=== PATIENT | male | born 1955 ===

== ENCOUNTER 2018-05-11 09:29 | Emergency (ER) | payer OTHER, MEDICARE ==
[~2018-05-11] VITALS: Ht 154.9 cm; Wt 127.0 kg
[~2018-05-11 09:29] MED LIST: ACET500 PO; ALBU90OI INH; ASCO500 PO; ASPI81CH PO; ATOR80 PO; CAVERJECT XX; CHOL10002 PO; DOCU100 PO; FOLI1 PO; FURO40 PO; Fergon240 M1 PO; GABA300 PO; ISOMON20 PO; Lantus100 UNIT/1; Lisinopril2.5 MG PO; NITR.4SL SL; Omeprazole20 M1 PO; POLYOX WSR-3011 GM MC; POTCHL10ER PO; POTCHL20ER PO; STRIVERDI RESPIM4 GM INH; TAMS.4ER PO; TUCKS1 EACH PR
[2018-05-11 10:39] LABS: BASOPHILS ABSOLUTE AUTO 0.02 K/mm3 (0.00-0.23); BASOPHILS PERCENT AUTO 0 % (0-2); EOSINOPHILS ABSOLUTE AUTO 0.19 K/mm3 (0.00-0.68); EOSINOPHILS PERCENT AUTO 3 % (0-6); Hematocrit 40.7 % (37.0-53.0); Hemoglobin 12.6 g/dL (13.5-17.5); IMMATURE GRAN ABSOLUTE AUTO 0.02 K/mm3 (0.00-0.10); IMMATURE GRAN PERCENT AUTO 0 % (0-1); LYMPHOCYTES ABSOLUTE AUTO 1.27 K/mm3 (0.84-5.20); LYMPHOCYTES PERCENT AUTO 19 % (21-46); MONOCYTES ABSOLUTE AUTO 0.72 K/mm3 (0.16-1.47); MONOCYTES PERCENT AUTO 11 % (4-13); Mean Corpuscular HGB 24.7 pg (26.0-34.0); Mean Corpuscular Volume 80 fL (80-100); Mean Platelet Volume 10.2 fL (9.1-12.4); NEUTROPHILS ABSOLUTE AUTO 4.33 K/mm3 (1.96-9.15); NEUTROPHILS PERCENT AUTO 66 % (41-73); Platelet Count 182 K/mm3 (150-400); RDW Coefficient Variation 19.3 % (11.7-14.2); RDW Standard Deviation 54.7 fL (35.1-46.3); Red Blood Cell Count 5.11 M/mm3 (4.30-5.90); White Blood Cell Count 6.55 K/mm3 (4.00-11.30)
[2018-05-11 10:48] LABS: Alanine Aminotransfer (ALT/SGP 29 U/L (12-78); Albumin/Globulin Ratio 0.7 (0.8-1.8); Alk Phos 79 U/L (50-136); Anion Gap 7 mmol/L (6-16); Aspartate Aminotrans (AST/SGOT 25 U/L (12-37); Bilirubin, Total 0.5 mg/dL (0.1-1.0); Blood Urea Nitrogen 5 mg/dL (8-24); Bun/Creatinine Ratio 7.3 (12.0-20.0); CO2, Blood 31 mmol/L (21-32); Calcium, Blood 7.8 mg/dL (8.5-10.1); Chloride, Blood 106 mmol/L (98-108); Creatinine, Blood 0.69 mg/dL (0.60-1.20); Globulin, Blood 4.6 g/dL (2.2-4.0); Glomerular Filtration Rate >60 (60-); Glucose, Blood 106 mg/dL (70-99); Potassium, Blood 3.2 mmol/L (3.5-5.5); Sodium, Blood 144 mmol/L (136-145); Total Protein, Blood 7.6 g/dL (6.4-8.2); Troponin I 0.019 ng/mL (0.000-0.040)
== END 2018-05-11 12:14 | disposition home or self-care (01) ==
LOC: ER 09:29
PROVIDERS: Emergency Medicine
DX: R07.89 Other chest pain (principal); Z76.0 Encounter for issue of repeat prescription; Z88.6 Allergy status to analgesic agent; Z88.0 Allergy status to penicillin; Z88.8 Allergy status to other drugs, medicaments and biological substances; Z88.1 Allergy status to other antibiotic agents; Z79.899 Other long term (current) drug therapy; Z79.82 Long term (current) use of aspirin; Z79.4 Long term (current) use of insulin; I11.0 Hypertensive heart disease with heart failure; I50.9 Heart failure, unspecified; E11.40 Type 2 diabetes mellitus with diabetic neuropathy, unspecified; J44.9 Chronic obstructive pulmonary disease, unspecified; F43.10 Post-traumatic stress disorder, unspecified
CPT/HCPCS: 36415; 71046; 80053; 82947; 84484; 85025; 93005; 93010; 99285-25

== ENCOUNTER 2018-11-02 04:16 | Inpatient (IN) | payer OTHER, MEDICARE ==
[~2018-11-02] VITALS: Ht 154.9 cm; Wt 133.8 kg
[~2018-11-02 04:16] MED LIST changes: -Lantus100 UNIT/1; +Lantus100 UNIT/1 SC
[2018-11-02 04:40] LABS: BASOPHILS ABSOLUTE AUTO 0.03 K/mm3 (0.00-0.23); BASOPHILS PERCENT AUTO 0 % (0-2); EOSINOPHILS ABSOLUTE AUTO 0.15 K/mm3 (0.00-0.68); EOSINOPHILS PERCENT AUTO 2 % (0-6); Hematocrit 33.9 % (37.0-53.0); Hemoglobin 10.5 g/dL (13.5-17.5); IMMATURE GRAN ABSOLUTE AUTO 0.06 K/mm3 (0.00-0.10); IMMATURE GRAN PERCENT AUTO 1 % (0-1); LYMPHOCYTES ABSOLUTE AUTO 1.92 K/mm3 (0.84-5.20); LYMPHOCYTES PERCENT AUTO 23 % (21-46); MONOCYTES ABSOLUTE AUTO 0.74 K/mm3 (0.16-1.47); MONOCYTES PERCENT AUTO 9 % (4-13); Mean Corpuscular HGB 24.6 pg (26.0-34.0); Mean Corpuscular Volume 79 fL (80-100); Mean Platelet Volume 9.3 fL (9.1-12.4); NEUTROPHILS PERCENT AUTO 66 % (41-73); Platelet Count 254 K/mm3 (150-400); RDW Coefficient Variation 18.9 % (11.7-14.2); RDW Standard Deviation 54.4 fL (35.1-46.3); Red Blood Cell Count 4.27 M/mm3 (4.30-5.90)
[2018-11-02 04:59] LABS: Alanine Aminotransfer (ALT/SGP 29 U/L (12-78); Albumin, Blood 2.8 g/dL (3.4-5.0); Albumin/Globulin Ratio 0.6 (0.8-1.8); Alk Phos 63 U/L (50-136); Anion Gap 7 mmol/L (6-16); Aspartate Aminotrans (AST/SGOT 23 U/L (12-37); Bilirubin, Total 0.5 mg/dL (0.1-1.0); Blood Urea Nitrogen 13 mg/dL (8-24); Bun/Creatinine Ratio 16.5 (12.0-20.0); CO2, Blood 28 mmol/L (21-32); Calcium, Blood 7.5 mg/dL (8.5-10.1); Chloride, Blood 106 mmol/L (98-108); Creatinine, Blood 0.79 mg/dL (0.60-1.20); Globulin, Blood 4.5 g/dL (2.2-4.0); Glomerular Filtration Rate >60 (60-); Glucose, Blood 126 mg/dL (70-99); Potassium, Blood 3.1 mmol/L (3.5-5.5); Sodium, Blood 141 mmol/L (136-145); Total Protein, Blood 7.3 g/dL (6.4-8.2); Troponin I 0.017 ng/mL (0.000-0.040)
[2018-11-02 11:20] LABS: Source, Urine Clean Catch
[2018-11-02 11:24] LABS: Bilirubin, Urine Neg (Neg); Blood, Urine 3+ (Neg); Glucose Qualitative, Urine Neg (Neg); Ketones, Urine Neg (Neg); Leukocyte Esterase, Urine Neg (Neg); Nitrite, Urine Neg (Neg); Protein, Urine Neg (Neg); Specific Gravity, Urine 1.015 (1.003-1.022); Urobilinogen, Urine NORM (Normal)
[2018-11-02 11:45] LABS: Appearance, Urine Clear (Clear); Color, Urine Pale Yellow (P-Yellow)
[2018-11-02 11:51] LABS: Bacteria Not Seen /hpf; Red Blood Cells, Urine 0-2 /hpf (0-2); Squamous Epithelial Cells Not Seen /hpf (Few); White Blood Cells, Urine Not Seen /hpf (0-5)
[2018-11-02 13:29] LABS: CPK Creatine Kinase 99 U/L (39-308); Troponin I <0.015 ng/mL (0.000-0.040)
--- NOTE | 2018-11-02 17:16 | NUR ---
SHIFT SUMMARY PT HAS DONE WELL SINCE ARRIVAL TO UNIT THIS AM. NO C/O CP OR SOB. RECIEVED TWO K-RIDER, SALINE LOCKED AT THIS TIME. TOLERATING REGULAR DIET, NO N/V. SBA W/TRANSFERS.
[2018-11-02 21:35] LABS: CPK Creatine Kinase 73 U/L (39-308); Troponin I <0.015 ng/mL (0.000-0.040)
--- NOTE | 2018-11-03 00:25 | NUR ---
PT TRANSFER TO MED FLOOR: REPORT GIVEN TO EL León RN AT ABOUT 0000. PT TRANSFERED TO ROOM 311 AT ABOUT 0016.
--- NOTE | 2018-11-03 04:52 | NUR ---
SHIFT SUMMARY: PT IS ALERT AND ORIENTED. PT IS A ONE PERSON ASSIST WITH FWW. PT CALLING OUT OFTEN WHILE IN HIS SLEEP, REPORTS THAT HE HAS NIGHTMARES. PT DID NOT USE HIS CALL LIGHT OVERNIGHT. PT WORE CPAP INTERMITTENTLY. O2 @ 2 L KEEPING SATS > 90%, REPORTS SOB UPON EXERTION. PT DENIES PAIN, NAUSEA, AND VOMITING. NO ACUTE CHANGES OR COMPLICATIONS THIS SHIFT. WILL REPORT TO DAY NURSE.
[2018-11-03 06:54] LABS: Hematocrit 33.4 % (37.0-53.0); Mean Corpuscular HGB 24.5 pg (26.0-34.0); Mean Corpuscular HGB Conc 29.9 g/dL (31.5-36.5); Mean Platelet Volume 9.4 fL (9.1-12.4); Platelet Count 238 K/mm3 (150-400); RDW Coefficient Variation 19.5 % (11.7-14.2); RDW Standard Deviation 57.9 fL (35.1-46.3); Red Blood Cell Count 4.08 M/mm3 (4.30-5.90); White Blood Cell Count 8.21 K/mm3 (4.00-11.30)
[2018-11-03 07:14] LABS: Alanine Aminotransfer (ALT/SGP 28 U/L (12-78); Albumin, Blood 2.8 g/dL (3.4-5.0); Albumin/Globulin Ratio 0.6 (0.8-1.8); Alk Phos 62 U/L (50-136); Anion Gap 6 mmol/L (6-16); Aspartate Aminotrans (AST/SGOT 17 U/L (12-37); Bilirubin, Total 0.5 mg/dL (0.1-1.0); Blood Urea Nitrogen 20 mg/dL (8-24); Bun/Creatinine Ratio 21.2 (12.0-20.0); CHOL/HDL RATIO 4.5; CO2, Blood 31 mmol/L (21-32); Calcium, Blood 7.8 mg/dL (8.5-10.1); Chloride, Blood 102 mmol/L (98-108); Cholesterol 125 mg/dL (50-200); Creatinine, Blood 0.94 mg/dL (0.60-1.20); Globulin, Blood 4.5 g/dL (2.2-4.0); Glomerular Filtration Rate >60 (60-); Glucose, Blood 111 mg/dL (70-99); HDL Cholesterol 28 mg/dL (>39); LDL/HDL RATIO 2.3; Low Density Lipoprotein Chol 65 mg/dL (0-110); Magnesium, Blood 1.7 mg/dL (1.6-2.4); Phosphorus, Blood 4.2 mg/dL (2.5-4.9); Sodium, Blood 139 mmol/L (136-145); Total Protein, Blood 7.3 g/dL (6.4-8.2); Triglycerides 158 mg/dL (30-160); Very Low Density Lipoprot Chol 31 mg/dL (6-32)
[2018-11-03 07:32] LABS: Mean Corpuscular Volume 82 fL (80-100)
--- NOTE | 2018-11-03 07:54 | NUR ---
ASSUMED CARE: PT WEARING BIPAP WHEN FIRST ENTERED ROOM. FEW MINUTES LATER PT SET OFF BED ALARM AND SAT ON SIDE OF BED. STATED HE NEEDED TO GET UP IN CHAIR AND NEEDED FOOD BECAUSE HE WAS "FAMISHED." CHECKED CBG AND PROVIDED SNACKS. CALL LIGHT IN REACH
--- NOTE | 2018-11-03 14:07 | NUR ---
PT FINISHED LUNCH AND CONTINUED TO STATE HE WAS HUNGRY AND WANTED MORE FOOD. BLOOD SUGARS HAVE BEEN STABLE. SNACK PROVIDED. PT CONTINUES TO INSIST HE NEEDS MORE. DISCUSSED WITH HIM THAT HE HAS TO SHARE WITH EVERY OTHER PATIENT ON THE FLOOR AND THAT WE CAN'T KEEP GIVING SNACKS, IN AN ATTEMPT TO LIMIT PER ADA DIET. PT SEEMED AGREEABLE TO THIS
--- NOTE | 2018-11-03 15:07 | NUR ---
PT C/O HEMORRHOID ITCHING AND PAIN AND REQUESTED CREAM. ALSO WONDERED ABOUT NODULE IN LUNG THAT [facility] DISCUSSED WITH HIM AND WANTED TO KNOW IF WE COULD FOLLOW UP ON THIS. DISCUSSED WITH DR CIFUENTES WHO SAYS SHE WILL FOLLOW UP ON NODULE AND GAVE ORDERS FOR CREAM
--- NOTE | 2018-11-03 19:01 | NUR ---
THIS PT HAS USED THE URINAL ON HIS OWN TODAY. HE HAS BEEN IN THE RECLINER ALL THROUGHOUT THE SHIFT WATCHING THE SUPERBOWL. HE CAN BECOME UPSET AT TIMES, USUALLY AROUND MEALTIME. HE USES HIS FWW WHEN STANDING. 1,500 FLUID RESTRICTION.
--- NOTE | 2018-11-04 05:33 | NUR ---
SHIFT SUMMARY: PT IS ALERT AND ORIENTED. PT IS MUCH CALMER AND COOPERATIVE TONIGHT. PT CALLS APPROPRIATELY. PT IS A ONE PERSON ASSIST WITH FWW. PT SLEPT MUCH OF THE NIGHT WHEN NOT DISTURBED. PT CONTINUES TO REPORT INTERMITTENT SOB, O2 @ 2 L, CPAP OVERNIGHT. PT DENIES PAIN, NAUSEA, AND VOMITING. NO ACUTE CHANGES OR COMPLICATIONS THIS SHIFT. BED IN LOW POSITION, CALL LIGHT WITHIN REACH. WILL REPORT TO DAY NURSE.
[2018-11-04 06:18] LABS: Anion Gap 6 mmol/L (6-16); Blood Urea Nitrogen 18 mg/dL (8-24); CO2, Blood 34 mmol/L (21-32); Calcium, Blood 8.1 mg/dL (8.5-10.1); Chloride, Blood 101 mmol/L (98-108); Glucose, Blood 136 mg/dL (70-99); Sodium, Blood 141 mmol/L (136-145)
[2018-11-04 06:53] LABS: Bun/Creatinine Ratio 22.5 (12.0-20.0); Glomerular Filtration Rate >60 (60-); Phosphorus, Blood 3.6 mg/dL (2.5-4.9)
--- NOTE | 2018-11-04 12:12 | NUR ---
NOTIFIED DR. CIFUENTES THAT PT IS CONCERNED ABOUT STRANGE INDENT THAT ALMOST LOOKS LIKE A SCAR ON HIS LOWER BACK. DR. CIFUENTES REPORTS SHE WILL TAKE A LOOK.
--- NOTE | 2018-11-04 16:01 | NUR ---
patient was sitting up in his chair eating lunch when I entered the room. Patient requested that I cast the deamons out of his room. I listened empathically, explored congregational beliefs, provided pastoral investment counselor, provided a Pentec[employer]ism Bible and provided prayer for the removal of the "deamons" from the room. Patient responded well to all interventions and displayed evidence of reduced stress and restored mae. Patient said that he will be able to sleep well tonight. Patient expressed gratitude for visit and prayer.
--- NOTE | 2018-11-04 18:19 | NUR ---
SHIFT SUMMARY- PT IRRITABLE AND WANTING TO LEAVE AMA THIS AM. CIELO, CHARGE NURSE SPOKE WITH PT AND PT DECIDED TO STAY. PT DENIES PAIN. DENIES N/V. DYSPNEA UPON EXERTION. SBA WITH FWW TO THE BATHROOM. PT REPORTS SEEING [facility] THE LAST TWO NIGHTS AND THAT THEY ARE TRYING TO GET HIM. PT REQUESTS TO SPEAK WITH SPIRITUAL CARE. SPIRITUAL CARE IN TO SEE PT. PT TRANSFERED TO SPECIAL CARE UNIT DUE TO OTHER PT'S IN NEARBY ROOMS COMPLAINING ABOUT THE PT'S VOLUME AND PROFANITY. REPORT GIVEN TO CARLOS. NO OTHER SIGNIFICANT CHANGES THIS SHIFT.
--- NOTE | 2018-11-04 18:30 | NUR ---
PT GAVE AUTHORIZATION FOR STUDENT NURSE TO PERFORM ASSESSMENT AND PROVIDE CARE ON 2018
--- NOTE | 2018-11-05 06:09 | NUR ---
*SHIFT SUMMARY* PATIENT IS ALERT AND ORIENTED. PATIENT IS ANXIOUS ABOUT CURRENT ILLNESS. PATIENT REPORTS CONCERN ABOUT A NODULE ON HIS LUNG. PATIENT ATE ALL OF HIS DINNER AND CONTINUED TO REQUEST FOOD AND DRINKS. STAFF EXPLAINED THAT HE WAS ON A FLUID RESTRICTION OF 1500 MLS. PATIENT SLEPT THROUGHOUT THE NIGHT ON CPAP WITH CONTINUOUS PULSE OXIMETRY. BLOOD PRESSURE WAS LOW AT BEGINING OF SHIFT, RECHECKED BLOOD PRESSURE AFTER PATIENT LAID DOWN AND BP INCREASED WNL. PATIENT SLEPT IN CHAIR WITH FEET DOWN MOST OF THE TIME. THIS MORNING HE REPORTED HIS FEET HURT AND AGREED TO ELEVATE THEM. PATIENT DID NOT REPORT ANY CHEST PAINS THROUGHOUT THE NIGHT. CALL LIGHT WITHIN REACH.
[2018-11-05 06:17] LABS: Albumin, Blood 3.1 g/dL (3.4-5.0); Anion Gap 7 mmol/L (6-16); Blood Urea Nitrogen 24 mg/dL (8-24); Bun/Creatinine Ratio 28.2 (12.0-20.0); CO2, Blood 32 mmol/L (21-32); Calcium, Blood 8.5 mg/dL (8.5-10.1); Chloride, Blood 100 mmol/L (98-108); Creatinine, Blood 0.85 mg/dL (0.60-1.20); Glomerular Filtration Rate >60 (60-); Glucose, Blood 102 mg/dL (70-99); Phosphorus, Blood 3.9 mg/dL (2.5-4.9); Potassium, Blood 3.7 mmol/L (3.5-5.5); Sodium, Blood 139 mmol/L (136-145)
[2018-11-05] MEDS ORDERED: Preparation H C51 GM PR (13:26)
--- NOTE | 2018-11-05 15:49 | NUR ---
PATIENT DISCHARGED TO HOME. CURRENTLY LIVING AT THE [facility]. PATIENT STATED HE UNDERSTOOD DISCHARGE INSTRUCTIONS TO FOLLOW UP WITH THE [facility] FOR A PET SCAN. MEDICATION ORDER FAXED TO [facility] VIA GOLD TEAM. IV ACCESS REMOVED. PATIENT ASKED RN TO CALL A TAXI FOR HIM. PATIENT STATED HE WOULD PRIVATELY PAY FOR THE RIDE. PATIENT STATED HE HAD NO FURTHER QUESTIONS. ESCORTED OUT VIA WHEELCHAIR WITH RN. PATIENT GOT SELF INTO TAXI. UPON RETURN TO FLOOR RN RECIEVED A CALL FROM [employer] STATING THAT THE PATIENT WAS CLAIMING [employer] WAS PAYING FOR HIS TAXI, RN REITERATED THAT PATIENT STATED PREVIOUSLY THAT HE WAS PAYING FOR THE RIDE
== END 2018-11-05 14:55 | disposition home health service (06) | DRG 291 ==
LOC: ER 04:16 → MEDS 04:17 → SURS 08:01 → MEDS 11-03 00:15
PROVIDERS: Emergency Medicine; Internal Medicine; ADMIT Internal Medicine
DX: I11.0 Hypertensive heart disease with heart failure (principal); I50.31 Acute diastolic (congestive) heart failure; J96.01 Acute respiratory failure with hypoxia; E66.2 Morbid (severe) obesity with alveolar hypoventilation; Z68.43 Body mass index [BMI] 50.0-59.9, adult; G47.33 Obstructive sleep apnea (adult) (pediatric); J44.9 Chronic obstructive pulmonary disease, unspecified; E11.40 Type 2 diabetes mellitus with diabetic neuropathy, unspecified; N40.0 Benign prostatic hyperplasia without lower urinary tract symptoms; K21.9 Gastro-esophageal reflux disease without esophagitis; D50.9 Iron deficiency anemia, unspecified; E87.6 Hypokalemia; F43.10 Post-traumatic stress disorder, unspecified; Z79.82 Long term (current) use of aspirin; Z79.4 Long term (current) use of insulin; Z79.899 Other long term (current) drug therapy; Z88.6 Allergy status to analgesic agent; Z88.1 Allergy status to other antibiotic agents; Z88.5 Allergy status to narcotic agent; Z88.0 Allergy status to penicillin
CPT/HCPCS: 36415; 71045; 80053; 80061; 80069; 81001; 82550; 82947; 83036; 83735; 83880; 84100; 84484; 85025; 85027; 93005; 93010; 93306; 93971; 94640; 94660; 94761; 94762; 96365; 96366; 96372; 96374; 96375; 96376; 97110; 97161; 97165; 97530; 99285-25; G0378; J1650; J1940; J2405; J3010; J3480

== ENCOUNTER 2018-11-20 03:50 | Emergency (ER) | payer OTHER, MEDICARE ==
[~2018-11-20] VITALS: Ht 154.9 cm; Wt 134.3 kg
[~2018-11-20 03:50] MED LIST changes: +Preparation H C51 GM PR
== END 2018-11-20 05:20 | disposition home or self-care (01) ==
LOC: ER 03:50
DX: S80.12XA Contusion of left lower leg, initial encounter (principal); S80.11XA Contusion of right lower leg, initial encounter; I11.0 Hypertensive heart disease with heart failure; I50.9 Heart failure, unspecified; E11.40 Type 2 diabetes mellitus with diabetic neuropathy, unspecified; J44.9 Chronic obstructive pulmonary disease, unspecified; F43.10 Post-traumatic stress disorder, unspecified; Z88.0 Allergy status to penicillin; Z88.5 Allergy status to narcotic agent; Z88.6 Allergy status to analgesic agent; Z88.1 Allergy status to other antibiotic agents; Z79.82 Long term (current) use of aspirin; Z79.4 Long term (current) use of insulin; Z79.899 Other long term (current) drug therapy; V89.2XXA Person injured in unspecified motor-vehicle accident, traffic, initial encounter
CPT/HCPCS: 99283

== ENCOUNTER 2018-12-06 21:20 | Inpatient (IN) | payer MEDICARE ==
[~2018-12-06] VITALS: Ht 172.7 cm; Wt 126.5 kg
[2018-12-06 21:43] LABS: BASOPHILS ABSOLUTE AUTO 0.05 K/mm3 (0.00-0.23); BASOPHILS PERCENT AUTO 0 % (0-2); EOSINOPHILS ABSOLUTE AUTO 0.02 K/mm3 (0.00-0.68); EOSINOPHILS PERCENT AUTO 0 % (0-6); Hemoglobin 11.3 g/dL (13.5-17.5); IMMATURE GRAN ABSOLUTE AUTO 0.08 K/mm3 (0.00-0.10); IMMATURE GRAN PERCENT AUTO 1 % (0-1); LYMPHOCYTES ABSOLUTE AUTO 1.43 K/mm3 (0.84-5.20); LYMPHOCYTES PERCENT AUTO 12 % (21-46); MONOCYTES ABSOLUTE AUTO 0.92 K/mm3 (0.16-1.47); MONOCYTES PERCENT AUTO 8 % (4-13); Mean Corpuscular HGB 24.1 pg (26.0-34.0); Mean Corpuscular Volume 83 fL (80-100); Mean Platelet Volume 9.7 fL (9.1-12.4); NEUTROPHILS ABSOLUTE AUTO 9.78 K/mm3 (1.96-9.15); NEUTROPHILS PERCENT AUTO 80 % (41-73); Platelet Count 264 K/mm3 (150-400); RDW Coefficient Variation 19.7 % (11.7-14.2); RDW Standard Deviation 59.5 fL (35.1-46.3); Red Blood Cell Count 4.68 M/mm3 (4.30-5.90); White Blood Cell Count 12.28 K/mm3 (4.00-11.30)
[2018-12-06 21:46] LABS: PCO2 Arterial 74.1 mmHg (35-45); PO2 Arterial 107 mmHg (80-100); pH Blood Arterial 7.27 (7.35-7.45)
[2018-12-06 22:14] LABS: Alanine Aminotransfer (ALT/SGP 28 U/L (12-78); Albumin, Blood 3.1 g/dL (3.4-5.0); Albumin/Globulin Ratio 0.6 (0.8-1.8); Alk Phos 66 U/L (50-136); Anion Gap 3 mmol/L (6-16); Aspartate Aminotrans (AST/SGOT 20 U/L (12-37); Bilirubin, Total 0.3 mg/dL (0.1-1.0); Blood Urea Nitrogen 23 mg/dL (8-24); Bun/Creatinine Ratio 28.9 (12.0-20.0); CO2, Blood 34 mmol/L (21-32); Calcium, Blood 8.2 mg/dL (8.5-10.1); Chloride, Blood 105 mmol/L (98-108); Globulin, Blood 5.5 g/dL (2.2-4.0); Glomerular Filtration Rate >60 (60-); Glucose, Blood 112 mg/dL (70-99); Potassium, Blood 4.1 mmol/L (3.5-5.5); Sodium, Blood 142 mmol/L (136-145); Total Protein, Blood 8.6 g/dL (6.4-8.2); Troponin I 0.036 ng/mL (0.000-0.040)
[2018-12-06 23:12] LABS: U Amphetamine Screen DETECTED; U Barbituate Screen Not Detected; U Benzodiazapine Screen Not Detected; U Buprenorphine Screen Not Detected; U Cannabinoids Screen Not Detected; U Cocaine Screen Not Detected; U Methadone Screen Not Detected; U Methamphetamine Screen DETECTED; U Opiates Screen Not Detected; U Oxycodone Screen Not Detected; U Phencyclidine Screen Not Detected; U Propoxyphene Screen Not Detected
--- NOTE | 2018-12-07 01:15 | NUR ---
ASSUMED PT CARE PT ARRIVED ON UNIT VIA STRETCHER. PT OBTUNDED; NOT AROUSING OR RESPONDING TO ANY VERBAL STIMULI; ABRUBTLY WILL OPEN EYES AND THROW ARMS UP IN THE AIR AFTER PRESSURE/PAINFUL STIMULI. HOWEVER, PT IS NOT RESPONDING OR FOLLOWING ANY DIRECTIONS. PT PLACED ON AIRVO WITH FIO2 AT 52%; OXYGEN SATURATIONS WERE LOW 90'S WITH DROPS DOWN INTO THE 80'S. RESPIRATORY THERAPY PLACED PT ON BIPAP WITH 16/7; FIO2 40% WITH OXYGEN SATURATIONS MAINTAINING 91-92%. LUNG SOUNDS HAVE NOTED INSPIRATORY RHONCHI AND EXPIRATORY WHEEZES; BILATERAL BASES ARE TIGHT AND DIMINISHED; NOTED AUDIBLE SNORING. ELEVATED BP'S UPON ARRIVAL. 18G TO RIGHT HAND; 20G TO RIGHT AC. WILL CONTINUE TO MONITOR
[2018-12-07 03:36] LABS: BASOPHILS ABSOLUTE AUTO 0.02 K/mm3 (0.00-0.23); BASOPHILS PERCENT AUTO 0 % (0-2); EOSINOPHILS ABSOLUTE AUTO 0.01 K/mm3 (0.00-0.68); EOSINOPHILS PERCENT AUTO 0 % (0-6); Hematocrit 40.7 % (37.0-53.0); Hemoglobin 11.6 g/dL (13.5-17.5); IMMATURE GRAN ABSOLUTE AUTO 0.09 K/mm3 (0.00-0.10); IMMATURE GRAN PERCENT AUTO 1 % (0-1); LYMPHOCYTES ABSOLUTE AUTO 0.53 K/mm3 (0.84-5.20); LYMPHOCYTES PERCENT AUTO 4 % (21-46); MONOCYTES ABSOLUTE AUTO 0.23 K/mm3 (0.16-1.47); MONOCYTES PERCENT AUTO 2 % (4-13); Mean Corpuscular HGB 24.4 pg (26.0-34.0); Mean Corpuscular HGB Conc 28.5 g/dL (31.5-36.5); Mean Platelet Volume 9.6 fL (9.1-12.4); NEUTROPHILS ABSOLUTE AUTO 12.36 K/mm3 (1.96-9.15); NEUTROPHILS PERCENT AUTO 93 % (41-73); Platelet Count 256 K/mm3 (150-400); RDW Coefficient Variation 19.7 % (11.7-14.2); RDW Standard Deviation 61.5 fL (35.1-46.3); Red Blood Cell Count 4.75 M/mm3 (4.30-5.90); White Blood Cell Count 13.24 K/mm3 (4.00-11.30)
[2018-12-07 03:37] LABS: Mean Corpuscular Volume 86 fL (80-100)
[2018-12-07 03:56] LABS: Alanine Aminotransfer (ALT/SGP 33 U/L (12-78); Albumin, Blood 3.2 g/dL (3.4-5.0); Albumin/Globulin Ratio 0.6 (0.8-1.8); Alk Phos 72 U/L (50-136); Anion Gap 3 mmol/L (6-16); Aspartate Aminotrans (AST/SGOT 22 U/L (12-37); Bilirubin, Total 0.3 mg/dL (0.1-1.0); Blood Urea Nitrogen 21 mg/dL (8-24); Bun/Creatinine Ratio 26.3 (12.0-20.0); CO2, Blood 35 mmol/L (21-32); Chloride, Blood 101 mmol/L (98-108); Globulin, Blood 5.8 g/dL (2.2-4.0); Glomerular Filtration Rate >60 (60-); Glucose, Blood 144 mg/dL (70-99); Potassium, Blood 4.5 mmol/L (3.5-5.5); Sodium, Blood 139 mmol/L (136-145)
[2018-12-07 04:20] LABS: PCO2 Arterial 95.8 mmHg (35-45); PO2 Arterial 73.7 mmHg (80-100)
--- NOTE | 2018-12-07 04:35 | NUR ---
DR. BELL AT BEDSIDE TO ASSESS PT D/T CRITICAL LAB RESULTS. PT REMAINS OBTUNDED. BIPAP HAS BEEN IN PLACE SINCE ARRIVAL TO UNIT AT 0115. DR. BELL REVIEWED BIPAP SETTINGS AND TIDAL VOLUMES. NEW ORDERS TO INTUBATE. ED PHYSICIAN CALLED UP TO INTUBATE. DR. BELL GAVE ORDERS FOR WOOD FURNITURE ASSEMBLER CONSULT, CXR, ABG, AND TO FOLLOW UP WITH HIM REGARDING VENT SETTINGS.
[2018-12-07 05:24] LABS: PO2 Arterial 224 mmHg (80-100)
[2018-12-07 05:25] LABS: PCO2 Arterial 85.3 mmHg (35-45); pH Blood Arterial 7.23 (7.35-7.45)
--- NOTE | 2018-12-07 05:30 | NUR ---
INTUBATION RESTRAINTS PLACED AT 0440. ED DOCTOR AT BEDSIDE WITH ORDERS TO ADMINISTER 20MG OF ETOMIDATE AND 150MG OF SUCC'S. ETT 8.0 PLACED AT 0444; 25 AT THE LIP. BILATERAL BREATH SOUNDS NOTED WITH GOOD COLOR CHANGE. OG PLACED AT 0449; PLACEMENT CHECKED AND CONFIRMED WITH CXR. HOOKED TO LOW INTERMITTENT SUCTION. VENT SETTINGS: AC 16; TV 400; PEEP 5; FIO2 100%. POST ABG RESULTS VENT SETTINGS CHANGED TO AC 18 AND FIO2 70%. PT REMAINS ON SEDATION OF PROPOFOL 50MCG/KG.
[2018-12-07 05:44] LABS: Source, Urine Catheter
[2018-12-07 05:49] LABS: Bilirubin, Urine Neg (Neg); Blood, Urine 5+ (Neg); Glucose Qualitative, Urine Neg (Neg); Ketones, Urine Neg (Neg); Leukocyte Esterase, Urine Neg (Neg); Nitrite, Urine Neg (Neg); Protein, Urine 3+ (Neg); Urobilinogen, Urine NORM (Normal)
[2018-12-07 06:20] LABS: Color, Urine Pale Yellow (P-Yellow)
[2018-12-07 06:21] LABS: Amorphous Mod (0-Heavy); Appearance, Urine Hazy (Clear); Bacteria Rare /hpf; Red Blood Cells, Urine 0-2 /hpf (0-2); Squamous Epithelial Cells Not Seen /hpf (Few); White Blood Cells, Urine Not Seen /hpf (0-5)
--- NOTE | 2018-12-07 06:37 | NUR ---
END OF SHIFT SUMMARY UPON ARRIVAL TO UNIT PT HAS BEEN OBTUNDED WITH OCCASIONAL RESTLESSNESS. PT DID NOT FOLLOW ANY COMMANDS. HE WOULD OPEN HIS EYES AND FLAIL HIS ARMS AFTER PRESSURE OR PAINFUL STIMULI. PINPOINT PUPILS NOTED WELL. BIPAP WAS PLACED UPON ARRIVAL TO UNIT WITH SETTINGS 16/7 AND FIO2 35%; PT ALSO PULLING GOOD TV. LUNGS SOUNDS HAD NOTED RHONCHI T/O WITH TIGHT/DIMINISHED BILATERAL BASES. AFTER [address] BELL CAME UP TO ASSESS PT AT BEDSIDE AND DECIDED TO HAVE THE ED PHYSICIAN COME UP TO INTUBATE. SEE INTUBATION NOTE. PT IS NOW SEDATED WITH PROPOFOL AT 50MCG/KG; VENT SETTINGS AC 18; TV 400; PEEP 5; FIO2 70%. HIDALGO CATHETER PLACED BY OUTSIDE PROPERTY AGENT; PATENT AND DRAINING TO GRAVITY YELLOW, CLEAR URINE. PT APPEARS COMFORTABLE AT THIS TIME
[2018-12-07 06:50] LABS: PCO2 Arterial 68.3 mmHg (35-45); PO2 Arterial 101 mmHg (80-100); pH Blood Arterial 7.33 (7.35-7.45)
--- NOTE | 2018-12-07 07:01 | NUR ---
ASSUMED CARE: PT IN BED, BILATERAL WRIST RESTRAINTS, VENTILATOR AT AC 18/400/60%/5. PROPOFOL AT 50MCG/KG/MIN WITH PT FIDGETING WHEN STIMULATED. OG AT LIS AND HIDALGO CATH IN PLACE. APPEARS COMFORTABLE WHEN ALLOWED TO REST. RT IN ROOM AT THIS TIME.
--- NOTE | 2018-12-07 18:01 | NUR ---
RESIDUAL CHECKED WHILE DR TORRES IN ROOM WITH RESULT OF 60. SHORTLY AFTER, PT BEGAN COUGHING AND TUBE FEED WAS NOTED COMING OUT OF NOSE. LARGE AMOUNT CAME OUT OF MOUTH WELL. AUDIT MGR CALLED TO ROOM AND TUBE FEEDING TURNED OFF. PT PLACED IN HIGH HERNANDEZ'S POSITION AND SUCTION COMPLETED. CALL TO DR TORRES WITH INSTRUCTIONS TO HOLD TUBE FEED OVER NIGHT AND TO SWITCH BACK TO LIS. GREEN FLUID NOTED COMING FROM THIS. DISCUSSED WITH AUDIT MGR FURTHER AND PT REMAINS IN HIGH HERNANDEZ'S AT THIS TIME. XRAY SCHEDULED FOR AM
--- NOTE | 2018-12-07 18:16 | NUR ---
SHIFT SUMMARY: PT VENTED ON AC 18/400/5/50% SATTING MID TO LOW 90S. LUNG SOUNDS SLIGHTLY COARSE AFTER EMESIS EPISODE. DR TORRES AWARE OF THIS AND EPISODE. OG AT LIS PER DR KNOWLES. RESTRAINTS BILATERAL WRISTS AND PROPOFOL AT 50 MCG/KG/MIN DUE TO INCREASING AGITATION WITH STIMULATION. HIDALGO IN PLACE. NO BM THIS SHIFT. NO FURTHER NEEDS NOTED.
--- NOTE | 2018-12-07 19:30 | NUR ---
ASSUMED PT CARE PT SEDATED AND INTUBATED. PROPOFOL INFUSING AT 50MCG/KG. VENT SETTINGS AC 18; TV 400; PEEP 5; FIO2 50%. OG IS CONNECTED TO LOW INTERMITTENT SUCTION WITH YELLOW STOMACH CONTENTS NOTED IN SUCTION CANNISTER. BILATERAL SOFT WRIST RESTRAINTS REMAIN IN PLACE. PT IS QUIET AT THIS TIME; NOT PULLING ON RESTRAINTS. HIDALGO CATH APPEARS PATENT AND DRAINING CLEAR, YELLOW URINE TO GRAVITY. NO FAMILY AT BEDSIDE.
[2018-12-08 04:00] LABS: BASOPHILS PERCENT AUTO 0 % (0-2); EOSINOPHILS PERCENT AUTO 0 % (0-6); Hematocrit 36.6 % (37.0-53.0); Hemoglobin 11.1 g/dL (13.5-17.5); IMMATURE GRAN ABSOLUTE AUTO 0.05 K/mm3 (0.00-0.10); IMMATURE GRAN PERCENT AUTO 1 % (0-1); LYMPHOCYTES ABSOLUTE AUTO 0.67 K/mm3 (0.84-5.20); LYMPHOCYTES PERCENT AUTO 7 % (21-46); MONOCYTES ABSOLUTE AUTO 0.38 K/mm3 (0.16-1.47); MONOCYTES PERCENT AUTO 4 % (4-13); Mean Corpuscular HGB 24.4 pg (26.0-34.0); Mean Corpuscular HGB Conc 30.3 g/dL (31.5-36.5); Mean Platelet Volume 9.7 fL (9.1-12.4); NEUTROPHILS ABSOLUTE AUTO 8.24 K/mm3 (1.96-9.15); NEUTROPHILS PERCENT AUTO 88 % (41-73); Platelet Count 273 K/mm3 (150-400); RDW Coefficient Variation 19.7 % (11.7-14.2); RDW Standard Deviation 57.5 fL (35.1-46.3); Red Blood Cell Count 4.54 M/mm3 (4.30-5.90); White Blood Cell Count 9.34 K/mm3 (4.00-11.30)
[2018-12-08 04:11] LABS: Mean Corpuscular Volume 81 fL (80-100)
[2018-12-08 04:23] LABS: Anion Gap 9 mmol/L (6-16); Blood Urea Nitrogen 24 mg/dL (8-24); Bun/Creatinine Ratio 36.1 (12.0-20.0); CO2, Blood 32 mmol/L (21-32); Calcium, Blood 7.9 mg/dL (8.5-10.1); Chloride, Blood 98 mmol/L (98-108); Creatinine, Blood 0.66 mg/dL (0.60-1.20); Glomerular Filtration Rate >60 (60-); Glucose, Blood 161 mg/dL (70-99); Magnesium, Blood 1.9 mg/dL (1.6-2.4); Phosphorus, Blood 3.6 mg/dL (2.5-4.9); Potassium, Blood 3.3 mmol/L (3.5-5.5); Sodium, Blood 139 mmol/L (136-145)
[2018-12-08 05:03] LABS: PCO2 Arterial 53.6 mmHg (35-45); PO2 Arterial 114 mmHg (80-100); pH Blood Arterial 7.46 (7.35-7.45)
--- NOTE | 2018-12-08 05:44 | NUR ---
SBT/SEDATION VACATION PROPOFOL WEANED DOWN FROM 50MCG/KG TO 10MCG/KG PRIOR TO WEAN. PT ABLE TO OPEN EYES AND SQUEEZE HAND ON COMMAND. PT CALM AT FIRST, BUT THEN BECAME VERY AGITATED VERY QUICKLY AND STARTED HITTING HIS FISTS AGAINST THE SIDERAILS. PT MEDICATED WITH 50MCG OF FENTANYL. VENT SETTINGS CHANGED FROM AC 18 TO SPONTANEOUS WITH PRESSURE SUPPORT 5/5 WITH FIO2 50%; BUT SHORTLY INCREASED TO 7/5 D/T PT ONLY PULLING TV LESS THAN 200. AFTER PS INCREASED TO 7/5 PT PULLING ADEQUATE TV GREATER THAN 400. PT REMAINED CALM AND COOPERATIVE T/O SBT; FOLLOWING COMMANDS AND ABLE TO SHAKE HEAD YES/NO TO QUESTIONS. VS REMAINED STABLE WITH SBP REMAINING LESS THAN 180. GAG AND COUGH REFLEX INTACT.
--- NOTE | 2018-12-08 06:40 | NUR ---
END OF SHIFT SUMMARY PT HAS REMAINED INTUBATED AND SEDATED WITH PROPOFOL AT 50MCG/KG. ABLE TO TURN DOWN TO 10MCG/KG WITH 50MCG OF FENTANYL GIVEN DURING SBT; SEE NOTES. PT ABLE TO OPEN EYES, FOLLOW SIMPLE COMMANDS, AND SHAKE HEAD YES/NO TO QUESTIONS. HOWEVER, PT WOULD BECOME VERY AGITATED, HITTING HIS HANDS AGAINST THE SIDERAILS. BILATERAL SOFT WRIST RESTRAINTS REMAIN INTACT. PT MEDICATED FOR AGITATION PER ORDERS; HOWEVER, PT IS NO EASY TO TALK DOWN TO A CALM STATE ONCE AGITATION STARTS. MEDICATED WITH FENTANYL THREE TIMES AND ATIVAN TWICE THIS SHIFT PER ORDERS. VENT SETTINGS REMAIN AT AC 18; TV 400; PEEP 5; FIO2 50% WITH OXYGEN SATURATIONS MAINTAINING GREATER THAN 92%. LUNG SOUNDS REMAIN RHONCHUS T/O WITH PT HAVING OCCASIONAL COUGHING FITS WITH MINIMAL THICK, GAINES SPUTUM; LUNG SOUNDS TEND TO CLEAR AFTER SUCTIONING. PT HAS REMAINED NSR WITH BBB AND OCCASIONAL PVC'S AND PAC'S T/O NIGHT; HR 80-90'S. OG HOOKED TO LOW INTERMITTENT SUCTION WITH BRIGHT YELLOW OUPUT; MINIMAL ACCOUNTED FOR. PT APPEARS COMFORTABLE AT THIS TIME.
--- NOTE | 2018-12-08 08:00 | NUR ---
MALE PATIENT WITH ORAL ET TO VENT. TV 400. AC 18, FIO2 40 AND PEEP OF 5. DOES BREATHE ABOVE VENT RATE. LUNGS CLEAR. GRIMACES WHEN DISTURBED. PROPOFOL AT 50MICS/KG/MIN. NS AT 10ML/HOUR. GENERALIZED EDEMA BUT MOST IN HIS LEGS MORIAH. LEFT LEG HAS A KERLIX DRESSING AROUNG THE GALF. HEEL PROTECTORS ON MORIAH. ALSO MORIAH WRIST RESTRAINTS ON TO PREVENT PATIENT SELF EXTUBATION.
--- NOTE | 2018-12-08 13:14 | NUR ---
WOUND DRESSING ON LEFT LEG REMOVED FOR DR CIFUENTES. WOUND CLEANED WITH SPRAY SANDING LINE OPERATOR AND REDRESSED WITH KERLIX AND ABD. SPEC SENT TO LAB.
--- NOTE | 2018-12-08 13:21 | NUR ---
DR TORRES IN TO EXAMINE PATIENT. 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
[2018-12-09 03:23] LABS: Albumin, Blood 2.8 g/dL (3.4-5.0); Anion Gap 9 mmol/L (6-16); Blood Urea Nitrogen 24 mg/dL (8-24); CO2, Blood 33 mmol/L (21-32); Calcium, Blood 7.8 mg/dL (8.5-10.1); Chloride, Blood 98 mmol/L (98-108); Creatinine, Blood 0.65 mg/dL (0.60-1.20); Glomerular Filtration Rate >60 (60-); Glucose, Blood 153 mg/dL (70-99); Magnesium, Blood 2.2 mg/dL (1.6-2.4); Phosphorus, Blood 3.8 mg/dL (2.5-4.9); Potassium, Blood 3.4 mmol/L (3.5-5.5); Sodium, Blood 140 mmol/L (136-145)
--- NOTE | 2018-12-09 05:39 | NUR ---
WEAN ON HOLD DUE TO CODE ON ANOTHER PT REQUIRING STAFF. PRECEDEX PAUSED AT THIS TIME. WILL PASS ONTO DAY SHIFT.
--- NOTE | 2018-12-09 05:48 | NUR ---
DRESSING TO LLE CHANGED AT 0400
--- NOTE | 2018-12-09 07:30 | NUR ---
ASSUMED CARE OF PATIENT; SEE ASSESSMENT CHARTING FOR DETAILS. PATIENT SEDATED ON PROPOFOL GTT AT 40MCG/KG/MIN.; RIKERS SCALE 3. VENT. SETTINGS: A/C 18, TV, 400, PEEP 5 AND FIO2 40%; BIOX STAYING IN MID TO HIGH 90'S. NS INFUSING AT TKO; USED FOR IVPB'S. SUCTIONED ETT FOR LARGE AMOUNTS OF GAINES SECRETIONS. MONITOR REMAINS NSR WITH BBBP; BP MODERATELY ELEVATED. HIDALGO DRAINING LARGE AMOUNTS OF LT. YELLOW URINE; TO RECEIVE DIURETIC TX. AROUND 0900. TUBE FEEDING INFUSING WITH VITAL HIGH PROTEIN AT 25ML/HR; < 10CC RESIDUAL. SWELLING TO ALL EXTREM.; ELEVATED ON PILLOWS. LUNGS CLEAR AFTER SUCTIONING OTHERWISE COARSE ANTERIORLY.
--- NOTE | 2018-12-09 07:50 | NUR ---
T/C FROM LAB RE: BLOOD CULTURE WITH GRAM + COCCI IN CLUSTERS. RN T/C TO DR. MAYEN; HE WILL ARRIVE AT HOSPITAL, BEFORE TO [facility], AND ADDRESS.
--- NOTE | 2018-12-09 08:55 | NUR ---
DR. TORRES CAME BY; SHE STATES SHE ALREADY STARTED TREATING INFECTION WITH ZYVOXX; SHE WILL BE GIVING DR. MAYEN UPDATE.
--- NOTE | 2018-12-09 10:26 | NUR ---
PROPOFOL GTT INCREASED TO 50MCG/KG/MIN., PATIENT RESTLESS; PULLING ON RESTRAINTS AND HIGH PRESSURING VENT.
--- NOTE | 2018-12-09 12:00 | NUR ---
NO ACUTE CHANGES; CBG 148; NO COVERAGE INDICATED. REPOSITIONED AND ORAL CARE DONE. EMPTIED 1000CC, MORE, OF URINE FROM CATHETER BAG.
--- NOTE | 2018-12-09 16:00 | NUR ---
RESTLESS AND TRYING TO PULL OFF RESTRAINTS; HIGH PRESSURING VENT. RN SUCTIONED PATIENT FOR COPIOUS AMOUNTS OF GAINES TO WHITE THICK MUCUS. COARSE UPPER AIRWAYS; BIOX. STABLE WITH FIO2 AT 35%. PROPOFOL DRIP AT 50MCG/KG/MIN; REPOSITIONED PATIENT AND HE SETTLED DOWN.
--- NOTE | 2018-12-09 16:45 | NUR ---
INCREASING AGITATION; FENTANYL 50MCG/IV TO PROMOTE COMFORT.
--- NOTE | 2018-12-09 18:00 | NUR ---
SUMMARY: MEDICATED WITH 2MG IV AND INCREASED PROPOFOL TO 60MCG/KG/MIN. CALMED AND THEN RN REDUCED PROPOFOL BACK TO 50MCG/KG/MIN D/T SBP DOWN TO 107. GOOD URINE OUTPUT (2500); TOLERATING TUBE FEEDINGS WELL. NO VENT. CHANGES T/O DAY. REMAINS IN DROPLET ISOLATION D/T MRSA SPUTUM/WOUNDS AND NOW + BLOOD CULTURES (GRAM + COCCI IN CLUSTERS). WILL REPORT TO ONCOMING RN.
--- NOTE | 2018-12-10 04:10 | NUR ---
PROPOFOL TITRATED DOWN OVER PAST HOUR AND IS NOW OFF FOR WEAN AT 0430. PRECEDEX ON HAND IF NEEDED.
[2018-12-10 04:15] LABS: BASOPHILS ABSOLUTE AUTO 0.01 K/mm3 (0.00-0.23); BASOPHILS PERCENT AUTO 0 % (0-2); EOSINOPHILS PERCENT AUTO 0 % (0-6); Hematocrit 39.1 % (37.0-53.0); Hemoglobin 11.6 g/dL (13.5-17.5); IMMATURE GRAN ABSOLUTE AUTO 0.16 K/mm3 (0.00-0.10); IMMATURE GRAN PERCENT AUTO 1 % (0-1); LYMPHOCYTES ABSOLUTE AUTO 0.68 K/mm3 (0.84-5.20); LYMPHOCYTES PERCENT AUTO 5 % (21-46); MONOCYTES ABSOLUTE AUTO 0.93 K/mm3 (0.16-1.47); MONOCYTES PERCENT AUTO 7 % (4-13); Mean Corpuscular HGB 24.2 pg (26.0-34.0); Mean Corpuscular HGB Conc 29.7 g/dL (31.5-36.5); Mean Corpuscular Volume 82 fL (80-100); Mean Platelet Volume 9.7 fL (9.1-12.4); NEUTROPHILS ABSOLUTE AUTO 10.81 K/mm3 (1.96-9.15); NEUTROPHILS PERCENT AUTO 86 % (41-73); NRBC ABSOLUTE 0.02 K/mm3 (0.00-0.02); NRBC Auto 0.2 /100 WBC (0.0-0.2); Platelet Count 273 K/mm3 (150-400); RDW Standard Deviation 59.2 fL (35.1-46.3); Red Blood Cell Count 4.79 M/mm3 (4.30-5.90); White Blood Cell Count 12.59 K/mm3 (4.00-11.30)
--- NOTE | 2018-12-10 04:20 | NUR ---
PROPOFOL OFF SINCE 399. PT AWAKE AND FOLLOWING COMMANDS. PT BECAME SLIGHTLY AGITATED AND PULLING AT RESTRAINTS. PRECEDEX STARTED AT 0.3 mcg/kg/hr WITH PT BECOMING CALM AND COOPERATIVE. PRECEDEX REDUCED TO 0.2 mcg/kg/hr. PT REMAINING AWAKE CALM AND COOPERATIVE. WILL TITRATE DOWN IF ABLE. VSS.
--- NOTE | 2018-12-10 04:24 | NUR ---
DR. MAYEN: START OF SHIFT. IV IN RIGHT HAND LEAKING AND HARDENING NOTED AROUND R AC IV. PT WAS AWAKENING. IV STARTS FAILED WITH PT HAVING NO ACCESS AVAILABLE. DR. MAYEN NOTIFIED AND WAS AT BEDSIDE AT APPROX 2215. CENTRAL LINE PLACED AND VERIFIED VIA XRAY.
[2018-12-10 04:29] LABS: Albumin, Blood 2.8 g/dL (3.4-5.0); Anion Gap 7 mmol/L (6-16); Blood Urea Nitrogen 28 mg/dL (8-24); Bun/Creatinine Ratio 44.7 (12.0-20.0); CO2, Blood 34 mmol/L (21-32); Calcium, Blood 7.9 mg/dL (8.5-10.1); Chloride, Blood 98 mmol/L (98-108); Creatinine, Blood 0.63 mg/dL (0.60-1.20); Glomerular Filtration Rate >60 (60-); Glucose, Blood 144 mg/dL (70-99); Magnesium, Blood 2.5 mg/dL (1.6-2.4); Phosphorus, Blood 3.9 mg/dL (2.5-4.9); Potassium, Blood 3.5 mmol/L (3.5-5.5); Sodium, Blood 139 mmol/L (136-145)
--- NOTE | 2018-12-10 05:02 | NUR ---
PT TOLERATED WEAN WELL. PT REMAINED ON NO PROPOFOL AND ON 2mcg/kg/hr PRECEDEX. PT MOTIONED TO WRITE AND WAS GIVEN PEN AND AND CLIP BOARD. PT ASKED WHERE HE WAS AT AND WHEN. PT BEGAN TO TEAR UP WHEN TOLD. PT CONSOLED ABOUT CURRENT STAY AND PLAN. PT INFORMED OF RETURN OF SEDATION FOR REST. PT RESTING AND WAS RETURN TO ASSIST/VENT AND PROPOFOL TITRATED UP TO 50mcg/kg/hr. WILL CONTINUE TO MONITOR.
--- NOTE | 2018-12-10 08:10 | NUR ---
CARE ASSUMED CARE AND REPORT ASSUMED FROM SANTOS EDGAR. PT INTUBATED AND SEDATED. VENT AC 18, 400, PEEP 5, FIO2 30%. PROPOFOL GTT INFUSING AT 50 MCG/KG/MIN. ETT SECURED. TOLERATING TF THROUGH OGT AT GOAL RATE WITH 0 ML RESIDUAL. BUE RESTRAINED. SEDATION VACATION LASTING APPROX 20 MINUTES; PT WAS ANXIOUS WHEN AWAKE, PULLING AT RESTRAINTS AND BITING ETT. UNABLE TO DIRECT AND FOLLOW COMMANDS. HOB ELEVATED. HIDALGO CATH SECURED AND PATENT. WILL CONTINUE TO MONITOR.
--- NOTE | 2018-12-10 12:08 | NUR ---
REASSESSMENT NO SIGNIFICANT CHANGES SINCE PRIOR ASSESSMENT. PT REMAINS INTUBATED ON VENTILATOR AC 18, TV 400, PEEP 5, FIO2 30%. PROPOFOL GTT INFUSING AT 50 MCG/KG/MIN. TOLERATING TF AT GOAL RATE. BUE REMAIN RESTRAINED. HOB ELEVATED. NSR, HR 90S. WILL CONTINUE TO MONITOR.
--- NOTE | 2018-12-10 15:28 | NUR ---
No family at time of visit. Mr. Pack is ventilated and non-responsive. Prayer provided at bedside, and i will remain available to pt and loved ones.
--- NOTE | 2018-12-10 16:45 | NUR ---
REASSESSMENT PT REMAINS INTUBATED ON VENT AC 18, 400, 5, 30%. SEDATED WTIH PROPOFOL GTT AT 45 MCG/KG/MIN. TOLERATING TF AT GOAL RATE WITH 0 ML RESIDUALS. HOB ELEVATED AND PT TURNED. URINE SLIGHT GREEN COLOR; WILL TITRATE PROPOFOL GTT DOWN TOLERATED. AFEBRILE. VSS. NSR WITH BBB, HR 80S. BP STABLE. BUE RESTRAINED. WILL CONTINUE TO MONITOR.
--- NOTE | 2018-12-10 17:52 | NUR ---
SHIFT SUMMARY PT REMAINED INTUBATED AND SEDATED ENTIRE SHIFT EXCEPT DURING SEDATION VACATION. VSS ENTIRE SHIFT. MAP GREATER THAN 65 AND HR 80-90S IN REGULAR RHYTHM WITH BBB. NO S/S PAIN. DURING SEDATION VACATION, PT BECAME ANXIOUS AND PULLED ON RESTRAINTS AND ATTEMPTED BITING ETT; WAS UNABLE TO CONSOLE AND UNABLE TO FOLLOW COMMANDS DUE TO AGITATION. AFEBRILE ENTIRE SHIFT. NO BM. DRESSINGS CHANGED ON LLE IN AFTERNOON; BLOODY OOZE DURING CLEANSING. TOLERATED TF ENTIRE SHIFT WITH ZERO RESIDUALS. NO FAMILY CONTACT OR VISITORS DURING SHIFT. HOB ELEVATED AND PT TURNED Q2H. PT HAD MODERATE AMOUNTS OF THICK, WHITE SECRETIONS. 1200 ML OUTPUT FROM HIDALGO CATHETER. HAS REMAINED IN BUE. WILL GIVE BEDSIDE, HANDOFF REPORT TO TYRESE EDGAR.
--- NOTE | 2018-12-10 19:15 | NUR ---
ASSUMED CARE ASSUMED CARE OF PATIENT. REMAINS INTUBATED- AC 18, TV 400, PEEP 5, FIO2 30%. SEDATED WITH PROPOFOL @ 45MCG/KG/MIN. OPENS EYES TO NOXIOUS STIMULI. MOVES ALL EXTREMITITES WEAKLY. NOT FOLLOWING COMMANDS. KRISTYN, 2MM. BILATERAL SOFT WRIST RESTRAINTS IN PLACE TO PREVENT SELF-EXTUBATION. MONITOR SHOWS NSR WITH BBB AND OCCASIONAL, PVCs- RATE 80s. BP STABLE. OG WITH VITAL HIGH PROTEIN AT GOAL RATE OF 25CC/HR. HIDALGO PATENT AND DRAINING CLEAR YELLOW URINE. LSC CENTRAL LINE NOTED- DRSG C/D/I. HEEL PROTECTORS IN PLACE. SEE PHOTOS FOR WOUND DOCUMENTATION. REMAINS IN CONTACT/DROPLET ISOLATION FOR MRSA IN WOUND AND IN SPUTUM. SEE SHIFT ASSESSMENT FOR FULL ASSESSMENT.
[2018-12-11 04:19] LABS: BASOPHILS ABSOLUTE AUTO 0.02 K/mm3 (0.00-0.23); BASOPHILS PERCENT AUTO 0 % (0-2); EOSINOPHILS PERCENT AUTO 0 % (0-6); Hematocrit 39.2 % (37.0-53.0); Hemoglobin 11.7 g/dL (13.5-17.5); IMMATURE GRAN ABSOLUTE AUTO 0.28 K/mm3 (0.00-0.10); IMMATURE GRAN PERCENT AUTO 3 % (0-1); LYMPHOCYTES ABSOLUTE AUTO 1.04 K/mm3 (0.84-5.20); LYMPHOCYTES PERCENT AUTO 9 % (21-46); MONOCYTES ABSOLUTE AUTO 0.92 K/mm3 (0.16-1.47); MONOCYTES PERCENT AUTO 8 % (4-13); Mean Corpuscular HGB 23.9 pg (26.0-34.0); Mean Corpuscular HGB Conc 29.8 g/dL (31.5-36.5); Mean Corpuscular Volume 80 fL (80-100); Mean Platelet Volume 9.7 fL (9.1-12.4); NEUTROPHILS ABSOLUTE AUTO 8.89 K/mm3 (1.96-9.15); NEUTROPHILS PERCENT AUTO 80 % (41-73); NRBC ABSOLUTE 0.04 K/mm3 (0.00-0.02); NRBC Auto 0.4 /100 WBC (0.0-0.2); Platelet Count 251 K/mm3 (150-400); RDW Coefficient Variation 20.6 % (11.7-14.2); RDW Standard Deviation 58.7 fL (35.1-46.3); White Blood Cell Count 11.15 K/mm3 (4.00-11.30)
[2018-12-11 04:33] LABS: Albumin, Blood 2.8 g/dL (3.4-5.0); Anion Gap 6 mmol/L (6-16); Blood Urea Nitrogen 28 mg/dL (8-24); Bun/Creatinine Ratio 44.4 (12.0-20.0); CO2, Blood 33 mmol/L (21-32); Calcium, Blood 7.8 mg/dL (8.5-10.1); Chloride, Blood 100 mmol/L (98-108); Creatinine, Blood 0.63 mg/dL (0.60-1.20); Glomerular Filtration Rate >60 (60-); Glucose, Blood 142 mg/dL (70-99); Phosphorus, Blood 3.6 mg/dL (2.5-4.9); Potassium, Blood 4.1 mmol/L (3.5-5.5); Sodium, Blood 139 mmol/L (136-145)
--- NOTE | 2018-12-11 04:55 | NUR ---
SEDATION/SBT PRECEDEX STARTED @ 0.5MCG/KG/HR FOR WEANING TRIAL. PROPOFOL TITRATED DOWN AT THIS TIME. WILL TITRATE PROPOFOL TO OFF. RT AT BEDSIDE.
--- NOTE | 2018-12-11 06:33 | NUR ---
SHIFT SUMMARY NO ACUTE CHANGES DURING NOC. VENT SETTINGS UNCHANGED. REMAINS SEDATED WITH PROPOFOL @ 45MCG/KG/MIN. SBT DONE WITH 0.2-0.5MCG/KG/HR OF PRECEDEX. PT AWAKE AND FOLLOWING SIMPLE COMMANDS DURING WEANING TRIAL. SLIGHTLY AGITATED DURING WEAN, BUT CALMED DOWN WITH REASSURANCE/INSTRUCTION. BILATERAL SOFT WRIST RESTRAINTS REMAIN IN PLACE- PT DOES REACH FOR ETT WHEN AWAKE AND RESTRAINTS ARE LOOSENED/OFF. MEDICATED WITH ATIVAN 2MG IV X 1 DURING SHIFT FOR INCREASED AGITATION. VSS DURING NOC. MONITOR SHOWS NSR WITH BBB AND OCCASIONAL PVCs, RATE 70-90s. AFEBRILE. OG WITH VITAL HIGH PROTEIN @ GOAL RATE OF 25CC/HR. OG RESIDUALS <10CC. HIDALGO PATENT AND DRAINING TO GRAVITY. REMAINS IN DROPLET/CONTACT ISOLATION. WILL REPORT TO DAY SHIFT RN WHEN AVAILABLE.
--- NOTE | 2018-12-11 08:15 | NUR ---
INITIAL ASSESSMENT PATIENT INTUBATED AND SEDATED. PATIENT UNRESPONSIVE, + GAG AND COUGH REFLEXES NOTED. PROPOFOL DECREASED FROM 45 TO 35 MCG/ KG/ MINUTE. CNVI OF ZERO. PATIENT AFEBRILE. PATIENT SATTING OVER 92% ON AC 18, TV 400, PEEP 5, AND 30% FIO2. LUNGS CLEAR IN UPPER LOBES AND DIMINISHED IN LOWER LOBES. SHALLOW BREATHS NOTED. PATIENT HAS OCCASIONAL, PRODUCTIVE COUGH. MODERATE AMOUNT OF THICK, GAINES, BLOOD TINGED SPUTUM BEING SUCTIONED FROM ETT. PATIENT IN NSR WITH BBB, HR 70S TO 80S. BP STABLE. TRACE EDEMA NOTED TO BUES, 1+ EDEMA NOTED TO BLES. PULSES STRONG. ABDOMEN MODERATELY DISTENDED, SOFT, NONTENDER, WITH HYPOACTIVE BS. PATIENT IS TOLERATING VHP TF AT GOAL RATE OF 25 MLS/ HOUR WITH 30 ML WATER FLUSH Q4H WELL. RESIDUAL OF ZERO THIS AM. HIDALGO DRAINING YELLOW/ GREEN COLORED URINE. PATIENT HAS SCATTERED BRUISES. BUTTOCKS REDDENED. LLL ULCER NOTED- DRESSING C/D/I. BLES DRY/ SCALY/ DISCOLORED. SCAB TO L THIGH. PROPOFOL INFUSING AT 35 MCG/ KG/ MINUTE, NS TKO. BED LOW, CALL LIGHT IN REACH. WILL CONTINUE TO MONITOR PATIENT FREQUENTLY THROUGHOUT SHIFT.
--- NOTE | 2018-12-11 09:00 | NUR ---
PROPOFOL PLACED ON STANDBY AT 0840. PATIENT NOW PLACED ON PS 5/5, 30% FIO2. PATIENT IS FOLLOWING SOME SIMPLE COMMANDS. WILL CONTINUE TO MONITOR.
--- NOTE | 2018-12-11 12:15 | NUR ---
PATIENT LYING QUIETLY IN BED. NO SIGNS OF PAIN. PATIENT CALM, SLEEPING. PATIENT AGITATED EARLIER AND GIVEN PRN ATIVAN. PATIENT ON PRECEDEX AT 0.4 MCG/ KG/ HOUR. PROP HAS BEEN ON SB FOR WEAN AND SEDATION VACATION. PATIENT WEAK BUT MOVES ALL EXTREMITIES. PATIENT SATTING OVER 92% ON PRESSURE SUPPORT OF 5/5, 30% FIO2. PATIENT IN SR WITH BBB AND OCCASIONAL PACS. HR 70S TO 80S. BP STABLE. BS OF 124- COVERAGE NOT NEEDED. TF REMAINS INFUSING AT GOAL. RESIDUAL OF 80 ML OBTAINED AND REINSTILLED. NO OTHER ACUTE CHANGES TO NOTE ON AT THIS TIME. BED LOW, CALL LIGHT IN REACH. WILL CONTINUE TO MONITOR PATIENT FREQUENTLY THROUGHOUT SHIFT.
--- NOTE | 2018-12-11 14:10 | NUR ---
PATIENT EXTUBATED WITH NO PROBLEMS BY RT. PATIENT SATTING 90% AND GREATER ON RA. OG PULLED WHEN EXTUBATED. PATIENT NPO AT THIS TIME AND WILL HAVE SWALLOW EVAL IN MORNING. RESTRAINTS DC'D. WILL CONTINUE TO MONITOR.
--- NOTE | 2018-12-11 15:45 | NUR ---
PATIENT RESTING QUIETLY IN BED. PATIENT ORIENTED TO SELF AND FOLLOWING DIRECTIONS. PATIENT CALM AND COOPERATIVE. PATIENT AFEBRILE. PATIENT HAS NO COMPLAINTS OF PAIN. SPEECH GARBLED AND DIFFICULT TO UNDERSTAND AT TIMES. PATIENT SATTING 90% AND GREATER ON 2 L NC. PATIENT HAS OCCASIONAL, NONPRODUCTIVE COUGH. PATIENT IN SR WITH BBB. HR 60S TO 70S, BP STABLE. PATIENT HAD LARGE, LOOSE, BROWN BM EARLIER. HIDALGO REMAINS DRAINING ADEQUATE AMOUNTS OF YELLOW/ GREEN COLORED URINE. PRECEDEX REMAINS INFUSING AT 0.4 MCG/ KG/ HOUR. NO OTHER ACUTE CHANGES TO NOTE ON AT THIS TIME. WILL CONTINUE TO MONITOR.
--- NOTE | 2018-12-11 16:11 | NUR ---
PATIENT BECAME VERY AGITATED, TRYING TO CRAWL OUT OF BED. PRECEDEX INCREASED TO 0.6 MCG/ KG/ HOUR. DR. MAYEN ORDERED SCHEDULED ATIVAN. 1 MG GIVEN AND PATIENT IS NOW RESTING QUIETLY IN BED. WILL CONTINUE TO MONITOR.
--- NOTE | 2018-12-11 16:38 | NUR ---
PATIENT BECAME VERY AGITATED AGAIN, NOT FOLLOWING COMMANDS AND TRYING TO CRAWL OUT OF BED. PATIENT GIVEN PRN 1 MG IV ATIVAN AND PLACED IN [place] VEST. PATIENT NOW SLEEPING. PATIENT FALL RISK. WILL CONTINUE TO MONITOR.
--- NOTE | 2018-12-11 19:10 | NUR ---
SHIFT SUMMARY PATIENT EXTUBATED THIS SHIFT. PATIENT ORIENTED TO SELF AND FOLLOWING SIMPLE COMMANDS AT SOME TIMES. PATIENT HAS BEEN VERY AGITATED THIS AFTERNOON. ATIVAN HAS BEEN GIVEN, WELL ZYPREXA. PATIENT PUT INTO KATARZYNA RESTRAINT HAS BEEN AGITATED, CONFUSED, TRYING TO CRAWL OUT OF BED AND IS A FALL RISK. PATIENT GIVEN PRN FENTANYL OT THIS SHIFT FOR PAIN. PATIENT HAS REMAINED AFEBRILE. PATIENT ABLE TO MOVE ALL EXTREMITIES. PATIENT HAS REMAINED SATTING WELL ON 1- 2 L NC SINCE EXTUBATION. PATIENT HAS OCCASIONAL, NONPRODUCTIVE COUGH. PATIENT HAS REMAINED IN SR WITH BBB AND OCCASIONAL PACS. HR MOSTLY 60S TO 80S. BP HAS REMAINED STABLE. PATIENT HAD 3 LARGE, LOOSE, BROWN BMS THIS SHIFT. OG REMOVED AND TF STOPPED WHEN EXTUBATED. PATIENT WILL REMAIN NPO AND HAVE SWALLOW EVAL IN THE MORNING. HIDALGO HAS DRAINED ADEQUATE AMOUNT OF YELLOW/ GREEN URINE. NO CHANGE IN SKIN. PRECEDEX INFUSING AT 1.2 MCG/ KG/ HOUR AND, PER TIARRA, CAN BE INCREASED UP TO 1.4 MCG/ KG/ HOUR. NS TKO. BED LOW, CALL LIGHT IN REACH. REPORT GIVEN TO ASSUMING SHORT GOODS DRIER NURSE.
--- NOTE | 2018-12-12 00:28 | NUR ---
PT SEDATION: PT SEDATIOIN MEDICATION REDUCTION. PT REMAINING SUFFICIENTLY SEDATED WITH LESS SEDATION. PRECEDEX TITRATED DOWN AND CURRENTLY AT 0.7mcg/kg/hr. 0000 SCHEDULED ATIVAN NOT GIVEN. PT VSS, CANDIE 1mm, 1L N/C SATS 95-97%. PT WITH OCCASIONAL EXTREMITY MOVEMENT. OTHERWISE PT CALM AND APPEARS COMFORTABLE.
--- NOTE | 2018-12-12 02:49 | NUR ---
SEDATION VACATION: PRECEDEX TITRATED DOWN TO 0.2mcg/kg/hr. PT BEGAN MUMBLING. PRECEDEX PAUSED. PT FOLLOWED DIRECTIONS AND KNEW PERSON AND PLACE BUT REPEATEDLY STATING, "PULL ME OFF THE BED" CURSING IN BETWEEN. PT NOT TRYING TO CONVERSE AND GREW AGITATED REPEATING, "PULL ME OFF THE BED". PRECEDEX RETURNED TO 0.3mcg/kg/hr. PT CONTINUING TO MUMBLE BUT IS NOT PULLING AND TRYING TO GET OUT OF BED. VSS. WILL CONTINUE TO MONITOR.
[2018-12-12 04:04] LABS: BASOPHILS ABSOLUTE AUTO 0.01 K/mm3 (0.00-0.23); BASOPHILS PERCENT AUTO 0 % (0-2); EOSINOPHILS ABSOLUTE AUTO 0.09 K/mm3 (0.00-0.68); EOSINOPHILS PERCENT AUTO 1 % (0-6); IMMATURE GRAN ABSOLUTE AUTO 0.15 K/mm3 (0.00-0.10); IMMATURE GRAN PERCENT AUTO 2 % (0-1); LYMPHOCYTES ABSOLUTE AUTO 2.12 K/mm3 (0.84-5.20); LYMPHOCYTES PERCENT AUTO 21 % (21-46); MONOCYTES ABSOLUTE AUTO 0.91 K/mm3 (0.16-1.47); MONOCYTES PERCENT AUTO 9 % (4-13); Mean Corpuscular HGB 24.1 pg (26.0-34.0); Mean Corpuscular HGB Conc 29.3 g/dL (31.5-36.5); Mean Corpuscular Volume 82 fL (80-100); Mean Platelet Volume 9.9 fL (9.1-12.4); NEUTROPHILS PERCENT AUTO 68 % (41-73); Platelet Count 237 K/mm3 (150-400); RDW Coefficient Variation 20.5 % (11.7-14.2); RDW Standard Deviation 59.7 fL (35.1-46.3); Red Blood Cell Count 4.98 M/mm3 (4.30-5.90); White Blood Cell Count 10.18 K/mm3 (4.00-11.30)
[2018-12-12 04:21] LABS: Albumin, Blood 2.8 g/dL (3.4-5.0); Anion Gap 5 mmol/L (6-16); Blood Urea Nitrogen 27 mg/dL (8-24); Bun/Creatinine Ratio 41.6 (12.0-20.0); CO2, Blood 34 mmol/L (21-32); Calcium, Blood 7.9 mg/dL (8.5-10.1); Chloride, Blood 105 mmol/L (98-108); Creatinine, Blood 0.65 mg/dL (0.60-1.20); Glomerular Filtration Rate >60 (60-); Glucose, Blood 97 mg/dL (70-99); Phosphorus, Blood 3.2 mg/dL (2.5-4.9); Potassium, Blood 3.6 mmol/L (3.5-5.5); Sodium, Blood 144 mmol/L (136-145)
--- NOTE | 2018-12-12 04:46 | NUR ---
PRECEDEX PAUSED: PRECEDEX TITRATED DOWN TO 0.1mcg/KG/hr AND IS NOW PAUSED. PT MUMBLING WORDS, "TAKE THIS BITCH OFF" TUGGING AT KATARZYNA VEST. PT NOT OPENING EYES SPONTANEOUSLY. PT NOT REDIRECTIONAL AT THIS TIME AND CONITNUES TO FALL ASLEEP. VSS. WILL KEEP PRECEDEX OFF MONITORING PT FOR AGIATION AND INTERACT WITH PT PT AWAKENS.
--- NOTE | 2018-12-12 06:12 | NUR ---
PT REMAINS WITH EYES CLOSED OFF PRECEDEX SINCE 429. PT OCCASIONALLY YELLING OUT BUT NOT INTERACTING WITH RN AT BEDSIDE. VSS. KATARZYNA IN PLACE. WILL CONTINUE TO MONITOR.
--- NOTE | 2018-12-12 06:20 | NUR ---
PT YELLING OUT. DID USE CALL LIGHT BUT ONLY YELLS, "LET ME OUTA HERE". PT BANGING CALL LIGHT ON BED AND NOT FOLLOWING DIRECTIONS. PT ONLY CONTINUED TO YELL OUT WHEN RN TRYING TO CONSOLE AND REDIRECT PT. PT BECOMING MORE AGITATED THIS RN TRIED EXPLAINING THE NEED FOR COOPERATION AND GOALS FOR DISCHARGE. PT ONLY YELLED REPEATING, "LET ME OUT" AND CURSING BANGING CALL LIGHT ON BED. RESTARTED PRECIDEX FOR PT AGITATION AND ACTING OUT. VSS. WILL CONTINUE TO MONITOR.
--- NOTE | 2018-12-12 07:15 | NUR ---
ASSUMED CARE: PT RESTING IN BED AT THIS TIME. NC IN PLACE, VSS. KATARZYNA VEST ON, PRECEDEX AT 0.4 MCG/KG/MIN. NO ACUTE NEEDS OR CONCERNS AT THIS TIME.
--- NOTE | 2018-12-12 10:28 | NUR ---
DISCUSSED PT'S CURRENT STATUS WITH DIETITIAN. SHE RECOMMENDS WE CONTINUE TRYING TO WEAN OFF PRECEDEX AND ATTEMPT SWALLOW STUDY AND ADDRESS DIET TOMORROW. PT REMAINS OF 0.4MCG/KG/MIN PRECEDEX AND BECOMES VERY AGITATED AND COMBATIVE WHEN TITRATED DOWN. WILL CONTINUE TO ATTEMPT AND MONITOR
--- NOTE | 2018-12-12 18:03 | NUR ---
SHIFT SUMMARY: PT HAS REMAINED ON PRECEDEX MAJORITY OF THE DAY WITH EXCEPTION OF ABOUT 15 MINUTES. ATTEMPTED TO TITRATE DOWN AND HAD TO RESTART BASED ON PT'S AGITATION. REMAINS IN KATARZYNA VEST. NPO DUE TO SOMNOLENCE. PLAN FOR SWALLOW EVAL WHEN PT AWAKENS MORE. HOPE IS TO EITHER START ORAL INTAKE OR NUTRITION TOMORROW DEPENDING ON PT COOPERATION AND SEDATION. AWAITING IV FLUIDS WITH D5 FOR BLOOD SUGARS. NO FURTHER NEEDS OR CONCERNS AT THIS TIME.
--- NOTE | 2018-12-13 07:30 | NUR ---
ASSUMED CARE OF PATIENT; SEE ASSESSMENT CHARTING FOR DETAILS. PATIENT SLEEPING; COARSE BREATH SOUNDS T/O; ATTEMPTED USING YANKAUER SX CATHETER TO GET MUCUS FROM MOUTH AND BACK OF THROAT; SMALL AMOUNT OF WHITE TO GAINES COLORED MUCUS BUT PATIENT REMAINS VERY RASPY SOUNDING. OXYGEN AT 2L/MIN VIA NC; BIOX LOW TO MID 90'S. HIDALGO TO GRAVITY AND DRAINING MOD. AMOUNTS OF MED. TO SHERYL COLORED URINE. PRECEDEX GTT INFUSING AT 0.6MCG/KG/MIN. RIKERS SCALE ABOUT 3; ROUSES TO LOUD VERBAL OR TACTILE STIMULATION; ATTEMPTS TO PULL WRISTS OUT OF RESTRAINTS; WILL MUMBLE OR SHOUT OUT CURSE WORDS; BACK TO SLEEP WHEN NOT DISTURBED. DIFFICULT TO ASSESS MENTAL STATUS. MAINT. IVF OF D51/2NS INFUSING AT 75ML/HR. SCD IN PLACE TO R FOOT; OFF OF L FOOT D/T STASIS ULCERS; DRESSINGS TO L CALF/DRY AND INTACT.
--- NOTE | 2018-12-13 08:15 | NUR ---
PRECEDEX REDUCED TO 0.4MCG/KG/MIN; ROUSES BUT QUICKLY BACK TO SLEEP.
--- NOTE | 2018-12-13 09:30 | NUR ---
PRECEDEX GTT REDUCED TO 0.2MCG/KG/MIN; PATIENT ALMOST SOMNOLENT.
--- NOTE | 2018-12-13 09:45 | NUR ---
DR. MAYEN HERE; ADJUSTING ZYPREXA DOSING AND GETTING RID OF ROUTINE ATIVAN; WANTS PRECEDEX GTT TITRATED OFF ( TOLERATED). NOTE: RN CRUSHED PATIENTS MEDS (HELD MIRALAX) AND DISSOLVED IN WATER; GIVEN TO PATIENT WITH A 10CC SYRINGE AFTER HOB UP TO 90 DEGREES AND MORE ALERT. SWALLOWING INCREASED MOIST COUGH AND LARGE AMOUNT OF PHLEGM COUGHED UP BY PATIENT; RN AND RT AT BEDSIDE AND USED YANKAUER SX TO HELP REMOVE SECRETIONS. RN HAD TO USED GLOVED FINGER AND REMOVE LARGE, THICK (LIKE GLUE) GLOB OF MUCUS; PATIENTS' BREATHING IMPROVED. 02 PLACED IN MOUTH D/T ORAL BREATHING.
--- NOTE | 2018-12-13 11:45 | NUR ---
PRECEDEX GTT REDUCED TO 0.1MCG/KG/MIN; PATIENT REMAINS VERY SLEEPY AND DIFFICULT TO KEEP ALERT.
--- NOTE | 2018-12-13 16:15 | NUR ---
PRECEDEX GTT PLACED IN STANDBY MODE; RN REPOSITIONED PATIENT AND PATIENT BECAME; LOUD/YELLING AND CUSSING AND TRYING TO GET HANDS OUT OF RESTRAINTS; AFTER SETTLED PATIENT FELL BACK TO SLEEP.
--- NOTE | 2018-12-13 17:30 | NUR ---
HOB UPRIGHT; PATIENT ENCOURAGED TO AWAKE FOR MEAL; PATIENT STATES HE IS HUNGRY. PUREED AND HONEY THICK FLUIDS, ETC GIVEN; ZYPREXA CRUSHED AND GIVEN WITH PUREED FRUIT; PATIENT NEEDING REMINDERS TO BEND HEAD FORWARD WITH SWALLOWING; NO INCIDENT OF CHOKING BUT REQUIRES FEEDING AND SUPERVISION WITH MEALS; SWALLOW EVAL TO BE DONE SPEECH TX. TOMORROW; ATTEMPTED TODAY BUT PATIENT TOO SOMNOLENT. OFF PRECEDEX GTT AND AROUSES MORE READILY. REQUIRES BILAT. WRIST RESTRAINTS D/T AGITATED TIMES WHEN MORE ALERT AND ATTEMPT TO GET OUT OF RESTRAINTS/PULL LINES ETC; KATARZYNA VEST ALSO IN PLACE FALL PREVENTION; D/T PATIENT UNPREDICTABLE. CONT. WITH MOIST COUGH BUT PATIENT MANAGING SECRETIONS EASIER; LESS CHEST RHONCHI.
--- NOTE | 2018-12-13 21:05 | NUR ---
PT WAS AGITATED YELLING OUT. ASKED PT WHAT WAS BOTHERING HIM AND HE STATES "HURT ALL OVER". GAVE FENTANYL AND PT RESPONDED WELL. OFF PRECEDEX FOR NOW. PT ASKS SAME QUESTIONS REPEATEDLY. WANTING TO LEAVE. KATARZYNA VEST AND SOFT WRIST RESTRAINTS ON DUE TO IMPULSIVENESS, INCREASED FALL RISK, AND RISK OF PULLING VITAL LINES. INCREASED O2 TO 2L AFTER PAIN MEDS DUE TO DESATING TO 88%. NO SIGN OF DISTRESS.
--- NOTE | 2018-12-13 23:01 | NUR ---
PT STATES HE NEED TO HAVE BM. ATTEMPTED BEDPAN BUT PT BECOMES AGITATED, SWINGING AT STAFF, AND HITTING THE BEDRAILS WHEN HANDS ARE UNRESTRAINED. TRIED TO REORIENT AND REDIRECT BUT NEITHER WORKED.
[2018-12-14 03:49] LABS: BASOPHILS ABSOLUTE AUTO 0.01 K/mm3 (0.00-0.23); BASOPHILS PERCENT AUTO 0 % (0-2); EOSINOPHILS ABSOLUTE AUTO 0.33 K/mm3 (0.00-0.68); EOSINOPHILS PERCENT AUTO 4 % (0-6); Hematocrit 40.6 % (37.0-53.0); Hemoglobin 11.7 g/dL (13.5-17.5); IMMATURE GRAN ABSOLUTE AUTO 0.11 K/mm3 (0.00-0.10); IMMATURE GRAN PERCENT AUTO 1 % (0-1); LYMPHOCYTES ABSOLUTE AUTO 1.45 K/mm3 (0.84-5.20); LYMPHOCYTES PERCENT AUTO 16 % (21-46); MONOCYTES ABSOLUTE AUTO 0.92 K/mm3 (0.16-1.47); MONOCYTES PERCENT AUTO 10 % (4-13); Mean Corpuscular HGB 24.5 pg (26.0-34.0); Mean Corpuscular HGB Conc 28.8 g/dL (31.5-36.5); Mean Platelet Volume 9.4 fL (9.1-12.4); NEUTROPHILS ABSOLUTE AUTO 6.43 K/mm3 (1.96-9.15); NEUTROPHILS PERCENT AUTO 70 % (41-73); Platelet Count 223 K/mm3 (150-400); RDW Coefficient Variation 19.7 % (11.7-14.2); RDW Standard Deviation 60.4 fL (35.1-46.3); Red Blood Cell Count 4.78 M/mm3 (4.30-5.90); White Blood Cell Count 9.25 K/mm3 (4.00-11.30)
[2018-12-14 03:50] LABS: Mean Corpuscular Volume 85 fL (80-100)
[2018-12-14 04:07] LABS: Albumin, Blood 2.5 g/dL (3.4-5.0); Anion Gap 3 mmol/L (6-16); Blood Urea Nitrogen 15 mg/dL (8-24); Bun/Creatinine Ratio 26.5 (12.0-20.0); CO2, Blood 33 mmol/L (21-32); Chloride, Blood 106 mmol/L (98-108); Creatinine, Blood 0.57 mg/dL (0.60-1.20); Glomerular Filtration Rate >60 (60-); Glucose, Blood 116 mg/dL (70-99); Potassium, Blood 4.5 mmol/L (3.5-5.5); Sodium, Blood 142 mmol/L (136-145)
--- NOTE | 2018-12-14 05:57 | NUR ---
SUMMARY PT WAS OFF PRECEDEX AT BEGINING OF SHIFT BUT WAS RESTARTED AFTER HE WAS NOT REDIRECTABLE, NOT FOLLOWING COMMANDS, YELLING OUT, HITTING BEDRAIL WITH CALL LIGHT AND SWINGING AT STAFF. PRECEDEX TITRATED DOWN TO 0.2 NOW. NO SIGN OF DISTRESS NOW.
--- NOTE | 2018-12-14 07:30 | NUR ---
ASSUMED CARE OF PATIENT; SEE ASSESSMENT CHARTING FOR DETAILS. LUNGS COARSE T/O; MOIST COUGH WITH SOME PRODUCTION. IN DEPTH ORAL CARE DONE BY RN D/T MOUTH VERY DRY AND MUCUS SOMEWHAT STICKY. PATIENT MORE ALERT AND APPEARS TO BE FOLLOWING SOME COMMANDS. C/O BEING HUNGRY; RN WILL MIX CRUSHED AM MEDS IN APPLESAUCE TO ALLOW LESS CHANCE FOR ASPIRATION. SPEECH TX. TO EVAL. THIS AM; UNCLEAR AT WHAT TIME. OXYGEN AT 2L/MIN VIA NC. BIOX MID TO HIGH 90'S. HIDALGO TO GRAVITY AND DRAINING MOD. AMOUNTS OF LT. SHERYL URINE. LE'S VERY DRY; NO DRESSINGS INDICATED AT THIS TIME (NO OPENED SKIN); ALL EXTREM. ELEVATED ON PILLOWS TO REDUCE CHANCE OF SWELLING. D5 1/2 NS INFUSING AT 75ML/HR. PRECEDEX GTT INFUSING AT 0.O2 MCG/KG/MIN. HAS KATARZYNA VEST AND BILAT. WRIST (SOFT) RESTRAINTS; WILL TRY AND TITRATE OFF PRECEDEX.
--- NOTE | 2018-12-14 09:00 | NUR ---
SPEECH THERAPIST HERE TO NEYMAR. PATIENT; RN HAD JUST SETTLED PATIENT AFTER GIVING HIM HIS AM MEDS. IN APPLESAUCE AND THEN SOME THICKENED WATER GIVEN TO INCREASE FLUIDS AND PREVENT CHOKING. PATIENT SLEEPY, AGAIN; RN AND THERAPIST ENCOURAGED PATIENT TO WAKE UP WITH LOUD VOICES, ETC. PATIENT REPOSITIONED BACK TO UPRIGHT POSITION; SOME PUDDING GIVEN BY THERAPIST AFTER TESTING PATIENTS GAG, SWALLOW AND COUGH REFLEXES. PATIENT EATING WITH EYES CLOSED; WILL OPEN IF REQUESTED BUT THEN SHUTS EYES; NO PROBLEMS WITH EATING SMOOTH/THICKENED FOODS. THERAPIST WANTS PATIENT ONLY TO RECEIVE CRUSHED PO MEDS IN A FEW BITES OF APPLESAUCE OR PUDDING; UNLESS PATIENT MUCH MORE ALERT; REQUIRES BEING FED AND MONITORED CLOSELY WITH HOB UPRIGHT.
--- NOTE | 2018-12-14 12:00 | NUR ---
WRIST RESTRAINTS REMOVED AND PATIENT REMAINS WITH VEST RESTRAINT. MORE ALERT AND WANTING TO NOT BE RESTRAINED; STATES HE WAS IN [place] [employer] AND A POW AND HATES BEING TIED. RN'S X2 RELEASED WRIST RESTRAINTS AND REINFORCED NEED TO NOT PULL ON LINES ETC; V/U.
--- NOTE | 2018-12-14 13:00 | NUR ---
PHYSICAL THERAPIST HERE; RN ASSISTED WITH GETTING PATIENT TO DANGLE/STAND ETC (SEE THERAPY NOTES). VEST REMOVED FOR ACTIVITY AND LEFT OFF; PATIENT COOPERATIVE.
--- NOTE | 2018-12-14 18:00 | NUR ---
SUMMARY: RESTLESS; REQUIRING ROUTINE PO SEDATION MEDS AND RN GAVE DOSE OF FENTANYL, EARLIER, TO HELP CALM PATIENT AND MAKE HIM MORE COMFORTABLE; STATES HE HAS NEUROPATHY IN HIS LE'S. LUNGS COARSE BUT IMPROVE AFTER COUGHING AND ORAL SUCTIONING; PATIENT HOLDING YANKAUER AND ABLE TO SUCTION SELF EFFECTIVELY; ALSO ABLE TO USE CALL LIGHT FOR RN AND TV CONTROLS; LIKES TO WATER MOVIES. BECOMES INCREASINGLY AGITATED AND THEN WILL CALM; RN FED PATIENT MULTIPLE PUDDINGS AND THICKENED WATER; C/O HUNGER AND WANTING SOMETHING MORE SOLID; SPEECH THERAPIST TO RE-EVAL.ON SUNDAY. PRECEDEX DRIP REMAINS OFF BUT MAY NEED TO RESTART THIS EVENING.
--- NOTE | 2018-12-14 18:30 | NUR ---
HALDOL GIVEN IV PER REQUEST OF DR. MAYEN; ORDERED PRN. PATIENT ALSO RECEIVING 25MG,PO, OF LIBRIUM TID WILL ZYPREXA 10MG PO Q 6HOURS. WILL REPORT TO ONCOMING RN AND MAY NEED TO RESTART PRECEDEX DRIP AND POSSIBLY RE-APPLY VEST.
--- NOTE | 2018-12-14 19:41 | NUR ---
PT WAS UP IN RECLINER CHAIR WHEN THIS RN ENTERED ROOM. PT STANDING UP ON HIS OWN AND UNSTEADY GAIT. STRETCHING CENTRAL LINE IV ACROSS THE ROOM. WILL NOT FOLLOW COMMANDS. YELLING AND CALLING STAFF NAMES. GOT PT TO BED AND WENT TO GET PAIN MEDS AND PT HAD ROLLED ON TO HIS STOMACH IN BED WITH CENTRAL LINE ONCE AGAIN PULLED UNDERNEATH OF HIM. PRECEDEX RESTARTED AND RESTRAINTS RESTARTED TO KEEP CENTRAL LINE FROM GETTING PULLED OUT. PT IS NOT REDIRECTABLE AND WILL NOT FOLLOW SIMPLE COMMANDS FOR HIS OWN SAFETY.
[2018-12-15 04:07] LABS: BASOPHILS ABSOLUTE AUTO 0.01 K/mm3 (0.00-0.23); BASOPHILS PERCENT AUTO 0 % (0-2); EOSINOPHILS ABSOLUTE AUTO 0.38 K/mm3 (0.00-0.68); EOSINOPHILS PERCENT AUTO 4 % (0-6); Hematocrit 39.7 % (37.0-53.0); Hemoglobin 11.5 g/dL (13.5-17.5); IMMATURE GRAN ABSOLUTE AUTO 0.09 K/mm3 (0.00-0.10); IMMATURE GRAN PERCENT AUTO 1 % (0-1); LYMPHOCYTES ABSOLUTE AUTO 1.54 K/mm3 (0.84-5.20); LYMPHOCYTES PERCENT AUTO 16 % (21-46); MONOCYTES ABSOLUTE AUTO 0.98 K/mm3 (0.16-1.47); MONOCYTES PERCENT AUTO 10 % (4-13); Mean Corpuscular HGB 24.3 pg (26.0-34.0); Mean Corpuscular Volume 84 fL (80-100); Mean Platelet Volume 9.7 fL (9.1-12.4); NEUTROPHILS ABSOLUTE AUTO 6.82 K/mm3 (1.96-9.15); NEUTROPHILS PERCENT AUTO 69 % (41-73); Platelet Count 229 K/mm3 (150-400); RDW Coefficient Variation 19.6 % (11.7-14.2); RDW Standard Deviation 58.5 fL (35.1-46.3); Red Blood Cell Count 4.73 M/mm3 (4.30-5.90); White Blood Cell Count 9.82 K/mm3 (4.00-11.30)
[2018-12-15 04:22] LABS: Albumin, Blood 2.5 g/dL (3.4-5.0); Anion Gap 4 mmol/L (6-16); Blood Urea Nitrogen 13 mg/dL (8-24); Bun/Creatinine Ratio 21.7 (12.0-20.0); CO2, Blood 33 mmol/L (21-32); Calcium, Blood 8.2 mg/dL (8.5-10.1); Chloride, Blood 105 mmol/L (98-108); Glomerular Filtration Rate >60 (60-); Glucose, Blood 113 mg/dL (70-99); Phosphorus, Blood 2.8 mg/dL (2.5-4.9); Sodium, Blood 142 mmol/L (136-145)
--- NOTE | 2018-12-15 06:39 | NUR ---
SUMMARY PT WAS PLACED BACK ON PRECEDEX DURING THE NIGHT AND IN SOFT WRIST RESTRAINTS DUE TO PULLING AT LINES, HITTING AND TRYING TO BITE STAFF, AND AT ONE POINT HE PULLED THE IV POLE WITH PUMPS OVER ON TOP OF HIMSELF IN THE BED. TITRATED PRECEDEX OFF THIS AM IN ANTICIPATION OF SPEECH EVAL TO BE DONE THIS AM. PT WILL ROUSE AND START YELLING OUT. NO OTHER CHANGES.
--- NOTE | 2018-12-15 07:30 | NUR ---
ASSUMED CARE OF PATIENT; SEE ASSESSMENT CHARTING FOR DETAILS. PATIENT SLEEPY; AROUSES TO VERBAL STIMULI; PRECEDEX DRIP REMAINS OFF. D5 1/2NS INFUSING AT 75ML/HR. LE'S VERY DRY AND POOR COLOR (BLUISH/PURPLE) D/T POOR CIRCULATION; NO OPENED STASIS ULCERS NOTED AT THIS TIME. LUNGS COARSE T/O; PRODUCTIVE COUGH OF THICK YELLOW/WHITE MUCUS; SPITS IT IN KLEENEX AND SOMETIMES SWALLOWS IT. VSS AND MONITOR REMAINS NSR; AFEBRILE. HIDALGO DRAINING MOD TO LARGE AMOUNTS OF LT SHERYL URINE. SMEAR OF STOOL; BUTTOCKS CLEANED UP AND PATIENT REPOSITIONED. BILAT. SOFT WRIST RESTRAINTS IN PLACE TO PREVENT PULLING OF CENTRAL LINE AND OTHER LINES. PATIENT IMPULSIVE AND ON ORAL SEDATIVE MEDS.; UNPREDICTABLE.
--- NOTE | 2018-12-15 10:00 | NUR ---
DR. MAYEN HERE TO EVAL. PATIENT; WANTS TO STOP ZYPREXA AND ADD GEODEN FOR MANAGEMENT OF IMPULSIVE AND AGGITATED BEHAVIOR. LIBRIUM 25MG PO Q 8 HRS TO CONTINUE.
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
--- NOTE | 2018-12-15 16:30 | NUR ---
BECOMING INCREASINGLY AGITATED. RN'S X 3 CLEANED PATIENTS BUTTOCKS (SMALL AMOUNT OF STOOL) WELL HIS FINGERS WITH STOOL FROM PATIENT SCRATCHING BUTTOCKS, ETC. USED CEILING LIFT TO TRANSFER PATIENT; PRECEDEX RESTARTED )0.5MCG/KG/HR); PATIENT CALMING.
--- NOTE | 2018-12-15 18:00 | NUR ---
SUMMARY: PRECEDEX DOWN TO 0.3 MCG/KG/HR. RECEIVED IM INJECTIONS OF GEODON TWICE TODAY D/T PATIENT MANAGING TO KICK OVER GARBAGE CAN ETC. HELPED CALM PATIENT. VSS AND MONITOR REMAINS NSR; OVERALL STATUS UNCHANGED; BEHAVIOR REMAINS LABILE; MANAGED BEST WITH PRECEDEX DRIP.
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
[2018-12-16 04:10] LABS: BASOPHILS ABSOLUTE AUTO 0.01 K/mm3 (0.00-0.23); BASOPHILS PERCENT AUTO 0 % (0-2); EOSINOPHILS ABSOLUTE AUTO 0.37 K/mm3 (0.00-0.68); EOSINOPHILS PERCENT AUTO 4 % (0-6); Hemoglobin 11.3 g/dL (13.5-17.5); IMMATURE GRAN ABSOLUTE AUTO 0.07 K/mm3 (0.00-0.10); IMMATURE GRAN PERCENT AUTO 1 % (0-1); LYMPHOCYTES ABSOLUTE AUTO 0.97 K/mm3 (0.84-5.20); LYMPHOCYTES PERCENT AUTO 10 % (21-46); MONOCYTES ABSOLUTE AUTO 0.94 K/mm3 (0.16-1.47); MONOCYTES PERCENT AUTO 9 % (4-13); Mean Corpuscular HGB 24.7 pg (26.0-34.0); Mean Corpuscular HGB Conc 29.7 g/dL (31.5-36.5); Mean Corpuscular Volume 83 fL (80-100); Mean Platelet Volume 9.5 fL (9.1-12.4); NEUTROPHILS ABSOLUTE AUTO 7.79 K/mm3 (1.96-9.15); NEUTROPHILS PERCENT AUTO 77 % (41-73); Platelet Count 213 K/mm3 (150-400); RDW Coefficient Variation 19.9 % (11.7-14.2); RDW Standard Deviation 58.4 fL (35.1-46.3); Red Blood Cell Count 4.57 M/mm3 (4.30-5.90); White Blood Cell Count 10.15 K/mm3 (4.00-11.30)
[2018-12-16 04:26] LABS: Albumin, Blood 2.4 g/dL (3.4-5.0); Anion Gap 4 mmol/L (6-16); Blood Urea Nitrogen 9 mg/dL (8-24); CO2, Blood 33 mmol/L (21-32); Calcium, Blood 7.9 mg/dL (8.5-10.1); Chloride, Blood 107 mmol/L (98-108); Glomerular Filtration Rate >60 (60-); Glucose, Blood 118 mg/dL (70-99); Phosphorus, Blood 3.6 mg/dL (2.5-4.9); Potassium, Blood 4.4 mmol/L (3.5-5.5); Sodium, Blood 144 mmol/L (136-145)
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
--- NOTE | 2018-12-16 07:15 | NUR ---
RECEIVED REPORT FROM TALA TIDWELL, AND ASSUMED CARE OF PT.
--- NOTE | 2018-12-16 10:39 | NUR ---
NURSING SUMMARY SLEEPING, WAKES EASILY TO VOICE, UPON WAKING PT MUMBLING LOUDLY, CUSSING, AND MILDLY COMBATIVE, ATTEMPTS TO YANK HARD ON RESTRAINTS. ATTEMPTS TO ENCOURAGE PT TO REFRAIN FROM BEING COMBATIVE UNSUCCESSFUL. ATTEMPTED TO REORIENT PT TO LOCATION/SITUATION/DATE. PT RESPONDS WITH LOUDER VOICE AND CUSSING. FALLS BACK TO SLEEP QUICKLY AND THEN IS QUIET. PRECECEX INFUSING AT 0.5 MCG/KG/HR. SB - SR ON MONITOR, HR 58-69, WITH A BBB AND PAC'S. LUNGS COARSE THROUGHOUT, RESPIRATORY THERAPY AND BREATHING TREATMENTS Q4H, CHANGED TO PRN. ATTEMPTED TO SUCTION PT BUT THRASHES HEAD AND YELLS NO. SOFT BILATERAL WRIST RESTRAINTS IN PLACE. SKIN LEATHERY ON LOWER EXTREMITIES. REPOSITIONING EVERY TWO HOURS. LEFT SUBCLAVIAN CENTRAL LINE IN PLACE, DRESSING CDI.
--- NOTE | 2018-12-16 11:00 | NUR ---
DR. BAILON CAME BY AND ADVISED THAT HE WILL COME SEE PT LATER. DR. LILLY CALLED CONSULT TO DR. BAILON. I PLACED NEW CONSULT ORDER.
--- NOTE | 2018-12-16 13:20 | NUR ---
NURSING SUMMARY PRECEDEX OFF FOR 1.5 HOURS IN PREPARATION FOR DR. BAILON'S CONSULT AND SPEECH THERAPY. WORKED WITH PT FOR 30 MINUTES TALKING AND DOING EXTREMITY STRETCHES, REPOSITIONING IN BED, AND EATING APPLESAUCE. PT MORE ALERT AND ORIENTED NOW, FOLLOWING COMMANDS, AND WAS ABLE TO PROMISE NOT TO HIT, YELL, OR CUS AT STAFF. CALLED SPEECH THERAPY TO SEE IF SHE COULD COME BACK FOR EVALUATION AND SHE IS NOT ABLE TO. AWAITING DR. BAILON. WILL CONTINUE TO WORK WITH PT THROGHOUT THE SHIFT.
--- NOTE | 2018-12-16 13:48 | NUR ---
NURSING SUMMARY DR. BAILON AT BEDSIDE FOR EVALUATION.
--- NOTE | 2018-12-16 20:00 | NUR ---
CARE ASSUMED REPORT RECEIVED, CARE ASSUMED AT 1900. UPON ASSUMING CARE, PT SITTING UP IN RECLINER. REQUESTING TO RETURN TO BED. PT PUT BACK INTO BED USING CEILING LIFT AND TOLERATED WELL. PT EXPRESSING NEEDS APPROPRIATELY, THOUGH EMOTIOLLY LABILE AND APPEARS TO HAVE FLIGHT OF IDEAS. SEE FULL ASSESSMENT. PT LEFT WITH CALL LIGHT IN REACH, BED IN LOWEST POSITION AND ALARM IN PLACE.
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
--- NOTE | 2018-12-17 06:00 | NUR ---
UPDATE - PSYCH SINCE ACHIEVING THERAPEUTIC PRECEDEX RATE, PT HAS SLEPT SOUNDLY, AROUSING FOR REASSESSMENTS. ATTEMPTED TO TITRATE PRECEDEX OFF FOR DAY SHIFT, PT AGAIN BECOMES AGITATED, HITTING AT SIDE RAILS, THREATENDING STAFF AND PULLING AT LINES. ATTEMPTED TO PROMOTE REST NON-THERAPEUTICALLY AND PT REPEATEDLY CALLS STAFF INTO ROOM WITH AGITATION/YELLING. UNABLE TO ARTICUALTE NEEDS. PRECEDEX GTT INCREASED SLIGHTLY FOR PATIENT SAFETY.
--- NOTE | 2018-12-17 07:22 | NUR ---
REPORT TO TALA COLLADO TO ASSUME CARE
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
--- NOTE | 2018-12-17 11:30 | NUR ---
Speech eval was done and diet set to thicken and puree by spoon. No real other significant changes. They got up for bed bath and was placed in chair. He is being a little clearer and able to hold better conversation. reduced his O2 use until off and his sats are in the low to mid 90% on RA.
--- NOTE | 2018-12-17 13:30 | NUR ---
He is back to bed and then chair again with PT and OT both have worked with him at different times and he tolerated well. VSS, O2 remains off and sats well. He ate all of lunch and tolerated well. Pull central line after starting two 18ga IV's in RFA, RAC, he tolerated well. No other significant changes.
--- NOTE | 2018-12-17 15:04 | NUR ---
Mr. Pack was talkative and sometimes tearful throughout conversation. He also seems a bit confused. He tends to be tangental, but is easily redirected--but not for long. He does not have friends or family and it is unclear to me if he has a place to live. He does not understand why he is here. I provided calm presence and theraputic listening. We prayed together at conclusion of visit. We had an easy rapport. I will remain available.
--- NOTE | 2018-12-17 15:30 | NUR ---
Patient is currently up in chair and will be transferred to [place] [id number]. Pukked polanco intact and he has urinal at bedside. Will call report soon. Patient has been on cell phone talking about discharge.
--- NOTE | 2018-12-17 17:02 | NUR ---
Patient was up without asking and had to be redirected to not get up without permission. VSS. He has been on the phone talking to people about finance. He remains on RA and sats low to mid 90%'s. No significant changes,.
--- NOTE | 2018-12-17 18:03 | NUR ---
PT TRANSFERED FROM ICU 11 VIA W/C- REPORT FROM [facility]- SET UP WITH CONTCT PRECAUTIONS. PT ALERT AND ORIENTED, IN GOOD SPIRITS AND JOVIAL. 2 PERSON SBA TO BED, SOME WEAKNESS, SLOW MOVING, POOR COORDINATION. ORIENTED TO ROOM SET UP AND SAFETY.
[2018-12-18 05:32] LABS: Hematocrit 41.1 % (37.0-53.0); Hemoglobin 12.2 g/dL (13.5-17.5); Mean Corpuscular HGB 24.4 pg (26.0-34.0); Mean Corpuscular HGB Conc 29.7 g/dL (31.5-36.5); Mean Corpuscular Volume 82 fL (80-100); Mean Platelet Volume 9.5 fL (9.1-12.4); Platelet Count 194 K/mm3 (150-400); RDW Coefficient Variation 20.4 % (11.7-14.2); RDW Standard Deviation 59.2 fL (35.1-46.3); White Blood Cell Count 10.64 K/mm3 (4.00-11.30)
[2018-12-18 05:53] LABS: Albumin, Blood 2.9 g/dL (3.4-5.0); Anion Gap 6 mmol/L (6-16); Blood Urea Nitrogen 10 mg/dL (8-24); Bun/Creatinine Ratio 16.2 (12.0-20.0); CO2, Blood 32 mmol/L (21-32); Calcium, Blood 8.5 mg/dL (8.5-10.1); Chloride, Blood 101 mmol/L (98-108); Creatinine, Blood 0.62 mg/dL (0.60-1.20); Glomerular Filtration Rate >60 (60-); Glucose, Blood 106 mg/dL (70-99); Phosphorus, Blood 3.9 mg/dL (2.5-4.9); Potassium, Blood 3.7 mmol/L (3.5-5.5); Sodium, Blood 139 mmol/L (136-145)
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
--- NOTE | 2018-12-19 04:32 | NUR ---
AT THE START OF SHIFT, PT WAS VERY AGITATED, INSISTING THAT HE WAS GOING TO LEAVE. WHEN NIGHT STAFF TRIED TO FIND OUT WHAT WAS WRONG, THE PT STATED "YOU KNOW WHAT'S WRONG". SECURITY WAS CALLED WHEN THE PT LEFT HIS ROOM, AND AT 1930 THE HOSPITALIST JESENIA JIMENEZ WAS CONSULTED TO WHETHER OR NOT THE PT SHOULD BE KEPT ON A HOLD. 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 THE PT WENT DOWN TO THE [place] WITH SECURITY, AND SAID THAT HE WOULD BE WILLING TO COME BACK TO HIS ROOM AFTER HE WENT TO THE VENDING MACHINES. SECURITY BROUGHT HIM BACK APPROXIMATELY 20 MINUTES LATER, AND THE PT WAS CALMER AND MORE COOPERATIVE AT THAT TIME. WILL CONTINUE TO MONITOR
--- NOTE | 2018-12-19 07:05 | NUR ---
SHIFT SUMMARY PT IS A 63 Y/O MALE, ADMITTED FOR HYPERCAPNIC RESPIRATORY FAILURE. HE IS A&O X 2-3, AND A 1PA IN THE ROOM. THE PT WAS VERY AGITATED AT THE BEGINNING OF THE SHIFT (SEE PREVIOUS NOTE). AT 2030, THE PT HAD A FALL FROM A CHAIR TO THE GROUND. THE PT DENIED ANY PAIN, NO ACUTE INJURIES NOTED, AND VITALS WERE STABLE. THE HOSPITALIST JESENIA JIMENEZ WAS NOTIFIED. THE PT DID REPORT SOME NECK PAIN THIS AM, FOR WHICH HE WAS GIVEN PRN TYLENOL. HE DENIED ANY ACUTE NAUSEA OR SOB. VITALS REMAINED STABLE. NO OTHER ACUTE CHANGES IN PT CONDITION NOTED. WILL CONTINUE TO MONITOR AND TREAT PER EMAR.
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
--- NOTE | 2018-12-19 18:07 | NUR ---
SUMMARY PT SITTING UP IN THE CHAIR AT THE BEDSIDE EATING HIS DINNER, PT'S MOOD HAS BEEN VERY LABILE T/O THE DAY, PT "FIRING" STAFF ONE MINUTE AND THEN CRYING TO THEM THE NEXT, PT HAS BEEN UP IN THE ROOM WITH MIN ASSIST, PT WITH FLIGHT OF IDEAS AND TALKING FREQUENTLY, PT WITH SEVERAL COMPLAINTS ABOUT MANY DIFFERENT THINGS, CARE MANAGEMENT HAS BEEN IN TO SEE THE PT, VSS, NO ACUTE CHANGES, WILL CONT TO MONITOR
--- NOTE | 2018-12-20 05:54 | NUR ---
SHIFT SUMMARY PT IS A 63 Y/O MALE, ADMITTED FOR HYPERCAPNIC RESPIRATORY FAILURE. HE IS A&O X 2, OCC FORGETFUL WITH A FLIGHT OF IDEAS AND SOME PARANOID AND POSSIBLY GRANDIOSE DELUSIONS. THE PT HAS BEEN MOSTLY COOPERATIVE WITH CARE DURING THE NIGHT, THOUGH HE REPEATEDLY STATED THAT HE BELIEVES STAFF "TOOK MY PAPERS" AND DOESN'T WANT TO TAKE MEDS THAT "MESS WITH MY MIND". THE PT SLEPT FOR APPROXIMATELY AN HOUR LAST NIGHT, AND HAS BEEN UP IN THE CHAIR OTHERWISE. HE COMPLAINED OF PAIN IN HIS BUTTOCKS AND GENITALS, FOR WHICH HE WAS MEDICATED WITH SCHEDULED VICODIN AT BEDTIME, AND PRN TYLENOL X 1. HE DENIED ANY ACUTE SOB OR NAUSEA. VITALS REMAINED STABLE. NO OTHER ACUTE CHANGES IN PT CONDITION NOTED. WILL CONTINUE TO MONITOR AND TREAT PER EMAR.
--- NOTE | 2018-12-20 09:33 | NUR ---
PT BEHAVIOUR PT VERBALLY ABUSIVE AND AGRESSIVE TOWARDS STAFF, REFUSED TO TAKE ANY MEDICATIONS AND REFUSED TO ALLOW ASSESSMENT
--- NOTE | 2018-12-20 17:12 | NUR ---
REFUSING CARE PT CONTINUES TO THREATEN STAFF AND REFUSE CARE, DOES NOT ANSWER ANY QUESTIONS DIRECTLY, PT IS DISCHARGED, REQUESTING DEFENSE ATTORNEY, CARE MANAGEMENT HAS BEEN NOTIFIED, THEY HAVE DECLINED TO COME SEE THE PT AGAIN THEY HAVE NOTHING MORE TO OFFER THE PT AND HE DOES NOT ANSWER ANY QUESTIONS THAT WOULD HELP HIM, PT CURRENTLY REFUSING TO LEAVE
[2018-12-20] MEDS ORDERED: ALBU2.5V5 NEB (17:51)
[2018-12-20] MEDS ORDERED: CEPACOL SORE T1 EACH MM (17:52)
[2018-12-20] MEDS ORDERED: LINE600 PO (17:52)
[2018-12-20] MEDS ORDERED: CLON.1 PO (17:52)
[2018-12-20] MEDS ORDERED: MIRALAX17 GM PO (17:53)
[2018-12-20] MEDS ORDERED: Pedi-Dri 100,0060 GM TOP (17:53)
[2018-12-20] MEDS ORDERED: SPIR25 PO (17:53)
[2018-12-20] MEDS ORDERED: BUDE10.22 INH (17:54)
[2018-12-20] MEDS ORDERED: TAMS.4ER PO (17:54)
--- NOTE | 2018-12-20 18:04 | NUR ---
SUMMARY PT HAS BEEN DISCHARGED, PT REFUSING ALL AND ANY CARE FROM THIS RN, PT THROWING THINGS AROUND THE ROOM, SECURITY CALLED FOR STANDBY, [facility], GIVEN TO THE PT BY ANOTHER STAFF MEMBER, PT'S BELONGINGS TAKEN OUT OF THE CUPBOARD AND GIVEN TO THE PT, PT CONTINUES TO YELL IN THE ROOM AND BE BELIGERENT
--- NOTE | 2018-12-20 18:34 | NUR ---
SUMMARY/DISCHARGE PT DISCHARGED, TAKEN OUT TO THE LOBBY IN A WHEELCHAIR WITH HIS BELONGINGS WITH SECURITY
== END 2018-12-20 17:12 | disposition home or self-care (01) | DRG 870 ==
LOC: ER 21:20 → ICUW 12-07 00:11 → MEDS 12-17 17:39
PROVIDERS: Emergency Medicine; Internal Medicine; Internal Medicine Critical Care Medicine; ADMIT Hospitalist
PROC: 0BH17EZ Insertion of Endotracheal Airway into Trachea, Via Natural or Artificial Opening (ICD-10-PCS; principal; 2018-12-07)
PROC: 5A1955Z Respiratory Ventilation, Greater than 96 Consecutive Hours (ICD-10-PCS; 2018-12-07)
PROC: 02HV33Z Insertion of Infusion Device into Superior Vena Cava, Percutaneous Approach (ICD-10-PCS; 2018-12-09)
DX: A41.50 Gram-negative sepsis, unspecified (principal); J96.02 Acute respiratory failure with hypercapnia; J96.01 Acute respiratory failure with hypoxia; G92 Toxic encephalopathy; I50.33 Acute on chronic diastolic (congestive) heart failure; J13 Pneumonia due to Streptococcus pneumoniae; J44.1 Chronic obstructive pulmonary disease with (acute) exacerbation; E66.2 Morbid (severe) obesity with alveolar hypoventilation; R65.20 Severe sepsis without septic shock; I11.0 Hypertensive heart disease with heart failure; E11.65 Type 2 diabetes mellitus with hyperglycemia; Z99.81 Dependence on supplemental oxygen; K21.9 Gastro-esophageal reflux disease without esophagitis; F43.10 Post-traumatic stress disorder, unspecified; E78.5 Hyperlipidemia, unspecified; E11.42 Type 2 diabetes mellitus with diabetic polyneuropathy; Z79.4 Long term (current) use of insulin; E87.6 Hypokalemia; F15.10 Other stimulant abuse, uncomplicated; F09 Unspecified mental disorder due to known physiological condition
CPT/HCPCS: 31500; 31720; 36415; 36556; 36600; 51702; 71045; 80048; 80053; 80069; 81001; 82803; 82947; 83735; 83880; 84100; 84443; 84484; 85025; 85027; 87040; 87070; 87077; 87147; 87186; 87205; 92526; 92610; 93005; 93010; 93308; 93321; 94002; 94003; 94640; 94660; 94762; 96374; 96375; 96376; 97110; 97163; 97166; 97530; 99285-25; C1751; C9113; J0330; J0456; J0696; J1100; J1630; J1650; J1940; J2020; J2060; J2250; J2920; J2930; J3010; J3480; J3486; J7030; J7040; J7042; J7050

== ENCOUNTER 2018-12-31 14:50 | Emergency (ER) | payer MEDICARE ==
[~2018-12-31] VITALS: Ht 129.5 cm; Wt 145.2 kg
[~2018-12-31 14:50] MED LIST changes: +ALBU2.5V5 NEB; +BUDE10.22 INH; +CEPACOL SORE T1 EACH MM; +CLON.1 PO; +LINE600 PO; +MIRALAX17 GM PO; +Pedi-Dri 100,0060 GM TOP; +SPIR25 PO
[2018-12-31 15:52] LABS: BASOPHILS ABSOLUTE AUTO 0.04 K/mm3 (0.00-0.23); BASOPHILS PERCENT AUTO 1 % (0-2); EOSINOPHILS ABSOLUTE AUTO 0.37 K/mm3 (0.00-0.68); EOSINOPHILS PERCENT AUTO 5 % (0-6); Hematocrit 35.8 % (37.0-53.0); Hemoglobin 10.7 g/dL (13.5-17.5); IMMATURE GRAN ABSOLUTE AUTO 0.03 K/mm3 (0.00-0.10); IMMATURE GRAN PERCENT AUTO 0 % (0-1); LYMPHOCYTES ABSOLUTE AUTO 1.65 K/mm3 (0.84-5.20); LYMPHOCYTES PERCENT AUTO 22 % (21-46); MONOCYTES PERCENT AUTO 9 % (4-13); Mean Corpuscular HGB Conc 29.9 g/dL (31.5-36.5); Mean Corpuscular Volume 84 fL (80-100); Mean Platelet Volume 9.8 fL (9.1-12.4); NEUTROPHILS ABSOLUTE AUTO 4.86 K/mm3 (1.96-9.15); NEUTROPHILS PERCENT AUTO 64 % (41-73); Platelet Count 300 K/mm3 (150-400); RDW Coefficient Variation 20.5 % (11.7-14.2); Red Blood Cell Count 4.28 M/mm3 (4.30-5.90); White Blood Cell Count 7.65 K/mm3 (4.00-11.30)
[2018-12-31 16:05] LABS: International Normalized Ratio 1.03; Prothrombin Time Results 10.9 Sec (9.7-11.5)
[2018-12-31 16:08] LABS: Alanine Aminotransfer (ALT/SGP 39 U/L (12-78); Albumin/Globulin Ratio 0.6 (0.8-1.8); Alk Phos 66 U/L (50-136); Anion Gap 2 mmol/L (6-16); Aspartate Aminotrans (AST/SGOT 27 U/L (12-37); Bilirubin, Total 0.4 mg/dL (0.1-1.0); Blood Urea Nitrogen 7 mg/dL (8-24); Bun/Creatinine Ratio 10.8 (12.0-20.0); CO2, Blood 33 mmol/L (21-32); Calcium, Blood 8.1 mg/dL (8.5-10.1); Chloride, Blood 105 mmol/L (98-108); Creatinine, Blood 0.65 mg/dL (0.60-1.20); Ethanol (Alcohol), Blood, Med <3 mg/dL; Globulin, Blood 4.8 g/dL (2.2-4.0); Glomerular Filtration Rate >60 (60-); Glucose, Blood 93 mg/dL (70-99); Potassium, Blood 3.3 mmol/L (3.5-5.5); Sodium, Blood 140 mmol/L (136-145); Total Protein, Blood 7.8 g/dL (6.4-8.2); Troponin I <0.015 ng/mL (0.000-0.040)
== END 2018-12-31 18:03 | disposition home or self-care (01) ==
LOC: ER 14:50
PROVIDERS: Emergency Medicine
DX: R40.4 Transient alteration of awareness (principal); I11.0 Hypertensive heart disease with heart failure; I50.9 Heart failure, unspecified; J44.9 Chronic obstructive pulmonary disease, unspecified; E11.9 Type 2 diabetes mellitus without complications; F43.10 Post-traumatic stress disorder, unspecified; K21.9 Gastro-esophageal reflux disease without esophagitis; Z88.6 Allergy status to analgesic agent; Z88.0 Allergy status to penicillin; Z88.1 Allergy status to other antibiotic agents; Z88.5 Allergy status to narcotic agent; Z79.899 Other long term (current) drug therapy
CPT/HCPCS: 36415; 70450; 71045; 80053; 83605; 83880; 84484; 85025; 85610; 99285-25; G0480

== ENCOUNTER 2019-01-06 13:13 | Inpatient (IN) | payer MEDICARE ==
[~2019-01-06] VITALS: Ht 154.9 cm; Wt 141.8 kg
[2019-01-06] MEDS ORDERED: ACET325 PO (13:24)
[2019-01-06] MEDS ORDERED: LO-DOSE ASPIRIN81 MG PO (13:24)
[2019-01-06] MEDS ORDERED: ASCO500 PO (13:24)
[2019-01-06] MEDS ORDERED: ATOR40TA PO (13:25)
[2019-01-06] MEDS ORDERED: Vitamin D2000 UNIT PO (13:26)
[2019-01-06] MEDS ORDERED: FOLI1 PO (13:27)
[2019-01-06] MEDS ORDERED: Ferrous Sulfat325 MG PO (13:27)
[2019-01-06] MEDS ORDERED: FURO40 PO (13:28)
[2019-01-06] MEDS ORDERED: INSULANPEN SC (13:29)
[2019-01-06] MEDS ORDERED: Isosorbide Mono30 MG PO (13:29)
[2019-01-06] MEDS ORDERED: Norco 5-325 Ta1 EACH PO (13:29)
[2019-01-06] MEDS ORDERED: Lisinopril2.5 MG PO (13:30)
[2019-01-06] MEDS ORDERED: POTA10T PO (13:31)
[2019-01-06] MEDS ORDERED: OMEPRAZOLE MAGN20 MG PO (13:31)
[2019-01-06] MEDS ORDERED: NITR.4SL SL (13:31)
[2019-01-06 13:47] LABS: PCO2 Arterial 66.8 mmHg (35-45); PO2 Arterial 60.7 mmHg (80-100); pH Blood Arterial 7.33 (7.35-7.45)
[2019-01-06 21:14] LABS: U Amphetamine Screen Not Detected; U Barbituate Screen Not Detected; U Benzodiazapine Screen Not Detected; U Buprenorphine Screen Not Detected; U Cannabinoids Screen Not Detected; U Cocaine Screen Not Detected; U Methadone Screen Not Detected; U Methamphetamine Screen DETECTED; U Opiates Screen DETECTED; U Oxycodone Screen Not Detected; U Phencyclidine Screen Not Detected; U Propoxyphene Screen Not Detected
[2019-01-07 04:28] LABS: BASOPHILS ABSOLUTE AUTO 0.02 K/mm3 (0.00-0.23); BASOPHILS PERCENT AUTO 0 % (0-2); EOSINOPHILS ABSOLUTE AUTO 0.09 K/mm3 (0.00-0.68); EOSINOPHILS PERCENT AUTO 1 % (0-6); Hemoglobin 9.7 g/dL (13.5-17.5); IMMATURE GRAN ABSOLUTE AUTO 0.02 K/mm3 (0.00-0.10); IMMATURE GRAN PERCENT AUTO 0 % (0-1); LYMPHOCYTES ABSOLUTE AUTO 1.11 K/mm3 (0.84-5.20); LYMPHOCYTES PERCENT AUTO 13 % (21-46); MONOCYTES ABSOLUTE AUTO 0.98 K/mm3 (0.16-1.47); MONOCYTES PERCENT AUTO 12 % (4-13); Mean Corpuscular HGB Conc 29.4 g/dL (31.5-36.5); Mean Corpuscular Volume 82 fL (80-100); Mean Platelet Volume 9.6 fL (9.1-12.4); NEUTROPHILS ABSOLUTE AUTO 6.23 K/mm3 (1.96-9.15); NEUTROPHILS PERCENT AUTO 74 % (41-73); Platelet Count 262 K/mm3 (150-400); RDW Coefficient Variation 20.3 % (11.7-14.2); RDW Standard Deviation 60.3 fL (35.1-46.3); Red Blood Cell Count 4.04 M/mm3 (4.30-5.90); White Blood Cell Count 8.45 K/mm3 (4.00-11.30)
[2019-01-07 04:50] LABS: Alanine Aminotransfer (ALT/SGP 34 U/L (12-78); Albumin, Blood 2.7 g/dL (3.4-5.0); Albumin/Globulin Ratio 0.6 (0.8-1.8); Alk Phos 61 U/L (50-136); Anion Gap 5 mmol/L (6-16); Aspartate Aminotrans (AST/SGOT 29 U/L (12-37); Bilirubin, Total 0.7 mg/dL (0.1-1.0); Blood Urea Nitrogen 6 mg/dL (8-24); Bun/Creatinine Ratio 10.6 (12.0-20.0); CO2, Blood 36 mmol/L (21-32); Calcium, Blood 8.1 mg/dL (8.5-10.1); Chloride, Blood 103 mmol/L (98-108); Creatinine, Blood 0.57 mg/dL (0.60-1.20); Globulin, Blood 4.5 g/dL (2.2-4.0); Glomerular Filtration Rate >60 (60-); Glucose, Blood 101 mg/dL (70-99); Magnesium, Blood 1.5 mg/dL (1.6-2.4); Potassium, Blood 2.9 mmol/L (3.5-5.5); Sodium, Blood 144 mmol/L (136-145); Total Protein, Blood 7.2 g/dL (6.4-8.2)
[2019-01-07 11:46] LABS: Source, Urine Catheter
[2019-01-07 11:53] LABS: Bilirubin, Urine Neg (Neg); Blood, Urine 4+ (Neg); Glucose Qualitative, Urine Neg (Neg); Ketones, Urine Neg (Neg); Leukocyte Esterase, Urine Neg (Neg); Nitrite, Urine Neg (Neg); Protein, Urine Neg (Neg); Urobilinogen, Urine NORM (Normal)
[2019-01-07 12:22] LABS: Appearance, Urine Clear (Clear); Color, Urine Yellow (P-Yellow)
[2019-01-07 12:24] LABS: White Blood Cells, Urine Not Seen /hpf (0-5)
[2019-01-07 12:25] LABS: Bacteria Few /hpf; Red Blood Cells, Urine 25-50 /hpf (0-2); Squamous Epithelial Cells Not Seen /hpf (Few)
[2019-01-08 04:12] LABS: BASOPHILS ABSOLUTE AUTO 0.03 K/mm3 (0.00-0.23); BASOPHILS PERCENT AUTO 0 % (0-2); EOSINOPHILS ABSOLUTE AUTO 0.23 K/mm3 (0.00-0.68); EOSINOPHILS PERCENT AUTO 3 % (0-6); Hematocrit 30.6 % (37.0-53.0); IMMATURE GRAN ABSOLUTE AUTO 0.04 K/mm3 (0.00-0.10); IMMATURE GRAN PERCENT AUTO 1 % (0-1); LYMPHOCYTES ABSOLUTE AUTO 1.33 K/mm3 (0.84-5.20); LYMPHOCYTES PERCENT AUTO 16 % (21-46); MONOCYTES ABSOLUTE AUTO 1.18 K/mm3 (0.16-1.47); MONOCYTES PERCENT AUTO 14 % (4-13); Mean Corpuscular HGB 24.3 pg (26.0-34.0); Mean Corpuscular HGB Conc 29.4 g/dL (31.5-36.5); Mean Corpuscular Volume 83 fL (80-100); Mean Platelet Volume 9.5 fL (9.1-12.4); NEUTROPHILS ABSOLUTE AUTO 5.44 K/mm3 (1.96-9.15); NEUTROPHILS PERCENT AUTO 66 % (41-73); Platelet Count 270 K/mm3 (150-400); RDW Coefficient Variation 20.6 % (11.7-14.2); RDW Standard Deviation 61.8 fL (35.1-46.3); White Blood Cell Count 8.25 K/mm3 (4.00-11.30)
[2019-01-08 04:39] LABS: Alanine Aminotransfer (ALT/SGP 34 U/L (12-78); Albumin, Blood 2.5 g/dL (3.4-5.0); Albumin/Globulin Ratio 0.6 (0.8-1.8); Alk Phos 52 U/L (50-136); Anion Gap 5 mmol/L (6-16); Aspartate Aminotrans (AST/SGOT 24 U/L (12-37); Bilirubin, Total 0.8 mg/dL (0.1-1.0); Blood Urea Nitrogen 10 mg/dL (8-24); Bun/Creatinine Ratio 12.7 (12.0-20.0); CO2, Blood 37 mmol/L (21-32); Calcium, Blood 7.5 mg/dL (8.5-10.1); Chloride, Blood 99 mmol/L (98-108); Creatinine, Blood 0.79 mg/dL (0.60-1.20); Globulin, Blood 4.1 g/dL (2.2-4.0); Glomerular Filtration Rate >60 (60-); Glucose, Blood 102 mg/dL (70-99); Magnesium, Blood 1.7 mg/dL (1.6-2.4); Potassium, Blood 2.9 mmol/L (3.5-5.5); Sodium, Blood 141 mmol/L (136-145); Total Protein, Blood 6.6 g/dL (6.4-8.2)
== END 2019-01-08 14:54 | DRG 291 ==
LOC: ER 13:13 → PCU 15:07
PROVIDERS: Emergency Medicine; ADMIT Internal Medicine
PROC: 5A09357 Assistance with Respiratory Ventilation, Less than 24 Consecutive Hours, Continuous Positive Airway Pressure (ICD-10-PCS; principal; 2019-01-06)
DX: I11.0 Hypertensive heart disease with heart failure (principal); J96.02 Acute respiratory failure with hypercapnia; E66.2 Morbid (severe) obesity with alveolar hypoventilation; Z68.42 Body mass index [BMI] 45.0-49.9, adult; L03.115 Cellulitis of right lower limb; L03.116 Cellulitis of left lower limb; Z87.891 Personal history of nicotine dependence; I50.43 Acute on chronic combined systolic (congestive) and diastolic (congestive) heart failure; F43.10 Post-traumatic stress disorder, unspecified; E11.42 Type 2 diabetes mellitus with diabetic polyneuropathy; J44.9 Chronic obstructive pulmonary disease, unspecified; Z79.82 Long term (current) use of aspirin; Z79.4 Long term (current) use of insulin; F15.10 Other stimulant abuse, uncomplicated; E87.6 Hypokalemia
CPT/HCPCS: 36415; 36600; 80053; 81001; 82803; 82947; 83735; 83880; 84484; 85025; 87070; 87077; 87081; 87186; 87205; 93005; 93010; 94660; 94762; 96374; 96375; 96376; 97162; 97530; 99285-25; J0360; J1650; J1940; J2020; J2060; J3475; J3480

== ENCOUNTER 2019-01-14 16:18 | Emergency (ER) | payer MEDICARE ==
[~2019-01-14] VITALS: Ht 154.9 cm; Wt 127.0 kg
[~2019-01-14 16:18] MED LIST changes: +ACET325 PO; +ATOR40TA PO; +Ferrous Sulfat325 MG PO; +INSULANPEN SC; +Isosorbide Mono30 MG PO; +LO-DOSE ASPIRIN81 MG PO; +Norco 5-325 Ta1 EACH PO; +OMEPRAZOLE MAGN20 MG PO; +POTA10T PO; +Vitamin D2000 UNIT PO
[2019-01-14 18:56] LABS: BASOPHILS ABSOLUTE AUTO 0.07 K/mm3 (0.00-0.23); BASOPHILS PERCENT AUTO 1 % (0-2); EOSINOPHILS ABSOLUTE AUTO 0.24 K/mm3 (0.00-0.68); EOSINOPHILS PERCENT AUTO 2 % (0-6); Hematocrit 35.2 % (37.0-53.0); Hemoglobin 10.4 g/dL (13.5-17.5); IMMATURE GRAN ABSOLUTE AUTO 0.12 K/mm3 (0.00-0.10); IMMATURE GRAN PERCENT AUTO 1 % (0-1); LYMPHOCYTES ABSOLUTE AUTO 1.96 K/mm3 (0.84-5.20); LYMPHOCYTES PERCENT AUTO 17 % (21-46); MONOCYTES ABSOLUTE AUTO 0.93 K/mm3 (0.16-1.47); MONOCYTES PERCENT AUTO 8 % (4-13); Mean Corpuscular HGB 24.6 pg (26.0-34.0); Mean Corpuscular HGB Conc 29.5 g/dL (31.5-36.5); Mean Corpuscular Volume 83 fL (80-100); Mean Platelet Volume 9.8 fL (9.1-12.4); NEUTROPHILS ABSOLUTE AUTO 8.11 K/mm3 (1.96-9.15); NEUTROPHILS PERCENT AUTO 71 % (41-73); Platelet Count 274 K/mm3 (150-400); RDW Coefficient Variation 20.8 % (11.7-14.2); RDW Standard Deviation 62.8 fL (35.1-46.3); Red Blood Cell Count 4.22 M/mm3 (4.30-5.90); White Blood Cell Count 11.43 K/mm3 (4.00-11.30)
[2019-01-14 19:19] LABS: Alanine Aminotransfer (ALT/SGP 40 U/L (12-78); Albumin, Blood 2.9 g/dL (3.4-5.0); Albumin/Globulin Ratio 0.6 (0.8-1.8); Alk Phos 64 U/L (50-136); Anion Gap 4 mmol/L (6-16); Aspartate Aminotrans (AST/SGOT 29 U/L (12-37); Bilirubin, Total 0.4 mg/dL (0.1-1.0); Blood Urea Nitrogen 27 mg/dL (8-24); Bun/Creatinine Ratio 17.9 (12.0-20.0); CO2, Blood 31 mmol/L (21-32); Chloride, Blood 100 mmol/L (98-108); Creatinine, Blood 1.51 mg/dL (0.60-1.20); Globulin, Blood 4.6 g/dL (2.2-4.0); Glomerular Filtration Rate 50 (60-); Glucose, Blood 97 mg/dL (70-99); Potassium, Blood 3.8 mmol/L (3.5-5.5); Sodium, Blood 135 mmol/L (136-145); Total Protein, Blood 7.5 g/dL (6.4-8.2); Troponin I <0.015 ng/mL (0.000-0.040)
[2019-01-14] MEDS ORDERED: Prednisone20 MG PO (19:48)
[2019-01-14] MEDS ORDERED: Vibramycin100 MG PO (19:48)
== END 2019-01-14 20:06 | disposition home or self-care (01) ==
LOC: ER 16:18
PROVIDERS: Physician Assistant
DX: J44.1 Chronic obstructive pulmonary disease with (acute) exacerbation (principal); I11.0 Hypertensive heart disease with heart failure; I50.9 Heart failure, unspecified; E11.40 Type 2 diabetes mellitus with diabetic neuropathy, unspecified; Z79.899 Other long term (current) drug therapy; Z79.82 Long term (current) use of aspirin
CPT/HCPCS: 36415; 71046; 80053; 83605; 83880; 84484; 85025; 94640; 99285-25

== ENCOUNTER 2019-05-14 14:33 | Inpatient (IN) | payer OTHER, MEDICARE ==
[~2019-05-14] VITALS: Ht 175.3 cm; Wt 133.5 kg
[~2019-05-14 14:33] MED LIST changes: -ATOR40TA PO; -DOCU100 PO; -Ferrous Sulfat325 MG PO; -LO-DOSE ASPIRIN81 MG PO; -OMEPRAZOLE MAGN20 MG PO; -POTA10T PO; +Prednisone20 MG PO; +Vibramycin100 MG PO; -Vitamin D2000 UNIT PO
[2019-05-14 15:06] LABS: BASOPHILS ABSOLUTE AUTO 0.04 K/mm3 (0.00-0.23); BASOPHILS PERCENT AUTO 0 % (0-2); EOSINOPHILS ABSOLUTE AUTO 0.11 K/mm3 (0.00-0.68); EOSINOPHILS PERCENT AUTO 1 % (0-6); Hematocrit 36.3 % (37.0-53.0); Hemoglobin 10.7 g/dL (13.5-17.5); IMMATURE GRAN ABSOLUTE AUTO 0.05 K/mm3 (0.00-0.10); IMMATURE GRAN PERCENT AUTO 1 % (0-1); LYMPHOCYTES ABSOLUTE AUTO 1.09 K/mm3 (0.84-5.20); LYMPHOCYTES PERCENT AUTO 10 % (21-46); MONOCYTES PERCENT AUTO 8 % (4-13); Mean Corpuscular HGB 23.7 pg (26.0-34.0); Mean Corpuscular HGB Conc 29.5 g/dL (31.5-36.5); Mean Corpuscular Volume 80 fL (80-100); Mean Platelet Volume 9.5 fL (9.1-12.4); NEUTROPHILS ABSOLUTE AUTO 8.64 K/mm3 (1.96-9.15); NEUTROPHILS PERCENT AUTO 80 % (41-73); Platelet Count 258 K/mm3 (150-400); RDW Standard Deviation 61.9 fL (35.1-46.3); Red Blood Cell Count 4.52 M/mm3 (4.30-5.90); White Blood Cell Count 10.73 K/mm3 (4.00-11.30)
[2019-05-14 15:11] LABS: Base Excess Venous 6.9 mmol/L; Bicarbonate Venous 29.4 mmol/L (24.0-30.0); PCO2 Venous 55.6 mmHg (38-42); PO2 Venous 89.8 mmHg (38-42); pH Blood Venous 7.37 (7.34-7.37)
[2019-05-14 15:20] LABS: Source, Urine Clean Catch
[2019-05-14 15:24] LABS: Bilirubin, Urine Neg (Neg); Blood, Urine 5+ (Neg); Glucose Qualitative, Urine Neg (Neg); Ketones, Urine Neg (Neg); Leukocyte Esterase, Urine Neg (Neg); Nitrite, Urine Neg (Neg); Protein, Urine 2+ (Neg); Specific Gravity, Urine 1.015 (1.003-1.022); Urobilinogen, Urine NORM (Normal)
[2019-05-14 15:32] LABS: Appearance, Urine Clear (Clear); Color, Urine Yellow (P-Yellow)
[2019-05-14 15:33] LABS: Hyaline Casts 0-2 /lpf (0-2)
[2019-05-14 15:34] LABS: Bacteria Few /hpf; Squamous Epithelial Cells Not Seen /hpf (Few)
[2019-05-14 15:36] LABS: U Amphetamine Screen DETECTED; U Barbituate Screen Not Detected; U Benzodiazapine Screen Not Detected; U Buprenorphine Screen Not Detected; U Cannabinoids Screen Not Detected; U Cocaine Screen Not Detected; U Methadone Screen Not Detected; U Methamphetamine Screen DETECTED; U Opiates Screen Not Detected; U Oxycodone Screen Not Detected; U Phencyclidine Screen Not Detected; U Propoxyphene Screen Not Detected
[2019-05-14 15:37] LABS: Alanine Aminotransfer (ALT/SGP 38 U/L (12-78); Albumin, Blood 2.9 g/dL (3.4-5.0); Albumin/Globulin Ratio 0.5 (0.8-1.8); Alk Phos 83 U/L (50-136); Anion Gap 4 mmol/L (6-16); Aspartate Aminotrans (AST/SGOT 35 U/L (12-37); Bilirubin, Total 0.4 mg/dL (0.1-1.0); Blood Urea Nitrogen 12 mg/dL (8-24); Bun/Creatinine Ratio 18.8 (12.0-20.0); CO2, Blood 34 mmol/L (21-32); Calcium, Blood 8.4 mg/dL (8.5-10.1); Chloride, Blood 102 mmol/L (98-108); Creatinine, Blood 0.64 mg/dL (0.60-1.20); Globulin, Blood 5.4 g/dL (2.2-4.0); Glomerular Filtration Rate >60 (60-); Glucose, Blood 114 mg/dL (70-99); Potassium, Blood 3.6 mmol/L (3.5-5.5); Sodium, Blood 140 mmol/L (136-145); Total Protein, Blood 8.3 g/dL (6.4-8.2)
[2019-05-14] MEDS ORDERED: ASCO500 PO (15:53)
[2019-05-14] MEDS ORDERED: Aspirin EC81 MG PO (15:55)
[2019-05-14] MEDS ORDERED: Vitamin D2000 UNIT PO (15:56)
[2019-05-14] MEDS ORDERED: Ferrous Sulfat325 MG PO (15:56)
[2019-05-14] MEDS ORDERED: OMEPRAZOLE MAGN20 MG PO (15:57)
[2019-05-14] MEDS ORDERED: FURO40 PO (15:57)
[2019-05-14] MEDS ORDERED: K-Dur20 MEQ PO (15:58)
[2019-05-14] MEDS ORDERED: ATOR40TA PO (16:08)
[2019-05-14] MEDS ORDERED: Docusate S50 MG/5 ML PT (16:08)
--- NOTE | 2019-05-14 17:35 | NUR ---
Telephone report from Thais EDGAR in the ED. Anticipate arrival to PCU 10 shortly.
--- NOTE | 2019-05-14 19:38 | NUR ---
The pt was received from the ED, somnulent, with occasional moments of twitching, opening his eyes suddenly, speaking nonsensically/inappropriately/confused, and non directable. Occasional words or phrases which were coherent such as c/o pain or difficulty breathing due to position or palpation of sensitive areas. He quickly went back to sleep. Noted periods of apnea and SPO2 was dropping to 77% while on 2 l/min n.c. delivery. Oxygen was increased to 4 l/min and his spo2 maintained 88-90%. The head of the bed was also elevated to 45 degrees, which seemed to lessen his occasional agitation and improve his breathing. Unable to respond meaningfully to any conversation or simple commands. Around 183 he suddenly became very agitated, yelling out that he could not breathe and throwing his legs over the side of the bed. He was completely non-directable, yelling, screaming out for food, for his phone, and not to touch him, and that he couldn't breathe. His spo2 actually improved during this period of time, up to 93% on the 4 l/min delivery. He was repositioned in the bed back to where he was before he awoke and started yelling out, and given 1 mg of ativan to calm him down. He was continuing to demand food, to see the doctor, or to get out. This was followed by periods of somnulence. Respiratory therapy was contacted to request a set up with a CPAP for his noted sleep apnea. Villa catheter is draining clear yellow urine. He has large reddened areas which are tender to touch, on his entire lower very large abdomen, and both lower extremities below the knees. His left leg has an area which is bright pink, on the posterior and medial surfaces below the knee, approx 25 x 15 cm, which is extremely painful when touched. It was dressed with a mepilex non-bordered dressing and secured with a cotton sleeve. Abrasion on his forehead was photgraphed. Scab is in place, and no swelling or brusing around the cut.
[2019-05-15 04:49] LABS: PCO2 Arterial 91.2 mmHg (35-45); PO2 Arterial 76.5 mmHg (80-100); pH Blood Arterial 7.25 (7.35-7.45)
[2019-05-15 05:59] LABS: BASOPHILS ABSOLUTE AUTO 0.03 K/mm3 (0.00-0.23); BASOPHILS PERCENT AUTO 0 % (0-2); EOSINOPHILS ABSOLUTE AUTO 0.01 K/mm3 (0.00-0.68); EOSINOPHILS PERCENT AUTO 0 % (0-6); Hematocrit 37.5 % (37.0-53.0); Hemoglobin 10.8 g/dL (13.5-17.5); IMMATURE GRAN ABSOLUTE AUTO 0.06 K/mm3 (0.00-0.10); IMMATURE GRAN PERCENT AUTO 1 % (0-1); LYMPHOCYTES ABSOLUTE AUTO 0.97 K/mm3 (0.84-5.20); LYMPHOCYTES PERCENT AUTO 8 % (21-46); MONOCYTES PERCENT AUTO 10 % (4-13); Mean Corpuscular HGB 23.1 pg (26.0-34.0); Mean Corpuscular HGB Conc 28.8 g/dL (31.5-36.5); Mean Corpuscular Volume 80 fL (80-100); Mean Platelet Volume 9.4 fL (9.1-12.4); NEUTROPHILS ABSOLUTE AUTO 9.33 K/mm3 (1.96-9.15); NEUTROPHILS PERCENT AUTO 81 % (41-73); Platelet Count 253 K/mm3 (150-400); RDW Coefficient Variation 21.2 % (11.7-14.2); RDW Standard Deviation 61.7 fL (35.1-46.3); Red Blood Cell Count 4.67 M/mm3 (4.30-5.90)
[2019-05-15 06:17] LABS: Alanine Aminotransfer (ALT/SGP 37 U/L (12-78); Albumin, Blood 2.8 g/dL (3.4-5.0); Albumin/Globulin Ratio 0.5 (0.8-1.8); Alk Phos 82 U/L (50-136); Anion Gap 4 mmol/L (6-16); Aspartate Aminotrans (AST/SGOT 32 U/L (12-37); Bilirubin, Total 0.4 mg/dL (0.1-1.0); Blood Urea Nitrogen 11 mg/dL (8-24); Bun/Creatinine Ratio 15.7 (12.0-20.0); CO2, Blood 36 mmol/L (21-32); Calcium, Blood 8.2 mg/dL (8.5-10.1); Chloride, Blood 101 mmol/L (98-108); Globulin, Blood 5.5 g/dL (2.2-4.0); Glomerular Filtration Rate >60 (60-); Glucose, Blood 107 mg/dL (70-99); Potassium, Blood 3.7 mmol/L (3.5-5.5); Sodium, Blood 141 mmol/L (136-145); Total Protein, Blood 8.3 g/dL (6.4-8.2)
--- NOTE | 2019-05-15 07:44 | NUR ---
SHIFT SUMMARY PATIENT CONTINUES TO BE LETHARGIC THROUGHOUT THE NIGHT. PATIENT ALSO CONTINUED TO HAVE THE EPISODES OF AGITATION WHERE HE STARTS TO FLING HIS ARMS AND LEGS OUT AND GRAB AT THINGS AND PEOPLE WHILE YELLING OUT. DURING THESE EPISODES PATIENT ATTEMPTS TO PULL AT LINES AND TUBES CONSTANTLY AND WILL REMOVE HIS CPAP AND NOT ALLOW STAFF TO REPLACE IT. DURING THESE EPISDOES HE REMOVES HIS O2 CONSTANTLY. MEDICATION PROVIDED FOR EPISODES OF AGITATION PER EMAR. PATIENT APPEARS TO DO WELL AND REST WELL ONCE MEDICATION HAS TAKEN AFFECT. PATIENT USED HIS CPAP FOR MOST OF THE NIGHT, MANAGED BY RESPIRTORY THERPY. PATIENT SWITHCED TO A VISION BIPAP AFTER BLOOD GAS WAS DRAWN THIS AM. CRTICAL RESULTS CALLED TO DR. LOBO, NO NEW ORDERS RECIEVED AT THAT TIME SINCE PATIENT WAS ALREADY PLACED ON BIPAP BY RESPIRTORY THERAPY. CONTINUOUS BIOX IN PLACE. PATIENT TURNED Q2H. ORAL CARE AND SUCTION PROVIDED NEEDED. REPORT GIVEN TO ONCOMING RN.
--- NOTE | 2019-05-15 08:58 | NUR ---
This morning in report I was told that the pt would wake up intermittently, wildly flailing his limbs and risking falling out of bed, anxious, yelling, and generally undirectable and uncooperative with care. This morning he was pulling the bipap mask off of his face, and spo2 was bouncing from 77% to 88%. At that time, it had been about 20 minutes since the noc RN had given ativan, she told me. Respiratory therapist and GOLD FRAME ASSEMBLER assisted him to put bipap back on, and spent some time repositioning him in bed and applying towels to keep his airway optimally open. Vanessa Wahl also told me that she adjusted the inspiratory pressures due to his obstructive sleep apnea. At this time, I have gradually turned down the FiO2 to 30% and he is spo2 is at 95%, RR 21/min, still on the pressures of 22/10 on the bipap. He is sedated, presumably from the ativan he received about 2 hours ago. Occasionally twitching, coughing, and moving his extremities slightly. His eyes are staying closed. He is minimally responsive to assessment, including my opening his eyelids to check pupils. They are staring, pin-point.
--- NOTE | 2019-05-15 10:41 | NUR ---
Dr. Rivera here to round on the patient. The pt became very agitated, pulling off his bipap, attempting to pull off his IV and clinical support associate, and to get off the bed. He mangaged to get into a position of on all fours during this time. He was given 1 mg of ativan in order to calm him and allow 4 staff members to replace his equipment and stablize his spo2. He is now resting quietly with the bipap on, 22/10, and 30%, RR 28 breaths/min. HOB elevated 30 degrees.
--- NOTE | 2019-05-15 10:45 | NUR ---
Orders for transfer to ICU for precedex drip at this time.
--- NOTE | 2019-05-15 11:33 | NUR ---
Telephone report to SEASONAL SALES ASSOCIATE. Moving pt to room ICU 7.
--- NOTE | 2019-05-15 12:15 | NUR ---
ASSUMED CARE: REPORT RECEIVED FROM VAIBHAV Carrera RN IN PCU. PT ARRIVED TO ICU-07 AT APPROX 1150. PT TX TO ICU BED W/ SLIDER SHEET & 5 STAFF ASSIST. BIPAP SETTINGS ON ARRIVAL 22/07 & 100% FIO2 FOR DESATS NOTED W/ TX TO NEW BED. FIO2 DECREASED TO 50% NOW, WAS 30% PRIOR TO TX. DR THOMAS AT BEDSIDE DURING TX & WOULD LIKE F/U ABG DRAWN. COMPLETED BY MARIA EUGENIA RT, AT 1215. RESULTS PENDING. PT IS SOMNOLENT ON ARRIVAL, GRIMACING TO STERNAL RUB & OCCASSIONALLY MOANING/ MUTTERING W/ BIPAP IN PLACE. NOT OPENING EYES, FOLLOWING DIRECTION OR SPEAKING. LS ARE DIM T/O, BARELY AUDIBLE. MONITOR SHOWS SR W/ HR 80-90s. HTN W/ SBP 200s NOTED, LOPRESSOR GIVEN PER EMAR. DR THOMAS STS SHE MAY BEGIN LABETALOL DRIP. PRECEDEX HAS ALSO BEEN STARTED AT LOW INITIAL RATE PT IS COMBATIVE & AN EXTREMELY HIGH FALL RISK WHEN AWAKE/ AGITATED. PER REPORT, ATIVAN DOSE THAT PT HAS BEEN RECEIVING ONLY WORKS FOR APPROX 2 HRS BEFORE THE PT BECOMES AGITATED AGAIN. WILL CONTINUE TO MONITOR & UPDATE NEEDED.
[2019-05-15 12:24] LABS: PCO2 Arterial 91.5 mmHg (35-45); PO2 Arterial 122 mmHg (80-100); pH Blood Arterial 7.27 (7.35-7.45)
--- NOTE | 2019-05-15 13:30 | NUR ---
INTUBATION: 1250 - DR THOMAS, RT & 2 RNs AT BEDSIDE FOR INTUBATION. PT IS REPOSITIONED APPROPRIATELY FOR PROCEDURE. 1256 - 20 MG ETOMIDATE IN & FLUSHED. 1257 - 20 MG ROCURONIUM IN & FLUSHED. 1258 - DR THOMAS INTUBATED PT USING GLIDESCOPE. 8.0 ETT USED & NOTED TO BE 25 CM AT LIP. POSITIVE COLOR CHANGE NOTED. NO L SIDE LUNG SOUNDS ON AUSCULTATION. TUBE WITHDRAWN 1 CM TO 24 CM AT THE LIP BY DR THOMAS. LUNG SOUNDS NOW AUSCULTATED ON BOTH SIDES. VENT SETTINGS: AC 20, TV 450, PEEP 5 & FIO2 100%. 1305 - OGT PLACED. 1310 - CXR COMPLETED AT BEDSIDE TO VERIFY PLACEMENT. DR THOMAS TO EVALUATE.
[2019-05-15 13:56] LABS: PCO2 Arterial 70.8 mmHg (35-45); PO2 Arterial 72.6 mmHg (80-100); pH Blood Arterial 7.36 (7.35-7.45)
--- NOTE | 2019-05-15 15:56 | NUR ---
UPDATE: SINCE PRIOR UPDATE, PT HAS BEEN DIFFICULT TO KEEP SEDATED WHILE MAINTAINING ADEQUATE BP. DR THOMAS NOTIFIED OF THIS. 1L NS BOLUS ORDERED & INFUSING W/ MINIMAL IMPROVEMENT TO BP. SEDATION STILL LIGHT AT THIS TIME & PT IS VISIBLY UNCOMFORTABLE, SHIFTING IN BED, SHAKING HEAD & CHEWING ON ETT. DOPAMINE ORDERED TO MAINTAIN BP & ALLOW FOR INCREASED SEDATION. PICC LINE ORDERED FOR PRESSOR USE. PICC LINE HAS BEEN PLACED BY ROZ Richard RN. PT's BP NOW STABLE & ADEQUATE SEDATION HAS BEEN ACHIEVED. PER DR THOMAS, ATTEMPT MADE TO TITRATE FIO2 DOWN. PT DID NOT TOLERATE WELL & DESATS TO 85% WERE NOTED W/ FIO2 AT 90%. PEEP HAS BEEN INCREASED TO 10, FIO2 IS NOW ABLE TO BE TITRATED DOWN & IS CURRENTLY AT 80%. SHE STS THAT SHE WOULD LIKE THE FIO2 NO LOWER THAN 70% TODAY. UPON READING THE CXR, PROVIDER STS SHE WOULD LIKE THE ETT WITHDRAWN 1CM. MARIA EUGENIA Desai RT, IS AWARE & WILL BE COMPLETING THIS SOON. WILL CONTINUE TO MONITOR & UPDATE NEEDED.
--- NOTE | 2019-05-15 18:20 | NUR ---
SHIFT SUMMARY: NO ACUTE CHANGES SINCE PRIOR UPDATES. PT REMAINS INTUBATED/ SEDATED. HE IS SOMEHWAT RESTLESS DESPITE INCREASED SEDATION, MOVING EXTREMITIES & ADJUSTING SELF IN BED. VENT SETTINGS ARE NOW AC 18, TV 450, PEEP 10 & FIO2 75%. O2 SATS > 90%. PT CONTINUES HAVING THICK BLOOD-TINGED SPUTUM SUCTIONED FROM ETT. MONITOR SHOWS SR W/ BBB, HR 90s. BP STABLE W/ DOPAMINE DRIP. OGT TO LIS. HIDALGO PATENT/ DRAINING YELLOW URINE W/ SOME SEDIMENT NOTED. CELLULITIS WOUND TO LLE HAS DRESSING THAT IS CDI. DRESSINGS TO FOREHEAD & BRIDGE OF NOSE ARE CDI. WILL CONTINUE TO MONITOR & REPORT OFF TO ONCOMING RN.
--- NOTE | 2019-05-15 19:40 | NUR ---
ASSESSMENT/ASSUMED CARE PT INTUBATED AND ON [facility] VENT. SEDATED WITH PROPOFOL AT 60 MCQ/KG/MIN. VENT SETTINGS AC 18 TV 450 PEEP 10 FIO2 75% DECREASED TO 70% BY RT FOR SPO2 AT 99%. LUNGS CLEAR BUT DECREASED IN THE BASES. LARGE AMT ORAL SECRECTIONS. HEART RATE REGULAR. 93-109 WITH SBP 145. STOPPED DOPAMINE. GENERAL EDEMA. PT STACKING BREATHS MED WITH ATIVAN 2 MG. BT+HYPOACTIVE. OG TO LIS WITH GREEN LIQUID DRAINAGE. BILAT WRIST RESTRAINTS ON. DRSG TO FOREHEAD, NOSE AND LEFT LOWER EXT CD&I. HIDALGO CATH PATENT DRAINING SHERYL URINE WITH SEDIMENT. IV 20G TO LEFT HAND SALINE LOCKED, FLUSHED WITHOUT DIFFICULTY. 20G TO RIGHT AC SALINE LOCKED, FLUSHED WITHOUT DIFFICULTY. PICC LINE TO RIGHT UPPER ARM DRSG CD&I. PROPOFOL AT 60 MCQ/KG/MIN, LR AT 100 ML/HR. DOPAMINE AND PRECEDEX ON HOLD. ORAL CARE AND REPOSITIONING DONE.
--- NOTE | 2019-05-15 20:57 | NUR ---
CALL TO DR WILLIAM THOMAS NOTIFIED REGARDING DOPAMINE OFF DUE TO HEART RATE 93-109 AND BP 145/65. CURRENT BP 101/54 MAP 74 HEART RATE 85. WILL RESUME DOPAMINE IF NEEDED TO KEEP MAP ABOVE 65. RECEIVED ORDER FOR FENTANYL 50-100 MCQ FOR SEDATION ADJUNCT. HOLD ON PRECEDEX AT THIS TIME. MAP TITRATE O2 DOWN BUT KEEP PEEP AT 10.
--- NOTE | 2019-05-15 22:00 | NUR ---
BED BATH/PAIN MEDS PT MED WITH FENTANYL 50 MCQ A ADJUNCT TO SEDATION FOR BED BATH. BED BATH AND LINEN CHANGE DONE. PT REPOSITIONED WITH HOB UP.
--- NOTE | 2019-05-16 00:25 | NUR ---
CALL TO HOSPITALIST CALL TO DR LOBO REGARDING CONCERNS REGARDING PT BLOOD GLUCOSE AND BECOMING HYPOGLYCEMIC. ORDER RECEIVED TO CHANGE IV FLUID TO D5 1/2 NS AT 75 ML/HR FOR ONE LITER.
[2019-05-16 03:35] LABS: BASOPHILS ABSOLUTE AUTO 0.03 K/mm3 (0.00-0.23); BASOPHILS PERCENT AUTO 0 % (0-2); EOSINOPHILS ABSOLUTE AUTO 0.04 K/mm3 (0.00-0.68); EOSINOPHILS PERCENT AUTO 0 % (0-6); Hematocrit 31.3 % (37.0-53.0); Hemoglobin 9.2 g/dL (13.5-17.5); IMMATURE GRAN ABSOLUTE AUTO 0.03 K/mm3 (0.00-0.10); IMMATURE GRAN PERCENT AUTO 0 % (0-1); LYMPHOCYTES ABSOLUTE AUTO 0.74 K/mm3 (0.84-5.20); LYMPHOCYTES PERCENT AUTO 8 % (21-46); MONOCYTES ABSOLUTE AUTO 1.15 K/mm3 (0.16-1.47); MONOCYTES PERCENT AUTO 12 % (4-13); Mean Corpuscular HGB 23.6 pg (26.0-34.0); Mean Corpuscular HGB Conc 29.4 g/dL (31.5-36.5); Mean Corpuscular Volume 80 fL (80-100); Mean Platelet Volume 9.4 fL (9.1-12.4); NEUTROPHILS ABSOLUTE AUTO 7.39 K/mm3 (1.96-9.15); NEUTROPHILS PERCENT AUTO 79 % (41-73); Platelet Count 211 K/mm3 (150-400); RDW Coefficient Variation 21.2 % (11.7-14.2); White Blood Cell Count 9.38 K/mm3 (4.00-11.30)
[2019-05-16 03:51] LABS: Anion Gap 6 mmol/L (6-16); Blood Urea Nitrogen 19 mg/dL (8-24); Bun/Creatinine Ratio 22.2 (12.0-20.0); CO2, Blood 37 mmol/L (21-32); Calcium, Blood 7.6 mg/dL (8.5-10.1); Chloride, Blood 101 mmol/L (98-108); Creatinine, Blood 0.86 mg/dL (0.60-1.20); Glomerular Filtration Rate >60 (60-); Glucose, Blood 129 mg/dL (70-99); Potassium, Blood 3.1 mmol/L (3.5-5.5); Sodium, Blood 144 mmol/L (136-145)
[2019-05-16 04:54] LABS: PCO2 Arterial 50.2 mmHg (35-45); PO2 Arterial 83.2 mmHg (80-100); pH Blood Arterial 7.49 (7.35-7.45)
--- NOTE | 2019-05-16 05:38 | NUR ---
SHIFT SUMMARY PT CONT INTUBATED AND ON [facility] VENT. LUNGS CLEAR BUT DECREASED THROUGHOUT. CURRENT VENT SETTINGS AC 18 TV 450 PEEP 10 FIO2 TITRATED DOWN FROM 75% TO 40% WHILE KEEPING SPO2 ABOVE 95%. LARGE AMOUNT ORAL SECRECTIONS THROUGHOUT THE NIGHT. HEART RATE REGULAR DOWN TO 70-80'S AFTER TITRATING DOPAMINE OFF. BP STABLE OFF DOPAMINE. PT MED ONCE DURING THE NIGHT WITH FENTANYL 50 MCQ A ADJUNCT FOR SEDATION WITH BEDBATH. PICC LINE TO RIGHT UPPER ARM WITH PROPOFOL AT 60 MCQ/KG/MIN, LR AT 10 ML/HR AND D5 1/2 AT 75 ML/HR. PICC DRSG INTACT. D5 1/2 STARTED DURING THE NIGHT DUE TO DECREASED BLOOD GLUCOSE AND NO ORAL INTAKE. OG TO LIS WITH DARK GREEN LIQUID DRAINING. DRSG TO LEFT LOWER EXT, FOREHEAD AND NOSE CD&I. BILAT SOFT WRIST RESTRAINTS ON TO PREVENT SELF EXTUBATION. REPORT TO ON COMING NURSE
--- NOTE | 2019-05-16 08:49 | NUR ---
CARE ASSUMED CARE AND REPORT ASSUMED FROM ALIZE EDGAR. PT INTUBATED AND SEDATED. VENT AC 14, 450, PEEP 10, FIO2 40%. LUNG SOUNDS CLEAR TO DIMINSHED. PROPOFOL GTT INFUSING AT 60 MCG. POTASSIUM REPLACEMENT INFUSING PER ORDERS. D5 1/2 NS INFUSING AT 75 ML/HR PER ORDER. SKIN ON LOWER LEGS AND PANUS IS REDDENED AND HARD; NO WEEPING. BUE RESTRAINED TO PROTECT ETT AND LINES. HOB ELEVATED. HIDALGO CATH SECURED AND PATENT. AFEBRILE. PT APPEARS COMFORTABLE WITH NO GRIMACING OR SIGNS OF PAIN. WILL CONTINUE TO MONITOR.
--- NOTE | 2019-05-16 12:19 | NUR ---
REASSESSMENT PT REMAINS INTUBATED AND SEDATED. VENT AC 14, 400, PEEP 10, FIO2 40%. PROPOFOL GTT INFUSING AT 50 MCG/KG. NO S/S PAIN AT THIS TIME. VSS. NSR, HR 80S. BP WNL. LUNG SOUNDS CLEAR. OGT CONTINUES TO LIWS. AWAITING DIETARY CONSULT FOR TUBE FEEDS. REMAINS IN BUE RESTRAINTS. HOB ELEVATED AND PT TURNED Q2H. WILL CONTINUE TO MONITOR.
--- NOTE | 2019-05-16 12:55 | NUR ---
Pt currently resting in bed and is intubated. Pt appears comfortable with no S/S of distress at this time. Pt's bedside nurse currently unavailable. Will discuss case at a later time. Reviewed Pt's chart. Palliative Care will remain available.
--- NOTE | 2019-05-16 17:08 | NUR ---
REASSESSMENT PT REMAINS INTUBATED AND SEDATED. DOES RESPOND TO VERBAL AND PAINFUL STIMULI DURING SEDATION VACATION. AFEBRILE. VSS. REMAINS IN NSR, HR 80S. TOLERATING TF AT THIS TIME; NOT ENOUGH INFUSED TO MONITOR FOR RESIDUALS YET. DRESSING CHANGED ON L LOWER EXTREMITY AND PHOTO OBTAINED; SEE CHART. REMAINS IN BUE RESTRAINTS. VENT AC 14, TV 400, PEEP 10, FIO2 40%. LUNG SOUNDS CLEAR. WILL CONTINUE TO MONITOR.
--- NOTE | 2019-05-16 17:55 | NUR ---
SHIFT SUMMARY PT INTUBATED AND SEDATED ENTIRE SHIFT EXCEPT DURING SEDATION VACATION. PT DOES RESPOND TO VERBAL AND PAINFUL STIMULI BUT IS UNABLE TO FOLLOW COMMANDS. NO S/S PAIN. HOB ELEVATED AND PT TURNED Q2 HOURS. PHOTO OBTAINED OF L LEG AND DRESSING CHANGED. TF STARTED THIS AFTERNOON, INFUSING AT 30 ML/HR, GOAL RATE. HAS BEEN IN NSR, HR 80S. BP STABLE ENTIRE SHIFT. LUNG SOUNDS CLEAR THROUGHOUT SHIFT. VOIDED APPROX 1600 ML URINE OUTPUT DURING SHIFT. WILL GIVE BEDSIDE, HANDOFF REPORT TO TYRESE RN.
[2019-05-17 04:01] LABS: BASOPHILS ABSOLUTE AUTO 0.02 K/mm3 (0.00-0.23); BASOPHILS PERCENT AUTO 0 % (0-2); EOSINOPHILS ABSOLUTE AUTO 0.11 K/mm3 (0.00-0.68); EOSINOPHILS PERCENT AUTO 1 % (0-6); Hematocrit 30.2 % (37.0-53.0); IMMATURE GRAN ABSOLUTE AUTO 0.03 K/mm3 (0.00-0.10); IMMATURE GRAN PERCENT AUTO 0 % (0-1); LYMPHOCYTES ABSOLUTE AUTO 0.88 K/mm3 (0.84-5.20); LYMPHOCYTES PERCENT AUTO 11 % (21-46); MONOCYTES ABSOLUTE AUTO 0.94 K/mm3 (0.16-1.47); MONOCYTES PERCENT AUTO 11 % (4-13); Mean Corpuscular HGB 23.2 pg (26.0-34.0); Mean Corpuscular HGB Conc 29.8 g/dL (31.5-36.5); Mean Corpuscular Volume 78 fL (80-100); Mean Platelet Volume 9.3 fL (9.1-12.4); NEUTROPHILS ABSOLUTE AUTO 6.25 K/mm3 (1.96-9.15); NEUTROPHILS PERCENT AUTO 76 % (41-73); Platelet Count 204 K/mm3 (150-400); RDW Coefficient Variation 21.6 % (11.7-14.2); RDW Standard Deviation 61.1 fL (35.1-46.3); Red Blood Cell Count 3.88 M/mm3 (4.30-5.90); White Blood Cell Count 8.23 K/mm3 (4.00-11.30)
[2019-05-17 04:17] LABS: Anion Gap 5 mmol/L (6-16); Blood Urea Nitrogen 17 mg/dL (8-24); Bun/Creatinine Ratio 20.3 (12.0-20.0); CO2, Blood 37 mmol/L (21-32); Calcium, Blood 7.7 mg/dL (8.5-10.1); Chloride, Blood 101 mmol/L (98-108); Creatinine, Blood 0.84 mg/dL (0.60-1.20); Glomerular Filtration Rate >60 (60-); Glucose, Blood 122 mg/dL (70-99); Phosphorus, Blood 3.1 mg/dL (2.5-4.9); Potassium, Blood 3.7 mmol/L (3.5-5.5); Sodium, Blood 143 mmol/L (136-145); Triglycerides 183 mg/dL (30-160)
[2019-05-17 04:31] LABS: PCO2 Arterial 51.1 mmHg (35-45); PO2 Arterial 74.5 mmHg (80-100); pH Blood Arterial 7.49 (7.35-7.45)
--- NOTE | 2019-05-17 05:41 | NUR ---
SHIFT NOTE PT HAS REMAINED SEDATED ON VENT THROUGHOUT THE SHIFT. VENT SETTINGS UNCHANGED AT AC 14, TV 400, PEEP 10, FIO2 40%. PT WITH SOME THICKENING GAINES SECRETIONS THROUGHOUT THE NIGHT. VITAL SIGNS HAVE REMAINED STABLE. PROPOFOL TITRATED BETWEEN 40-50 MCG/KG/MIN. PT RESTLESS WITH DECREASED SEDATION. PICC TO NATALIE C/D/I. NS TKO. OGT IN PLACE WITH TF AT 30 ML/HR GOAL RATE, NO RESIDUALS NOTED. HIDALGO IN PLACE WITH GREEN/BROWN OUTPUT. PT WITH WOUNDS TO NOSE, FOREHEAD, AND LLE UNCHANGED. SBW RESTRAINTS IN PLACE. WILL CONTINUE TO MONITOR AND REPORT OFF TO ONCOMING RN.
--- NOTE | 2019-05-17 08:00 | NUR ---
INITIAL ASSESSMENT PATIENT INTUBATED AND ON SEDATION. PATIENT UNRESPONSIVE. NO MOVEMENT OF EXTREMITIES OR FURROWING OF BROWS WITH PAINFUL STIMULI. NO GAG, COUGH OR SWALLOW REFLEXES NOTED. PUPILS 2+ AND REACT SLUGGISHLY TO LIGHT. DOLLS EYES NOTED. PROPOFOL DECREASED FROM 50 TO 30 MCG/ KG/ MINUTE AND PRECEDEX STARTED AT 0.4 MCG/ KG/ HOUR. PATIENT HAS NO SIGNS OF PAIN OR DISTRESS NOTED AT THIS TIME. PATIENT HAS TEMP OF 99.0 DEGREES FAHRENHEIT. ROOM TEMP TURNED DOWN SOME AND FAN APPLIED TO PATIENT. PATIENT SATTING 90% AND GREATER ON VENT SETTINGS OF AC 14, TV 400, PEEP 10, AND 40% FIO2. LUNGS CLEAR IN UPPER LOBES AND DIMINISHED IN LOWER LOBES. SMALL, THICK, GAINES SECRETIONS BEING SUCTIONED FROM ETT. PATIENT IN SR WITH BBB. HR IN THE 80S. BP STABLE- SBP LOW 100S TO 120. RADIAL AND R PEDAL PULSES 2+ IN STRENGTH. L PEDAL AND BILAT TIBIAL PULSES 1+ IN STRENGTH. ABDOMEN SEVERELY DISTENDED, FIRM, WITH HYPOACTIVE BS NOTED. LAST DATE OF BM UKNOWN. PRN MOM GIVEN. VHP TF INFUSING AT GOAL RATE OF 30 MLS/ HOUR WITH 60 ML WATER FLUSH Q4H. RESIDUAL OF 0 ML THIS AM. HIDALGO DRAINING GREEN COLORED URINE. SCHEDULED LASIX GIVEN THIS AM. GENERALIZED EDEMA NOTED. PITTING EDEMA NOTED IN BILAT HANDS, BLES, AND ABDOMEN. BLES AND LOWER ABDOMEN REDDENED AND SWOLLEN. ABRASION TO R CALF. SCAB TO BRIDGE OF NOSE. ABRASION TO MIDDLE OF FOREHEAD. NS TKO. BED LOW, CALL LIGHT IN REACH. WILL CONTINUE TO MONITOR PATIENT FREQUENTLY THROUGHOUT SHIFT.
--- NOTE | 2019-05-17 12:25 | NUR ---
PATIENT RESTING QUIETLY IN BED. PATIENT REMAINS INTUBATED. PROPOFOL PLACED ON STANDBY FOR SEDATION VACATION. PATIENT REMAINS ON PRECEDEX AT 0.4 MCG/ KG/ HOUR. PATIENT RESPONDING TO PAINFUL STIMULI. GROSS MOVEMENTS OF ALL EXTREMITIES NOTED. COUGH REFLEX NOW INTACT. PATIENT DISPLAYS NO S/S OF PAIN OR DISCOMFORT AT THIS TIME. PATIENT REMAINS SATTING 90% AND GREATER ON SAME VENT SETTINGS. NO CHANGE IN LUNG SOUNDS. PATIENT IN SR WITH BBB, HR 60S TO 70S. SBP IN THE 90S. TF INCREASED TO NEW GOAL RATE OF 50 MLS/ HOUR. RESIDUAL OF ZERO. HIDALGO DRAINING GREEN URINE WITH SEDIMENT NOTED. BLOOD SUGAR OF 113- NO COVERAGE INDICATED. NO OTHER ACUTE CHANGES TO NOTE ON AT THIS TIME. WILL CONTINUE TO MONITOR.
[2019-05-17] MEDS ORDERED: ACET500 PO (13:57)
--- NOTE | 2019-05-17 16:45 | NUR ---
PATIENT REMAINS INTUBATED AND SEDATED. PATIENT AFEBRILE. NO SIGNS OF PAIN OR DISCOMFORT. PATIENT SATTING 96% ON VENT SETTINGS OF AC 14, TV 400, PEEP 8, FIO2 40%. PATIENT IN SR WITH BBB, HR IN THE 60S. SBP IN THE LOW 100S. TF RESIDUAL OF 0 ML. NO OTHER ACUTE CHANGES TO NOTE ON AT THIS TIME. WILL CONTINUE TO MONITOR.
--- NOTE | 2019-05-17 19:04 | NUR ---
SHIFT SUMMARY PATIENT REMAINS INTUBATED AND SEDATED. PRECEDEX ADDED TO SEDATION THIS AM IN ADDITION TO PROPOFOL. PATIENT HAD SEDATION VACATION DURING SHIFT. TOOK SOME TIME FOR PATIENT TO WAKE UP. PATIENT BEGAN COUGHING, RNS SUCTIONED PATIENT AND REPOSITIONED AND PATIENT BECAME AGITATED AND GRABBING TOWARD ETT. PATIENT DID NOT FOLLOW ANY SIMPLE COMMANDS AT THAT TIME. PATIENT PLACED BACK ON PROPOFOL. PATIENT HAD NO SIGNS OF PAIN DURING SHIFT. PATIENT HAD LOW GRADE TEMP AT BEGINNING OF SHIFT BUT AFEBRILE THE REST OF THE SHIFT. VENT SETTINGS OF AC 14, TV 400, PEEP 10, 40% AT BEGINNING OF SHIFT. SETTINGS NOW AC 14, TV 400, PEEP 8, 30% FIO2. SMALL AMOUNT OF THICK, GAINES SECRETIONS SUCTIONED THROUGH ETT ALL SHIFT. LUNGS REMAINED CLEAR IN UPPER LOBES AND DIMINISHED IN LOWER LOBES. PATIENT REMAINED IN SR WITH BBB. HR 60S TO 80S AND SBP 90S TO 120S. PATIENT DID NOT HAVE BM THIS SHIFT. MOM GIVEN. TF INCREASED TO NEW GOAL RATE OF 50 MLS/ HOUR WITH 60 ML WATER FLUSH Q4H. RESIDUALS ZERO ALL SHIFT. HIDALGO DRAINED ADEQUATE AMOUNT OF DARK GREEN URINE WITH SEDIMENT NOTED. PATIENT RECEIVED SCHEDULED 40 MG IV LASIX TWICE DURING SHIFT. PATIENT REPOSITIONED Q2H. PROPOFOL CURRENTLY INFUSING AT 20 MCG/ KG/ MINUTE, PRECEDEX AT 0.4 MCG/ KG/ HOUR, NS TKO. BED LOW, CALL LIGHT IN REACH. REPORT GIVEN TO ONCOMING PLASTIC WELDER NURSE.
--- NOTE | 2019-05-17 20:06 | NUR ---
ASSUMED CARE BEDSIDE REPORT RECIEVED. PT IS RESTING IN BED, SEDATED, ON VENT. PT SEDATED WITH PROPOFOL AT 20 MCG/KG/MIN AND PRECEDEX AT 0.6 MCG/KG/MIN. PT GRIMMACES TO ORAL CARE AND HAS GROSS MOVEMENT IN ALL EXTREMITIES. VENT SETTINGS AC 14, TV 400, PEEP 8, FIO2 35%. PT WITH SOME THICK BLOODY SECRETIONS WITH ETT SUCTION. OGT IN PLACE WITH TF AT 50 ML/HR GOAL RATE, NO RESIDUALS. PICC TO NATALIE C/D/I. HIDALGO IN PLACE WITH DARK GREEN OUTPUT NOTED. DRESSINGS TO WOUNDS C/D/I. SBW RESTRAINTS IN PLACE. VSS. WILL CONTINUE TO MONITOR.
[2019-05-18 04:43] LABS: Albumin, Blood 2.3 g/dL (3.4-5.0); Anion Gap 4 mmol/L (6-16); Blood Urea Nitrogen 24 mg/dL (8-24); Bun/Creatinine Ratio 26.4 (12.0-20.0); CO2, Blood 37 mmol/L (21-32); Chloride, Blood 100 mmol/L (98-108); Creatinine, Blood 0.91 mg/dL (0.60-1.20); Glomerular Filtration Rate >60 (60-); Glucose, Blood 121 mg/dL (70-99); Phosphorus, Blood 4.4 mg/dL (2.5-4.9); Potassium, Blood 3.7 mmol/L (3.5-5.5); Sodium, Blood 141 mmol/L (136-145)
--- NOTE | 2019-05-18 05:26 | NUR ---
SHIFT SUMMARY NO ACUTE CHANGES THIS SHIFT. PT HAS REMAINED SEDATED ON VENT THROUGHOUT THE SHIFT. VENT SETTINGS AC 14, TV 400, PEEP 8, FIO2 40%. PT DID WELL WITH SBT THIS AM. PT FOLLOWING COMMANDS AND SHAKING HEAD YES OR NO TO QUESTIONS. PT WITH INCREASING AMOUNT OF BLOODY SECRETIONS WITH ETT SUCTION THROUGHOUT THE NIGHT. PICC REMAINS C/D/I WITH PROPOFOL INFUSING AT 15 MCG/KG/MIN, PRECEDEX AT 0.5 MCG/KG/MIN, AND NS TKO. OGT REMAINS IN PLACE WITH TF AT 50 ML/HR GOAL RATE. HIDALGO REMAINS IN PLACE WITH GREEN OUTPUT. SBW RESTRAINTS REMAIN IN PLACE. VITAL SIGNS HAVE REMAINED STABLE. WILL CONTINUE TO MONITOR AND REPORT OFF TO ONCOMING RN.
--- NOTE | 2019-05-18 08:00 | NUR ---
INITIAL ASSESSMENT PATIENT INTUBATED AND SEDATED. PATIENT RESPONDS MINIMALLY TO PAINFUL STIMULI. NO MOVEMENT OF EXTREMITIES. GRIMACING NOTED WITH ORAL CARE. PATIENT AFEBRILE. NO SIGNS OF PAIN OR DISCOMFORT NOTED. PATIENT SATTING 90% AND GREATER ON VENT SETTINGS OF AC 14, TV 400, PEEP 8, FIO2 40%. LEFT LOWER LUNG LOBE DIMINISHED ON AUSCULTATION. ALL OTHER LUNGS LOBES CLEAR T/O. SMALL AMOUNT OF THICK, BLOODY SPUTUM BEING SUCTIONED FROM ETT. PATIENT IN SR WITH BBB AND OCCASIONAL PACS. HR 60S TO 70S. SBP LOW 100S TO 1-TEENS. ABDOMEN SEVERELY DISTENDED, FIRM, WITH TYMPANIC BS NOTED. PATIENT HAS NOT HAD BM SINCE BEFORE ADMITTED. ABSORPTION OPERATOR DID REPORT A TINY SMEAR DURING NIGHT. VITAL HIGH PROTEIN TF INFUSING AT GOAL RATE OF 50 MLS/ HOUR WITH 60 ML WATER FLUSH Q4H. RESIDUAL OF ZERO THIS AM. HIDALGO DRAINING DARK GREEN URINE WITH SEDIMENT NOTED. SCHEDULED AM IV LASIX GIVEN. PATIENT'S ABDOMEN AND BLES REDDENED/ SWOLLEN. SCAB TO FOREHEAD AND BRIDGE OF NOSE. WOUNDS TO BLES. PATIENT HAS GENERALIZED EDEMA AND PITTING EDEMA OF BILAT HANDS, ABDOMEN AND BLES. FORESKIN EDEMA ALSO NOTED. PROPOFOL INFUSING AT 15 MCG/ KG/ MINUTE, PRECEDEX INFUSING AT 0.5 MCG/ KG/ HOUR, NS TKO. BED LOW, CALL LIGHT IN REACH. WILL CONTINUE TO MONITOR PATIENT FREQUENTLY THROUGHOUT SHIFT.
--- NOTE | 2019-05-18 11:16 | NUR ---
DR. TORRES HERE TO SEE PATIENT. DR. TORRES INFORMED MOLD MAKER APPRENTICE RN REPORTED THAT PATIENT PERFORMED WELL ON WEAN AND FOLLOWED SOME COMMANDS THIS AM ON SEDATION VACATION WITH JUST PRECEDEX INFUSING AT 0.2 MCG/ KG/ HOUR. INFORMED THAT FIO2 INCREASED FROM 30% AT END OF DAY SHIFT YESTERDAY TO 40% THIS AM. INFORMED THAT MOLD MAKER APPRENTICE NURSE ALSO REPORTED BLOODY SECRETIONS BEING SUCTIONED FROM ETT DURING NIGHT. INFORMED THAT SMALL AMOUNT OF THICK, BLOODY SECRETIONS SUCTIONED FROM ETT TUBE THIS AM AND THAT NO BLOODY ORAL SECRETIONS NOTED THIS AM. INFORMED THAT NO H&H LEVELS OBTAINED THIS AM. NO ORDERS RECEIVED AT THIS TIME.
--- NOTE | 2019-05-18 11:45 | NUR ---
PATIENT REMAINS INTUBATED AND SEDATED. NO CHANGE IN NEURO FUNCTION. AFEBRILE. VITAL SIGNS REMAIN STABLE. NO CHANGES IN VENT SETTINGS. HR IN THE 60S. SBP IN THE 90S. PATIENT VOIDING TEA/ GREEN COLORED URINE WITH SEDIMENT NOTED. ABDOMEN APPEARS TENDER WITH PALPATION. BOWEL SOUNDS NOW NORMOACTIVE. PATIENT GIVEN PRN SUPPOSITORY ORDERED BY DR. TORRES. PATIENT TOLERATING TF AT GOAL RATE OF 65 MLS/ HOUR WITH 60 ML WATER FLUSH Q4H. RESIDUAL OF ZERO. BLOOD SUGAR OF 107- NO COVERAGE INDICATED. NO SIGNS OF PAIN OR DISCOMFORT NOTED AT THIS TIME. NO OTHER ACUTE CHANGES TO NOTE ON. WILL CONTINUE TO MONITOR.
[2019-05-18 11:54] LABS: Hematocrit 32.2 % (37.0-53.0); Hemoglobin 9.5 g/dL (13.5-17.5)
--- NOTE | 2019-05-18 16:00 | NUR ---
REMAINS INTUBATED AND SEDATED. PATIENT HAD HALF HOUR SEDATION VACATION. PATIENT WOKE UP AGITATED, NOT FOLLOWING SIMPLE COMMANDS. PROPOFOL BACK TO INFUSING AT 15 MCG/ KG/ MINUTE AND PRECEDEX AT 0.5 MCG/ KG/ HOUR. PATIENT REMAINS AFEBRILE. PATIENT REMAINS SATTING WELL ON SAME VENT SETTINGS. BLOOD BEING SUCTIONED FROM ETT DECREASED FROM SMALL AMOUNT TO SCANT AMOUNT. PATIENT REMAINS IN SR WITH BBB AND OCCASIONAL PACS. HR IN THE 60S. SBP IN THE 90S. PATIENT REMAINS TOLERATING TF AT GOAL RATE. RESIDUAL OF ZERO. NO BM THIS SHIFT. SUPPOSITORY GIVEN EARLIER. NO SIGNS OF PAIN OR DISCOMFORT NOTED. NO OTHER ACUTE CHANGES TO NOTE ON AT THIS TIME. WILL CONTINUE TO MONITOR.
--- NOTE | 2019-05-18 18:35 | NUR ---
SHIFT SUMMARY PATIENT REMAINED INTUBATED AND SEDATED. PATIENT GRIMACED WITH ORAL CARE. PATIENT HAD SEDATION VACATION FOR HALF HOUR DURING SHIFT. PATIENT REMAINED AFEBRILE. NO SIGNS OF PAIN NOTED T/O SHIFT. PATIENT REMAINED SATTING 90% AND GREATER ON VENT SETTINGS OF AC 14, TV 400, PEEP 8, FIO2 40%. SMALL AMOUNT OF THICK, BLOODY SECRETIONS FROM ETT IN AM. AMOUNT DECREASED TO SCANT T/O SHIFT. LUNGS REMAINED DIMINISHED IN LLL AND CLEAR IN ALL OTHER LUNG LOBES. PATIENT SB TO SR WITH BBB AND OCCASIONAL PACS. HR RANGED FROM HIGH 50S TO 70S. SBP 90S TO 1-TEENS. PATIENT DID NOT HAVE BM THIS SHIFT. PRN SUPPOSITORY GIVEN. HARD STOOL FELT IN RECTUM UPON INSERTION. TF GOAL INCREASED TO 65 MLS/ HOUR FROM 50 MLS/ HOUR. TF FLUSH DECREASED FROM 60 MLS/ HOUR TO 40 MLS/ HOUR. PATIENT REMAINS TOLERATING WELL. RESIDUALS ZERO AT EACH CHECK. HIDALGO DRAINED ADEQUATE AMOUNT OF TEA/ GREEN COLORED URINE WITH SEDIMENT NOTED. PATIENT REMAINS RECEIVING SCHEDULED IV LASIX 40MG BID. NO CHANGE TO SKIN. PATIENT REPOSITIONED Q2H. BLOOD SUGARS 107-118- NO COVERAGE INDICATED. PATIENT HAS NO SIGNS OF PAIN OR DISTRESS AT THIS TIME. BED LOW, CALL LIGHT IN REACH. REPORT WILL BE GIVEN TO ASSUMING TUB OPERATOR NURSE SHORTLY.
--- NOTE | 2019-05-18 20:02 | NUR ---
ASSUMED CARE REPORT RECIEVED. PT IS LAYING BED SEDATED ON VENT. PT SEDATED WITH PROPOFOL AT 20 MCG/KG/MIN AND PRECEDEX AT 0.4 MCG/KG/MIN. VENT SETTINGS AC 14, TV 400, PEEP 8, FIO2 40%. PT WITH SOME BLOODY SECRETIONS WITH ETT SUCTION. OGT IN PLACE WITH TF AT 65 ML/HR GOAL RATE. PICC TO NTAALIE C/D/I. HIDALGO IN PLACE WITH CLEAR/GREEN OUTPUT NOTED. SBW RESTRAINTS IN PLACE. NO FAMILY AT BEDSIDE. WILL CONTINUE TO MONITOR.
[2019-05-19 04:29] LABS: BASOPHILS ABSOLUTE AUTO 0.03 K/mm3 (0.00-0.23); BASOPHILS PERCENT AUTO 0 % (0-2); EOSINOPHILS ABSOLUTE AUTO 0.19 K/mm3 (0.00-0.68); EOSINOPHILS PERCENT AUTO 2 % (0-6); Hematocrit 33.3 % (37.0-53.0); Hemoglobin 9.8 g/dL (13.5-17.5); IMMATURE GRAN ABSOLUTE AUTO 0.07 K/mm3 (0.00-0.10); IMMATURE GRAN PERCENT AUTO 1 % (0-1); LYMPHOCYTES ABSOLUTE AUTO 1.02 K/mm3 (0.84-5.20); LYMPHOCYTES PERCENT AUTO 11 % (21-46); MONOCYTES ABSOLUTE AUTO 0.83 K/mm3 (0.16-1.47); MONOCYTES PERCENT AUTO 9 % (4-13); Mean Corpuscular HGB 23.4 pg (26.0-34.0); Mean Corpuscular HGB Conc 29.4 g/dL (31.5-36.5); Mean Corpuscular Volume 80 fL (80-100); NEUTROPHILS PERCENT AUTO 78 % (41-73); Platelet Count 215 K/mm3 (150-400); RDW Coefficient Variation 22.1 % (11.7-14.2); RDW Standard Deviation 63.6 fL (35.1-46.3); Red Blood Cell Count 4.19 M/mm3 (4.30-5.90); White Blood Cell Count 9.74 K/mm3 (4.00-11.30)
[2019-05-19 04:43] LABS: Albumin, Blood 2.2 g/dL (3.4-5.0); Anion Gap 5 mmol/L (6-16); Blood Urea Nitrogen 38 mg/dL (8-24); Bun/Creatinine Ratio 40.9 (12.0-20.0); CO2, Blood 36 mmol/L (21-32); Calcium, Blood 7.9 mg/dL (8.5-10.1); Chloride, Blood 102 mmol/L (98-108); Creatinine, Blood 0.93 mg/dL (0.60-1.20); Glomerular Filtration Rate >60 (60-); Glucose, Blood 125 mg/dL (70-99); Magnesium, Blood 2.4 mg/dL (1.6-2.4); Potassium, Blood 3.9 mmol/L (3.5-5.5); Sodium, Blood 143 mmol/L (136-145)
[2019-05-19 05:03] LABS: PCO2 Arterial 50.7 mmHg (35-45); PO2 Arterial 68.8 mmHg (80-100); pH Blood Arterial 7.47 (7.35-7.45)
--- NOTE | 2019-05-19 05:39 | NUR ---
SHIFT SUMMARY NO ACUTE CHANGES THIS SHIFT. PT HAS REMAINED SEDATED ON THE VENT THROUGHOUT THE NIGHT. PT DOING WELL WITH SBT AND REMAINS ON PRESSURE SUPPORT WITH 40% FIO2 AT THIS TIME. PROPOFOL ON STAND BY AND PRECEDEX REMAINS ON AT 0.4 MCG/KG/MIN. PT RESTLESS AT TIMES WITH DECREASED SEDATION. PT IS ABLE TO FOLLOW COMMANDS APPROPRIATELY AND SHAKE HEAD YES OR NO TO QUESTIONS. VITAL SIGNS HAVE REMAINED STABLE. OGT REMAINS IN PLACE WITH TF AT 65 ML/HR GOAL RATE. NO RESIDUALS. PICC REMAINS C/D/I. HIDALGO REMAINS IN PLACE WITH GOOD URINE OUTPUT. SBW RESTRAINTS REMAIN IN PLACE. WILL CONTINUE TO MONITOR AND REPORT OFF TO ONCOMING RN.
--- NOTE | 2019-05-19 13:54 | NUR ---
PT CONT TO REST WELL AND DECREASING DOSE OF PRECEDEX GTT NOTED. PT HAVING SMEAR OF STOOL AND CLEANED.
--- NOTE | 2019-05-19 14:57 | NUR ---
PT NOTED TO BE QUITE AGITATED. PRECEDEX AND PROPOFOL GTTS INC TO ASSIST. WILL MONITOR FOR EFFECT.
--- NOTE | 2019-05-19 15:35 | NUR ---
PT HAS CALMED DOWN WITH IVF ADJUSTMENTS NOTED.
--- NOTE | 2019-05-19 18:25 | NUR ---
PT IS RESTING WELL ON CURRENT GTTS NOTED. VS HAVE BEEN STABLE. I/O NOTED AND REPORTED REQUESTED EARLIER. PT CONT TO TOLERATE T.F. RETRAINT LOG COMPLETED. PT CONT TO TOLERATE SPONT. 10/5 AT 40%. SCANT WHITE SX TODAY PER RT.
--- NOTE | 2019-05-19 21:51 | NUR ---
ASSUMED CARE OF PT, REPORT RCV'D FROM TALA GORDILLO. PT VENTED ON SPONTANEOUS 10/5 40% AND SEDATED WITH PROPOFOL 20 MCG/KG/HR AND PRECEDEX 0.4 MCG/KG/MIN. PT RESPONDS TO VERBAL/PAINFUL STIMULI AND FOLLOWS COMMANDS. VITAL HIGH PROTEIN AT GOAL RATE 65 WITH 40 ML Q4 FLUSH. PT AFEBRIL AND VSS. SEE FULL SHIFT ASSESSMENT.
--- NOTE | 2019-05-19 23:18 | NUR ---
PT SWITCHED FROM SPONTANEOUS TO AC 14/5/40% D/T LOW TIDAL VOLUMES. PLAN TO SWITCH BACK TO SPONTANEOUS IN MORNING.
[2019-05-20 04:18] LABS: BASOPHILS ABSOLUTE AUTO 0.03 K/mm3 (0.00-0.23); BASOPHILS PERCENT AUTO 0 % (0-2); EOSINOPHILS ABSOLUTE AUTO 0.28 K/mm3 (0.00-0.68); EOSINOPHILS PERCENT AUTO 3 % (0-6); Hematocrit 29.9 % (37.0-53.0); Hemoglobin 8.8 g/dL (13.5-17.5); IMMATURE GRAN ABSOLUTE AUTO 0.06 K/mm3 (0.00-0.10); IMMATURE GRAN PERCENT AUTO 1 % (0-1); LYMPHOCYTES ABSOLUTE AUTO 1.39 K/mm3 (0.84-5.20); LYMPHOCYTES PERCENT AUTO 15 % (21-46); MONOCYTES ABSOLUTE AUTO 0.94 K/mm3 (0.16-1.47); MONOCYTES PERCENT AUTO 10 % (4-13); Mean Corpuscular HGB 23.3 pg (26.0-34.0); Mean Corpuscular HGB Conc 29.4 g/dL (31.5-36.5); Mean Corpuscular Volume 79 fL (80-100); NEUTROPHILS ABSOLUTE AUTO 6.81 K/mm3 (1.96-9.15); NEUTROPHILS PERCENT AUTO 72 % (41-73); Platelet Count 214 K/mm3 (150-400); RDW Coefficient Variation 22.2 % (11.7-14.2); RDW Standard Deviation 64.3 fL (35.1-46.3); Red Blood Cell Count 3.77 M/mm3 (4.30-5.90); White Blood Cell Count 9.51 K/mm3 (4.00-11.30)
[2019-05-20 04:39] LABS: Anion Gap 5 mmol/L (6-16); Blood Urea Nitrogen 42 mg/dL (8-24); Bun/Creatinine Ratio 47.7 (12.0-20.0); CO2, Blood 37 mmol/L (21-32); Chloride, Blood 104 mmol/L (98-108); Creatinine, Blood 0.88 mg/dL (0.60-1.20); Glomerular Filtration Rate >60 (60-); Glucose, Blood 117 mg/dL (70-99); Magnesium, Blood 2.4 mg/dL (1.6-2.4); Potassium, Blood 3.8 mmol/L (3.5-5.5); Sodium, Blood 146 mmol/L (136-145)
[2019-05-20 05:36] LABS: PCO2 Arterial 53.3 mmHg (35-45); PO2 Arterial 71.9 mmHg (80-100); pH Blood Arterial 7.46 (7.35-7.45)
--- NOTE | 2019-05-20 06:15 | NUR ---
SHIFT SUMMARY NO ACUTE CHANGES OVERNIGHT. PT CONTINUES TO FOLLOW COMMANDS (I.E. SQUEEZING HANDS) AND OPENS EYES TO VERBAL COMMAND. PT ON AC 14/400/5/40% WITH SATS IN THE MID 90'S. MODERATE AMOUNT OF CLEAR TO BLOODY SECRETIONS OUT OF ETT. LUNG SOUNDS CLEAR/DIM T/O. PT HAD MEDIUM SIZE, FORMED BOWEL MOVEMENT. PT TOLERATING TUBE FEED WELL, NO RESIDUALS NOTED T/O SHIFT. 1500 ML SHERYL URINARY OUTPUT, 1466.7 FLUID INTAKE, -33.3 BALANCE. PROPOFOL 20 MCG/KG/MIN, PRECEDEX 20 MCG/KG/MIN. WILL REPORT TO DAYSHIFT NURSE.
--- NOTE | 2019-05-20 10:46 | NUR ---
0745 PT WAS A/O AND FOLLOWING COMMMANDS. DR LILLY IN TO EVAL PT AND ORDER GIVEN TO EXTUBATE. OG MEDS GIVEN, TF STOPPED, ORAL CARE GIVEN, PT PREPED FOR EXTUBATION. PT WAS EXTUBATED AT 0810 AND RESTRAINTS WERE D/C AT 0825. PT WAS PLACED ON HFNC AT 10L AND TOLERATING WELL WITH SATS MID 95 RANGE AND NOTED. PT YELLING OUT AND NEEDING TO HAV B.M. PT HAD WATERY BROWN STOOL AND SOME BLOODY SMEAR NOTED WITH WIPPING. PT HIDALGO REMAINS AND SHERYL CLEAR URINE.
--- NOTE | 2019-05-20 11:11 | NUR ---
PT CONT TO YELL OUT SOB AND REQUESTING FOOD AND DRINK BUT HAS BEEN INSTRUCTED TO AVE FOR NOW DUE TO RECENT EXTUBATION. PT IS NO PRECEX GTT AT 0.8 AND IS WIDE AWAKE YELLING CALLING FOR FREQUENT DEMANDS. ATTEMPTS HAVE BEEN MADE TO REDIRECT AND EDUCATE TO NO CURRENT AVAIL. PT REMAINS ON HFNC AT 10L AND WILL TITRATE ABLE.
--- NOTE | 2019-05-20 11:48 | NUR ---
PT CONT TO CALL OUT FOR P.T. AND WATER. P.T. HAS BEEN CONTACTED AND IS TO BE COMMING [facility].
--- NOTE | 2019-05-20 15:11 | NUR ---
1430 PT RETURNED TO BED FROM CHAIR DUE TO PT INABILITY TO REMAIN IN CHAIR W/O ATTEMPTING TO SLIDE OUT ON TO FLOOR OR LEAN OUT AND TO SIDE IN CHAIR. WILL FOLLOW. PT IS ON 5L HFNC AND MID 90 SATS. CONT TO INTERMITTENTLY YELL OUT EVEN ON 0.7MCG OF PRECEDEX GTT.
--- NOTE | 2019-05-20 19:25 | NUR ---
PT HAS BEEN RESTLESS AND YELLING OUT AT REGULAR INTERVALS EVEN ON PRECEDEX GTT AT 0.7MCG. FENTANYL HAS BEEN TRYED W/O GOOD CALMING RESULTS. PT WAS GIVEN ATIVAN NOTED WITH RELIEF. VS REMAIN STABLE AND SATS WELL. PT BED ALARM IS ON IS LIGHTS AT THIS TIME FOR VISUALIZATION. PT HAS HAD NO RESP DISTRESS ON THE 5L HFNC.
--- NOTE | 2019-05-20 19:30 | NUR ---
ASSUME CARES: REPORT RECIEVED FROM RAND, OFF GOING RN. MONITOR INTACT SHOWING SINUS RHYTHM.. HEART RATE 60'S. AROUSES TO VERBAL STIMULI CONFUSED CONVERSATION REQUESTING WATER. LUNG SOUNDS DECREASED COARSE. UDN TX GIVEN BBY RT. RESTS QUIETLY WHEN UNDISTURBED. ABDOMEN FIRM WITH BOWEL SOUNDS HIDALGO PATENT DRAINING SHERYL URINE. EXTREMITIES ELEVATED ON PILLOWS SECONDARY TO GENERALIZED DEPENDENT EDEMA. SKIN VERY DRY FRAGILE. DRESSINGS TO LEGS DRY INTACT. CONTINUE TO MONITOR AND REPORT CHANGE IN PATIENT CONDITION.
[2019-05-21 04:17] LABS: BASOPHILS ABSOLUTE AUTO 0.04 K/mm3 (0.00-0.23); BASOPHILS PERCENT AUTO 0 % (0-2); EOSINOPHILS ABSOLUTE AUTO 0.23 K/mm3 (0.00-0.68); EOSINOPHILS PERCENT AUTO 2 % (0-6); Hematocrit 33.2 % (37.0-53.0); Hemoglobin 9.4 g/dL (13.5-17.5); IMMATURE GRAN ABSOLUTE AUTO 0.04 K/mm3 (0.00-0.10); IMMATURE GRAN PERCENT AUTO 0 % (0-1); LYMPHOCYTES ABSOLUTE AUTO 1.23 K/mm3 (0.84-5.20); LYMPHOCYTES PERCENT AUTO 13 % (21-46); MONOCYTES ABSOLUTE AUTO 0.79 K/mm3 (0.16-1.47); MONOCYTES PERCENT AUTO 8 % (4-13); Mean Corpuscular HGB 23.5 pg (26.0-34.0); Mean Corpuscular HGB Conc 28.3 g/dL (31.5-36.5); Mean Platelet Volume 10.4 fL (9.1-12.4); NEUTROPHILS ABSOLUTE AUTO 7.39 K/mm3 (1.96-9.15); NEUTROPHILS PERCENT AUTO 76 % (41-73); Platelet Count 221 K/mm3 (150-400); RDW Standard Deviation 66.9 fL (35.1-46.3); White Blood Cell Count 9.72 K/mm3 (4.00-11.30)
[2019-05-21 04:19] LABS: Mean Corpuscular Volume 83 fL (80-100)
[2019-05-21 04:32] LABS: Anion Gap 3 mmol/L (6-16); Blood Urea Nitrogen 42 mg/dL (8-24); Bun/Creatinine Ratio 46.4 (12.0-20.0); CO2, Blood 39 mmol/L (21-32); Calcium, Blood 8.3 mg/dL (8.5-10.1); Chloride, Blood 105 mmol/L (98-108); Creatinine, Blood 0.91 mg/dL (0.60-1.20); Glomerular Filtration Rate >60 (60-); Glucose, Blood 101 mg/dL (70-99); Magnesium, Blood 2.4 mg/dL (1.6-2.4); Phosphorus, Blood 4.5 mg/dL (2.5-4.9); Sodium, Blood 147 mmol/L (136-145)
[2019-05-21 04:39] LABS: PCO2 Arterial 69.5 mmHg (35-45); PO2 Arterial 127 mmHg (80-100); pH Blood Arterial 7.36 (7.35-7.45)
--- NOTE | 2019-05-21 06:20 | NUR ---
SHIFT SUMMARY : RESTS QUIETLY WHEN UNDISTURBED. MONITOR INTACT SHOWING SINUS RHYTHM SINUS VIOLA HEART RATE 50'S-80'S WITH BBB. CALLS OUT REQUESTING WATER AND TO GET OOUT OF BED BECOMES MORE AGITATED MEDICATED WITH ATIVAN 2MG IV THRICE THIS SHIFT. LUNGS COARSE DECREASED RESPIRATIONS 16-20/MIN SPO2 95-100% HIGH FLOW O2 REDUCED TO 2L/MIN PER NC,AT 0500 ABDOMEN SOFT WITH BOWEL SOUNDS FOUR QUADS. HIDALGO PATENT DRAINING SHERYL URINE. EXTREMITIES ELEVATED ON PILLOWS SECONDARY TO GENERALLIZED EDEMA.DRESSING TO LEGS DRY INTACT. R BUTT CHEEK WITH EXCORIATED AREA CLEANSED WITH SKINSENSITY AND MEPLEX PLACED. CONTINUE TO MONITOR AND REPORT CHANGE IN PATIENT CONDITION.
--- NOTE | 2019-05-21 07:20 | NUR ---
START OF SHIFT NOTE: RECEIVED REPORT FROM TALA MENA, ASSUMED CARE, PATIENT IS AWAKE, CONTINUOUSLY YELLING FOR HELP, WATER, ICE CHIPS, PATIENT KNOWS HE IS IN [place], AND IN THE ICU, BUT DOES NOT KNOW HE IS IN THE HOSPITAL, OR WHAT YEAR IT IS, THINKS IT IS 1998, AND THE PRESIDENT IS CHRIS,, NEEDS HELP WITH TURNING TV ON, ON HIFLO 2L, PLACED IN ORAL CAVITIY SINCE PATIENT IS A MOUTH BREATHER, LUNG SOUNDS ARE DIMINISHED AND COARSE WITH OCCASIONAL RHONCHI, NSR WITHHR 70'S, BP'S IN 110'S TO 120'S, BOWEL TONES HYPOACTIVE, HIDALGO CATHETER IN PLACE, DRAINING ADEQUATE AMOUNTS OF SHERYL COLORED URINE, PEDAL PULSES ARE PALPABLE, PATIENT HAS HARD DRY SKIN ON LE'S, POSSIBLY FROM CELLULITIS, ALSO MEPILEX ON COCCYX D/T BILATERAL BUTTOCK WOUNDS, PATIENT WAS PLACED ON BEDPAN AND HAD A SMALL BM, ALSO RECEIVED ORAL CARE AND WAS SUCTIONED, UNABLE TO CLEAR SECRETIONS EFFECTIVELY, GURGLING HEARD, CALL LIGHT IN REACH WILL CONTINUE TO MONITOR.
--- NOTE | 2019-05-21 08:35 | NUR ---
PATIENT CONTINUES TO SCREAM AND YELL FOR HELP AND CONINUOUSLY USES CALL LIGHT, REPEATS SAME NEEDS OVER AND OVER, "I NEED A SHAVE, I NEED MY CPAP, I NEED TO SLEEP", PATIENT WAS AGAIN SUCTIONED, APPEARS THAT HE HAS NO GAG REFLEX, PATIENT SUCTIONS SELF AND ABLE TO PLACE YANKAUR ALL THE WAY PAST [place] WITHOUT ANY GAG REFLEX PRESENT, PATIENT IS ALSO SCREAMING FOR CHARGE NURSE, TALA BARNES, NOTIFIED, TALKING WITH PATIENT, CALL LIGHT IN REACH, WILL CONTINUE TO MONITOR.
--- NOTE | 2019-05-21 09:15 | NUR ---
DR. CIFUENTES IN TO SEE PATIENT, WILL ORDER SPEECH THERAPY AND SWALLOW EVALUATION FOR PATIENT, PATIENT WAS SUCTIONED AGAIN, PATIENT WAS ALSO SHAVED, KEEPS ASKING FOR HIS CPAP MICHAEL CONDE, RT, NOTIFIED, WILL COME TO SEE PATIENT, CALL LIGHT IN REACH, WILL CONTINUE TO MONITOR.
--- NOTE | 2019-05-21 09:32 | NUR ---
PEREZ FRIEDMAN, STEAM HOIST OPERATOR/MANAGER [employer], IN TO SEE PATIENT. MICHAEL RT, ALSO BROUGHT CPAP MACHINE TO BEDSIDE.
--- NOTE | 2019-05-21 10:00 | NUR ---
PT/OT IN TO WORK WITH PATIENT, UP IN CHAIR VIA CEILING LIFT, CONTINUES TO YELL FOR HELP AND FOR WATER, IS INSTRUCTED THAT HE HAS TO WAIT FOR SPEECH THERAPY TO EVALUATE HIS SWALLOWING, CALL LIGHT IN REACH, WILL CONTINUE TO MONITOR.
--- NOTE | 2019-05-21 10:01 | NUR ---
DR. LUJAN IN TO SEE PATIENT, NEW ORDERS RECEIVED.
--- NOTE | 2019-05-21 11:17 | NUR ---
OT IN TO WORK WITH PATIENT, PATIENT UP IN CHAIR AND KEEPS YELLING FOR WATER.
--- NOTE | 2019-05-21 11:18 | NUR ---
SPEECH THERAPY IN TO SEE PATIENT.
--- NOTE | 2019-05-21 12:01 | NUR ---
PATIENT UP IN CHAIR, C/O RIGHT HIP PAIN, RECEIVED 100 MCG OF FENTANYL, ALSO SPEECH THERAPY IN TO DO SWALLOW EVALUATION, PATIENT MAY HAVE NECTAR THICK LIQUIDS AND A ADA CARDIAC DIET, NEEDS FEEDING ASSISTANCE, CALL LIGHT IN REACH, WILL CONTINUE TO MONITOR.
--- NOTE | 2019-05-21 12:30 | NUR ---
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 DICKERSON AWARE AND WILL WRITE FOR NEW MEDICATION.
--- NOTE | 2019-05-21 12:30 | NUR ---
PATIENT RECEIVED 100 MCG OF FENTANYL FOR 10/10 RIGHT HIP PAIN, SHORTLY AFTER ADMINISTRATION PATIENT STARTED TO HALLUCINATE SLIGHTLY, SAW PEOPLE IN ROOM THAT WERE NOT PRESENT AND TALKED ABOUT GHOSTS, THIS LASTED FOR ABOUT 10 MINUTES, THEN PATIENT RETURNED TO HIS NORMAL ALERT STATE OF MIND, CALL LIGHT IN REACH, WILL CONTINUE TO MONITOR.
--- NOTE | 2019-05-21 12:48 | NUR ---
PATIENT IS A FEEDER AND ASSISTANCE WAS PROVIDED WITH LUNCH, ATE WELL, NO PROBLEM SWALLOWING, NEEDS COACHING ON CHEWING AND SWALLOWING, ATE 90 % OF LUNCH.
--- NOTE | 2019-05-21 13:07 | NUR ---
PATIENT RETURNED TO BED VIA CEILING LIFT, TOLERATED WELL, PRECEDEX NOW AT MAX OF 1.4, PATIENT CONTINUES TO YELL AND DEMAND WATER.
--- NOTE | 2019-05-21 13:34 | NUR ---
NO MORE HALLUCINATING NOTED, PATIENT IS RESTING COMFORTABLY, CALL LIGHT IN REACH, WILL CONTINUE TO MONITOR.
--- NOTE | 2019-05-21 14:05 | NUR ---
PATIENT WAS FOUND WITH IV POLE PULLED TOWARDS HIM, HE PULLED IV TUBING OUT OF THE BAG AND NS SPLASHED EVERYWHERE, WHILE DOING IT PATIENT YELLED "I WANT WATER, I WANT WATER", HE DOES NOT GRASP THAT THE FLUID IN THE BAG IS CAMERON OLIVAREZ, CHARGE NURSE, ALSO IN ROOM, PATIENT RESTING AT THIS TIME, CALL LIGHT IN REACH, WILL CONTINUE TO MONITOR.
--- NOTE | 2019-05-21 14:34 | NUR ---
EKG DONE ORDERED, PATIENT RECEIVED 1 1/2 CUPS OF NECTAR THICK WATER, CALL LIGHT IN REACH, WILL CONTINUE TO MONITOR.
--- NOTE | 2019-05-21 15:39 | NUR ---
PATIENT RECEIVED ZYPREXA AND IS BEING REDIRECTED BY THIS RN, STAFF, AND CHARGE NURSE, APPEARS TO BE SLIGHTLY MORE COOPERATIVE, CALL LIGHT IN REACH, WILL CONTINUE TO MONITOR.
--- NOTE | 2019-05-21 17:43 | NUR ---
Pal Spiritual cAre note: Asked by staff not to engage with pt. Letterer services will remain available.
--- NOTE | 2019-05-21 17:55 | NUR ---
SHIFT SUMMARY NOTE: PATIENT WAS VERBALLY ABUSIVE DURING THIS SHIFT AND THEN WOULD CHANGE TO SAYING THAT HE "WAS SORRY", NONCOMPLIANT WITH TREATMENT, UP IN CHAIR FOR A SHORT PERIOD OF TIME, WORKED WITH PT AND OT, SPEECH IN FOR SWALLOW EVAL., PATIENT NOW ON MECHANICAL SOFT GROUND DIET, EATS WELL WITH ASSISTANCE, NEEDS TO SIT AT A 90 DEGREE ANGLE, NO PROBLEM SWALLOWING, BUT NEEDS COACHING, ALSO ON NECTAR THICK LIQUIDS, VSS, RECEIVED 100 MCG FENTANYL ONCE, AND STARTED TO HALLUCINATE BRIEFLY, NOW RECEIVING ZYPREXA, PRECEDEX OFF, FOR DETAILS SEE SHIFT ASSESSMENT DOCUMENTATION AND NURSES NOTES, CALL LIGHT IN REACH, WILL CONTINUE TO MONITOR.
--- NOTE | 2019-05-21 19:00 | NUR ---
ASSUMED CARE ASSUMED CARE OF PATIENT. AWAKE AND ALERT. FREQUENTLY CALLING OUT "HELP!" AND "I NEED WATER." ORIENTED TO SELF, PLACE, AND MONTH/YEAR, BUT NOT TO DATE/TIME. OCCASIONAL CONFUSED AND REPETITIVE CONVERSATION. MOVES SELF RESTLESSLY IN BED. MOSTLY COOPERATIVE, BUT NOW WHEN INCREASINGLY ANXIOUS. CALMS DOWN SLIGHLTY WITH REASSURANCE, BUT QUICKLY BECOMES AGITATED AGAIN. MONITOR SHOWS NSR WITH BBB, RATE 90s. O2 @ 3LNC AT THIS TIME. RESPIRATIONS TACHYPNEIC, ESPECIALLY WHEN AGITATED. OCCASIONAL COUGH PRODUCTIVE OF THICK WHITE SPUTUM. USES YANKAUER TO SUCTION MOUTH. ABD SEVERELY DISTENDED. TOLERATING NECTAR-THICK FLUIDS AND REPEATEDLY ASKS FOR MORE. HIDALGO PATENT AND DRAINING YELLOW URINE TO GRAVITY. BLE LEG WOUNDS NOTED WITH DRSGS INTACT. MEPILEX INTACT TO COCCYX. INCONTINENT OF LOOSE STOOL WITH SOME WHOLE FOODS NOTED. PICC LINE TO NATALIE. REMAINS IN DROPLET/CONTACT ISOLATION FOR MRSA. SEE SHIFT ASSESSMENT FOR FULL ASSESSMENT.
--- NOTE | 2019-05-21 22:40 | NUR ---
AGITATION PT WITH INCREASED ANXIETY AND AGITATION. THRASHING IN BED AND CRYING. FREQUENTLY CRYING OUT "PLEASE GOD, FORGIVE ME!" UNCCOPERATIVE WITH CARE AT THIS TIME. REMOVING CPAP AND TELEMETRY LEADS. DOES NOT CALM WITH REASSURANCE. CALL TO DR. PAMELLA ACE- NEW ORDERS RECEIVED AT THIS TIME.
--- NOTE | 2019-05-21 23:07 | NUR ---
PRECEDEX PRECEDEX RESTARTED AT THIS TIME @ 1MCG/KG/HR. ALSO MEDICATED WITH ZYPREXA ZYDIS 5MG PO AT THIS TIME. CPAP BACK ON. PT STILL RESTLESS AND AGITATED. WILL CONTINUE TO MONITOR.
[2019-05-22 03:34] LABS: BASOPHILS ABSOLUTE AUTO 0.04 K/mm3 (0.00-0.23); BASOPHILS PERCENT AUTO 1 % (0-2); EOSINOPHILS PERCENT AUTO 3 % (0-6); Hematocrit 32.3 % (37.0-53.0); Hemoglobin 9.2 g/dL (13.5-17.5); IMMATURE GRAN ABSOLUTE AUTO 0.03 K/mm3 (0.00-0.10); IMMATURE GRAN PERCENT AUTO 0 % (0-1); LYMPHOCYTES ABSOLUTE AUTO 1.54 K/mm3 (0.84-5.20); LYMPHOCYTES PERCENT AUTO 18 % (21-46); MONOCYTES PERCENT AUTO 10 % (4-13); Mean Corpuscular HGB 23.6 pg (26.0-34.0); Mean Corpuscular HGB Conc 28.5 g/dL (31.5-36.5); Mean Corpuscular Volume 83 fL (80-100); Mean Platelet Volume 10.2 fL (9.1-12.4); NEUTROPHILS ABSOLUTE AUTO 5.97 K/mm3 (1.96-9.15); NEUTROPHILS PERCENT AUTO 68 % (41-73); Platelet Count 240 K/mm3 (150-400); RDW Coefficient Variation 21.8 % (11.7-14.2); RDW Standard Deviation 65.8 fL (35.1-46.3); White Blood Cell Count 8.78 K/mm3 (4.00-11.30)
[2019-05-22 03:49] LABS: Anion Gap 5 mmol/L (6-16); Blood Urea Nitrogen 38 mg/dL (8-24); Bun/Creatinine Ratio 43.7 (12.0-20.0); CO2, Blood 39 mmol/L (21-32); Calcium, Blood 8.4 mg/dL (8.5-10.1); Chloride, Blood 105 mmol/L (98-108); Creatinine, Blood 0.87 mg/dL (0.60-1.20); Glomerular Filtration Rate >60 (60-); Glucose, Blood 104 mg/dL (70-99); Phosphorus, Blood 3.9 mg/dL (2.5-4.9); Potassium, Blood 3.4 mmol/L (3.5-5.5); Sodium, Blood 149 mmol/L (136-145)
--- NOTE | 2019-05-22 06:10 | NUR ---
SHIFT SUMMARY NO ACUTE CHANGES. PT CONTINUES TO BE ANXIOUS AND AGITATED WHEN AWAKE. EMOTIONALLY LABILE, VACILLATING BETWEEN TEARFUL AND ANGRY MOST OF TIME. PRECEDEX STARTED EARLIER IN SHIFT AND INFUSED BETWEEN 0.4-1MCG/KG/HR. NOW INFUSING @ 0.4MCG/KG/HR. MEDICATED WITH ADDITIONAL DOSE OF ZYPREXA WELL. REPOSITIONS SELF IN BED. MEDICATED WITH FENTANYL 75MCG IV X 2 DOSES FOR C/O 8/10 BACK PAIN WITH GOOD RELIEF PER PATIENT. ON CPAP WITH 4L O2 BLEED-IN. RESPIRATIONS EVEN AND UNLABORED. OCCASIONAL COUGH. VSS. CONTINUES WITH SB-SR WITH BBB, RATE 50s-70s. HIDALGO PATENT AND DRAINING SHERYL URINE. INCONTINENT OF LOOSE STOOL X 1 DURING NOC.
--- NOTE | 2019-05-22 09:50 | NUR ---
0715-ASSUMED CARE OF PT. PT IS SEDATED WITH PRECEDEX AT THIS TIME. OPENS EYES TO VOICE. PRECEDEX DRIP @ 0.3 MCG/KG/HR. AFEBRILE. 0745-PT SEEN BY DR. CIFUENTES. UPDATED HER OF PT'S STATUS. DECREASED PRECEDEX DRIP 0.1 MCG/KG/HR. 0830-PT WOKE UP STARTED RIPPING HIS CPAP OFF. PLACED PT NC 3LPM.
--- NOTE | 2019-05-22 10:50 | NUR ---
BROOK, MUSIC THERAPIST AT BEDSIDE PLAYING FOR THE PATIENT.
--- NOTE | 2019-05-22 13:04 | NUR ---
1100-PT SEEN BY DR. JF ACE AT THIS TIME. UPDATED HIM OF PT'S STATUS. KAY, PHYSICAL THERAPIST AT BEDSIDE WELL, HELPED PT TO THE CHAIR. 1300-PT WAS HELPED BACK TO BED AFTER HAVING A BED BATH. 1304-PT IS CURRENTLY SLEEPING AT THIS TIME.
--- NOTE | 2019-05-22 15:14 | NUR ---
FOUND PT STANDING UP LEANING ON THE SINK. PT IS FIXATED OF VOIDING. PT HAS NOT VOIDED SINCE HIDALGO CATH WAS DISCONTINUED. PT IS IMPLUSIVE. PT GOT OUT OF BED WITHOUT USING THE CALL LIGHT AND NOT CALLING FOR ASSISTANCE. PT STATED " I CAN WALK, I WAS SHOWING OFF." PT WAS ABLE TO AMBULATE WITH STEADIER GAIT THIS AFTERNOON THAN THIS MORNING. PT WANTED TO GO OUT OF THE HOSPITAL. PT HAS STATED "I'M GETTING CRAZY IN HERE." EXPLAINED TO HIM THAT HE IS NOT ALLOWED TO GET OUT OF BED WITHOUT HELP DUE TO FALL. DR. JF ACE HAD TALKED TO THE PATIENT WELL. CURRENTLY PT IS SITTING ON THE CHAIR.
--- NOTE | 2019-05-22 18:18 | NUR ---
SHIFT SUMMARY: PT IS ALERT AND ORIENTED. CONFUSED AT TIMES. PT IS IMPULSIVE AT TIMES. HE GOT OUT OF BED TO THE CHAIR TWICE TODAY. PT WAS MEDICATED FOR PAIN WITH FENTANYL. PT GETS ANXIOUS AT TIMES. PT WAS ABLE TO TOLERATE MEALS SERVED TO HIM.
--- NOTE | 2019-05-22 19:00 | NUR ---
ASSUMED CARE ASSUMED CARE OF PATIENT. AWAKE AND ALERT. WATCHING TV. CONTINUES TO BE EMOTIONALLY LABILE, VACILLATING BETWEEN ANXIOUS AND CRYING. SPEECH IS SLIGHTLY GARBLED. ANSWERS QUESTIONS APPROPRIATELY. ASSISTS WITH REPOSITIONING. DENIES C/O PAIN AT THIS TIME. MONITOR SHOWS NSR WITH BBB. REMAINS ON 4LNC. RESPIRATIONS EVEN AND UNLABORED AT REST. DYSPNEA NOTED WITH EXERTION. OCCASIONAL MOIST COUGH PRODUCTIVE OF WHITE SPUTUM. VOIDING WITHOUT DIFFICULTY. BLE WOUNDS WITH DRSGS D/I. PICC NOTED TO NATALIE. SEE SHIFT ASSESSMENT FOR FULL ASSESSMENT.
[2019-05-23 03:23] LABS: BASOPHILS ABSOLUTE AUTO 0.05 K/mm3 (0.00-0.23); BASOPHILS PERCENT AUTO 1 % (0-2); EOSINOPHILS ABSOLUTE AUTO 0.47 K/mm3 (0.00-0.68); EOSINOPHILS PERCENT AUTO 5 % (0-6); Hematocrit 35.8 % (37.0-53.0); Hemoglobin 10.1 g/dL (13.5-17.5); IMMATURE GRAN ABSOLUTE AUTO 0.06 K/mm3 (0.00-0.10); IMMATURE GRAN PERCENT AUTO 1 % (0-1); LYMPHOCYTES ABSOLUTE AUTO 1.91 K/mm3 (0.84-5.20); LYMPHOCYTES PERCENT AUTO 20 % (21-46); MONOCYTES ABSOLUTE AUTO 0.98 K/mm3 (0.16-1.47); MONOCYTES PERCENT AUTO 10 % (4-13); Mean Corpuscular HGB Conc 28.2 g/dL (31.5-36.5); Mean Corpuscular Volume 82 fL (80-100); NEUTROPHILS ABSOLUTE AUTO 6.11 K/mm3 (1.96-9.15); NEUTROPHILS PERCENT AUTO 64 % (41-73); Platelet Count 272 K/mm3 (150-400); RDW Coefficient Variation 21.6 % (11.7-14.2); RDW Standard Deviation 64.6 fL (35.1-46.3); Red Blood Cell Count 4.39 M/mm3 (4.30-5.90); White Blood Cell Count 9.58 K/mm3 (4.00-11.30)
[2019-05-23 03:40] LABS: Alanine Aminotransfer (ALT/SGP 80 U/L (12-78); Albumin, Blood 2.6 g/dL (3.4-5.0); Albumin/Globulin Ratio 0.4 (0.8-1.8); Alk Phos 74 U/L (50-136); Anion Gap 5 mmol/L (6-16); Aspartate Aminotrans (AST/SGOT 67 U/L (12-37); Bilirubin, Total 0.6 mg/dL (0.1-1.0); Blood Urea Nitrogen 27 mg/dL (8-24); Bun/Creatinine Ratio 35.4 (12.0-20.0); CO2, Blood 38 mmol/L (21-32); Calcium, Blood 8.8 mg/dL (8.5-10.1); Chloride, Blood 101 mmol/L (98-108); Creatinine, Blood 0.76 mg/dL (0.60-1.20); Globulin, Blood 5.8 g/dL (2.2-4.0); Glomerular Filtration Rate >60 (60-); Glucose, Blood 96 mg/dL (70-99); Phosphorus, Blood 3.6 mg/dL (2.5-4.9); Potassium, Blood 3.3 mmol/L (3.5-5.5); Sodium, Blood 144 mmol/L (136-145); Total Protein, Blood 8.4 g/dL (6.4-8.2)
--- NOTE | 2019-05-23 06:16 | NUR ---
SHIFT SUMMARY NO ACUTE CHANGES DURING NOC. CONTINUES TO BE EMOTIONALLY LABILE. ALSO CONTINUES TO BE RESTLESS AND ANXIOUS AT TIMES. UP TO CHAIR SEVERAL TIMES DURING SHIFT WITH 1-2 PERSON ASSIST- TOLERATED WELL. MEDICATED WITH FENTANYL 50MCG IV X 2 DOSES DURING NOC FOR C/O BLE PAIN. VSS. MONITOR SHOWS NSR WITH BBB, RATE 90s. VOIDING WITHOUT DIFFICULTY. FREQUENTLY ASKING FOR SNACKS AND DRINKS AND FREQUENTLY PUSHES LIMITS OF HOW MUCH HE CAN HAVE. REQUIRES FREQUENT REMINDERS TO SLOW DOWN WHEN EATING AND DRINKING.
--- NOTE | 2019-05-23 08:50 | NUR ---
AM NOTE ASSUMED CARE OF PT APROX 0700, PT IS A&Ox4, PT CAN BE ANXIOUS AT TIMES BUT HAS BEEN DOING WELL THIS MORNING. PT UP TO THE RECLINER CHAIR WITH 2 PERSON ASSIST. PT IS ON 4L NC WITH O2 SATS >95% WILL TRY TO TITRATE O2 PT TOLERATES. PT'S BP STABLE, 1+ EDEMA NOTED T/O PT'S BODY, BLE RED AND HARD WITH WOUNDS (SEE WOUND ASSESSMENTS/PICS IN CHART). L/S CLEAR T/O DIM IN THE BASES, PT HAS OCC MOIST PRODUCTIVE COUGH, PT IS ABLE TO SELF SUCTION. BT PRESENT AND HYPOACITVE, ABD IS VERY DISTENDED, FRIM BUT NONTENDER TO PALP, PT STATES THIS IS HIS NORMAL. CALL LIGHT IN REACH, BED IS LOCKED AND LOW WILL CONTINUE TO MONITOR.
--- NOTE | 2019-05-23 13:25 | NUR ---
REC'D REPORT FROM TALA BATISTA AND THIS RN IS NOW ASSUMING CARE OF PT.
--- NOTE | 2019-05-23 13:33 | NUR ---
SHEILA FROM CASE MANAGEMENT HERE TO DISCUSS DISCHARGE PLANNING WITH PT.
--- NOTE | 2019-05-23 15:44 | NUR ---
PT UPDATE: PT AWAITING TO MOVE TO NEW ROOM, INTO 347. AWAITING RN'S CALL FOR REPORT. PT CALLED ON THE CALL LIGHT, WHEN THIS RN ANSWERED THE CALL LIGHT, PT REPORTS HE DOES NOT NEED HELP, HOWEVER, THIS RN WALKED RIGHT INTO ROOM TO FIND THE PT PRISON OUT OF THE BED (THE BED ALARM HAD NOT YET TRIGGERED). PT ASSISTED INTO RECLINER AND ASSISTED WITH USING URINAL. PT REMAINS CONFUSED AND MAKES CONFUSED CONVERSATION.
--- NOTE | 2019-05-23 16:13 | NUR ---
CALLED RN AND LEFT MESSAGE WITH TALA MCRAE TO ATTEMPT TO GIVE REPORT ON THIS PT. AWAITING RETURN CALL.
--- NOTE | 2019-05-23 16:28 | NUR ---
REPORTED OFF TO TALA PERES, WHOM WILL ASSUME CARE OF PT ONCE HE TNX'S TO 347
--- NOTE | 2019-05-23 16:47 | NUR ---
PT TNX'D TO 347 VIA W/C BY TINY BUSTAMANTE. ALL PT'S BELONGINGS/CHART/MEDICAL MEDICATIONS SENT UP WITH CHART.
--- NOTE | 2019-05-23 17:34 | NUR ---
HANDOFF NOTE PT TRANSFERED FROM ICU TO [facility] FLOOR WNL. RECEIVED HANDOFF REPORT FROM ICU NURSE SAGAR. PT ON 4 LPM O2 HIGH FLOW. PT IMPULSIVE, BED ALARM ACTIVE. PT IS SALINE LOCKED W/PICC IN RUE. 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 MECH SOFT DIET, NO STRAWS, PT NEEDS SUPERVISED DURING MEALS - ENCOURAGED TO TAKE SMALL BITES. XRAY PERFORMED ON BOTH KNEES AFTER PT WAS TRANSFERED TO [facility] FLOOR.
--- NOTE | 2019-05-23 21:18 | NUR ---
PATIENT HAVING INCREASED AGITATION. CALLING OUT INTO THE HALLS AND BED EXIT ATTEMPTS. BED ALARM ACTIVATED.
--- NOTE | 2019-05-23 21:19 | NUR ---
PATIENT BED EXIT AND ATTEMPTING TO LEAVE ROOM. SECURITY CALLED AND CHARGE NURSE. PATIENT PUSHING CHAIR OUT DOOR. PATIENT STOPPED BEFORE REACHING DOOR. SECURITY AND CAPTAIN WAITER PRESENT AND PATIENT PUT BACK INTO BED. PATIENT HAVING INCREASE AGITATION. WILL CONTINUE TO MONITOR.
--- NOTE | 2019-05-23 22:04 | NUR ---
HOSPITALIST DR GUIDO ORDERED KATARZYNA VEST AND BILATERAL WRIST RESTRAINTS FOR INCREASED AGITATION, PATIENT AND STAFF SAFETY. PATIENT IS A FALL RISK, PULLING AT LINES. SECURITY PRESENT TO PUT ON KATARZYNA VEST. CALL LIGHT IN REACH. WILL CONTINUE TO MONITOR.
--- NOTE | 2019-05-23 22:10 | NUR ---
PATIENT CONTINUES TO YELL OUT INTO GUILLORY. PATIENT REPOSITIONED. WILL CONTINUE TO MONITOR. TELEMETRY LEAD BACK ON. CALL LIGHT IN REACH. WILL CONTINUE TO MONITOR.
--- NOTE | 2019-05-23 22:50 | NUR ---
PATIENT PULLED AND BROKE TELEMETRY LEADS OFF. PATIENT SPITTING AT STAFF. REPLACEMENT LEADS BACK IN PLACE. BILATERAL SOFT WRIST RESTRAINTS ADJUSTED. WILL CONTINUE TO MONITOR.
--- NOTE | 2019-05-23 23:02 | NUR ---
PATIENT REST AND THAN STARTS TO YELL AND CURSE. TV PUT ON FOR PATIENT. WILL CONTINUE TO MONITOR.
--- NOTE | 2019-05-24 01:46 | NUR ---
PATIENT YELLING AND SCREAMING WITH INCREASED AGITATION. PATIENT NOT ABLE TO REORIENT AT THIS TIME. WILL CONTINUE TO MONITOR. KATARZYNA VEST AND BILATERAL SOFT WRIST RESTRAINTS FOR PATIENT AND STAFF SAFETY.
--- NOTE | 2019-05-24 01:50 | NUR ---
PATIENT VERBALLY THREATENING STAFF THAT HE WILL HARM THEM WHEN RELEASED. WILL CONTINUE TO MONITOR.
--- NOTE | 2019-05-24 03:47 | NUR ---
SHIFT SUMMARY PATIENT HAD INCREASED AGITATION T/O THE SHIFT. HE DEMANDED A SHOWER AND YELLED AT STAFF. PATIENT RECEIVED SHOWER AND MEDICATION ADMINISTRATION COMPLETE BEFORE PATIENT UP PUSHING A CHAIR AND TRYING TO EXIT ROOM. SECURITY AND CHARGE NURSE NOTIFIED. SEE NOTES. HOSPITALIST DR GUIDO ORDERED BILATERAL SOFT WRIST RESTRAINTS AND KATARZYNA VEST. PATIENT PULLED TELE LEADS OFF AND PULLED THEM APART. YELLED, SCREAMED, CURSED, AND VERBALLY THREATEN STAFF. AXOX 2 W/CONFUSION. NOT ABLE TO REORIENT. PICC NATALIE. CBG 114 AND SENIOR SYSTEMS PROGRAMMER REPORTED NSR 83. ON 4 L HFNC. RT IN AND SET UP CONTINUOUS PULSE OXIMETRY STATING 87-92%. REPORTED KNEE AND COCCYX PAIN AND IV FENTANYL 50 MCG GIVEN PER EMAR. BED IN LOWEST POSITION. WILL CONTINUE TO MONITOR UNTIL DAY SHIFT NURSE ASSUMES CARE.
--- NOTE | 2019-05-24 06:16 | NUR ---
pt was vigorously shaking his arm when i was trying to get a blood pressure, using profanity, and threatening to kick me. He refused vitals signs
--- NOTE | 2019-05-24 10:53 | NUR ---
THIS NURSE WAS JUST OUTSIDE PT ROOM WHEN HE STOOD UP OUT OF BED AND WAS ATTEMPTING TO WALK TO THE [facility]. THE BED BLANKETS AND SHEETS WERE WRAPPED AROUND THE LEGS OF THE WALKER ALONG WITH THE O2 TUBING. THIS NURSE ENCOURAGED PT TO WAIT FOR HELP AND DURING THIS INTERACTION HE LOST HS BALANCE AND FELL TO THE FLOOR LANDING ON HIS BUTTOCKS. NO INJURIES WERE OBSERVED. PT THEN PROCEEDED TO CRAWL TO THE TOILET REFUSING ALL HELP. HE THEN USED THE SINK AND THE WALKER TO STAND UP AND SIT ON TOILET TO HAVE ANOTHER BM. HE WAS THEN ASSISTED TO TAKE A SHOWER AND WITH CLAEN CLOTHES AND BACK TO BED. EDUCATION WAS PROVIDED ON THE USE OF THE CALL LIGHT AND CALLING FOR HELP WHEN ASSISTANCE IS NEEDED. PT VERBALIZED AN UNDERSTANDING. BED ALARM AND YELLOW GOWN ARE IN PLACE. CHARGE NURSE NOTIFIED OF FALL. AND PT IS NOW RESTING IN BED.
--- NOTE | 2019-05-24 16:39 | NUR ---
SHIFT SUMMARY: PT IS A/O TO SELF AND SITUATION WITH CONFUSION, POOR IMPULSE CONTROL AND POOR SAFETY AWARENESS. PT HAD A NON INJURY FALL THIS MORNING AND HAS BEEN GOOD ABOUT CALLING FOR HELP ALTHOUGH HE STILL NEEDS REMINDERS FOR USING THE CALL LIGHT. PT CONTINUES TO USE THE WALKER WITH X 1 ASSIST TO THE TOILET. PT HAS BEEN INCONTINENT OF STOOL X 2 BUT USES URINAL APPROPRIATELY. PT WORKED WITH THERAPY TODAY. CXR WAS COMPLETED ORDERED AND PSYCH CONSULT WAS FAXED/TUBED TO ED. CBGS HAVE BEEN WNL WITH NO INSULIN COVERAGE NEEDED. PT HAS A GOOD APPETITE AND REQUIRES SET UP ONLY.
--- NOTE | 2019-05-24 20:15 | NUR ---
PATIENT TRANSFER FROM RN TO DEMOND EDGAR.
--- NOTE | 2019-05-25 05:48 | NUR ---
SHIFT SUMMARY PT AGITATED AT START OF SHIFT BUT WAS ABLE TO CALM DOWN AND EVENTUALLY GO TO SLEEP AND SLEEP THROUGH THE NIGHT. HE WORE CPAP WHILE SLEEPING C 6L O2 BLED IN. WILL SOMETIMES DESAT TO 86% OR SO BUT WILL GO BACK UP TO 90's. HAS A PRODUCTIVE COUGH AND WAS ABLE TO BRING UP SOME PHLEGM. BED ALARM IN USE. CALL LIGHT IN REACH.
[2019-05-25 08:13] LABS: BASOPHILS ABSOLUTE AUTO 0.04 K/mm3 (0.00-0.23); BASOPHILS PERCENT AUTO 1 % (0-2); EOSINOPHILS ABSOLUTE AUTO 0.32 K/mm3 (0.00-0.68); EOSINOPHILS PERCENT AUTO 4 % (0-6); Hematocrit 33.7 % (37.0-53.0); Hemoglobin 9.7 g/dL (13.5-17.5); IMMATURE GRAN ABSOLUTE AUTO 0.04 K/mm3 (0.00-0.10); IMMATURE GRAN PERCENT AUTO 1 % (0-1); LYMPHOCYTES ABSOLUTE AUTO 1.56 K/mm3 (0.84-5.20); LYMPHOCYTES PERCENT AUTO 22 % (21-46); MONOCYTES ABSOLUTE AUTO 0.78 K/mm3 (0.16-1.47); MONOCYTES PERCENT AUTO 11 % (4-13); Mean Corpuscular HGB Conc 28.8 g/dL (31.5-36.5); Mean Corpuscular Volume 80 fL (80-100); Mean Platelet Volume 9.5 fL (9.1-12.4); NEUTROPHILS ABSOLUTE AUTO 4.52 K/mm3 (1.96-9.15); NEUTROPHILS PERCENT AUTO 62 % (41-73); Platelet Count 239 K/mm3 (150-400); RDW Coefficient Variation 21.3 % (11.7-14.2); RDW Standard Deviation 61.7 fL (35.1-46.3); Red Blood Cell Count 4.21 M/mm3 (4.30-5.90); White Blood Cell Count 7.26 K/mm3 (4.00-11.30)
[2019-05-25 08:25] LABS: Anion Gap 2 mmol/L (6-16); Blood Urea Nitrogen 16 mg/dL (8-24); Bun/Creatinine Ratio 22.4 (12.0-20.0); CO2, Blood 39 mmol/L (21-32); Calcium, Blood 8.3 mg/dL (8.5-10.1); Chloride, Blood 101 mmol/L (98-108); Creatinine, Blood 0.71 mg/dL (0.60-1.20); Glomerular Filtration Rate >60 (60-); Glucose, Blood 102 mg/dL (70-99); Magnesium, Blood 1.9 mg/dL (1.6-2.4); Potassium, Blood 3.5 mmol/L (3.5-5.5); Sodium, Blood 142 mmol/L (136-145)
--- NOTE | 2019-05-25 16:46 | NUR ---
SHIFT SUMMARY: PT HAS BEEN A/O X 3 TODAY AND VERY PLEASANT AND COOPERATIVE WITH CARE. PT CALLED FOR HELP APPROPRIATELY FOR TOILETING AND CONTINUES TO BE A X 1 ASSIST FOR TRANSFERS AND TOILETING. PT WAS UP TO CHAIR FOR MEALS AND CBGS WERE WNL AND NO INSULIN COVERAGE WAS NEEDED. PT IS WATCHING TV AND HAS CALL LIGHT IN REACH.
--- NOTE | 2019-05-26 06:29 | NUR ---
SHIFT SUMMARY PT HAS BEEN CALM AND COOPERATIVE FOR THE MOST PART. SOMETIMES HE DOESN'T LIKE THE REDIRECTION. WORE HIS CPAP 6-7L BLED IN. C/O PAIN IN KNEES AND MEDICATED PER EMAR. HE WAS ABLE TO SLEEP ON AND OFF BUT GOT UP TO CHAIR THEN BACK TO BED WITH HELP. BED ALARM IN USE.
--- NOTE | 2019-05-26 07:23 | NUR ---
PT IS VERY AGITATED THIS MORNING YELLING ABOUT NAZIS AND REFUSING PEOPLE IN HIS ROOM. HE IS NOT REDIRECTABLE AND HAS ASKED EVERYONE TO LEAVE HIM ALONE. HE REFUSED ALL MEDICATIONS AND BLOOD SUGAR WELL V/S. BED ALARM IS SET AND PT IS SITTING UP ON SIDE OF BED.
--- NOTE | 2019-05-26 08:14 | NUR ---
PT IS MUCH CALMER NOW AND COOPERATIVE WITH CARE. HE TOOK ALL OF HIS MORNING MEDS AND CBG WAS WNL. P[T REQUESTED TO GET UP TO RECLINER AND THIS NURSE ASSISTED HIM TO DO SO WITH A FWW. HE IS NOW RESTING IN HIS RECLINER WATCHING TV.
--- NOTE | 2019-05-26 16:58 | NUR ---
SHIFT SUMMARY: AFTER THIS PT BEING UPSET THIS MORNING PT CALMED DOWN AND WAS ABLE TO BE RE-DIRECTED. PT HAS NAPPED ON AND OFF TODAY BUT WHEN HE AWAKES HE IS STILL HYPERFOCUSED ON HIS TIME IN RESTRAINTS CHARGE NURSE WAS NOTIFIED AND PT ADVOCATE CAME AND SPOKE WITH PT AND HIS FEELINGS WERE VALIDATED. PT CALLS FOR HELP WHEN NEEDED AND CONTINUES TO BE CONTINENT OF B/B.
--- NOTE | 2019-05-26 17:02 | NUR ---
Farshad complained about some of his care here. The patient Advocate has been to see him. He also asked for prayer and a rosary. He became tearful during prayer, and told me he reaaly wants to go home to [place] to be with family. He also states that he has now quit drinking and using drugs. He was appreciaitve of prayer and encouragement. I will remain available.
--- NOTE | 2019-05-26 22:31 | NUR ---
TRISTON FROM [facility] SAY TRANSPORT WILL LIKELY BE AVAILABLE AT 0500.
--- NOTE | 2019-05-27 05:48 | NUR ---
SUMMARY: PT IS ORIENTED TO SELF AND SURROUNDINGS BUT WAS CONFUSED TO EVENT AND DENIED METH USE. HE WAS ADAMENT WE "HAD IT ALL WRONG". HE IS FORGETFULL, CALLS FREQUENTLY FOR NONACUTE NEEDS AND IS VERY IMPATIENT. IF CARE IS DELAYED FOR ANY AMOUNT OF TIME HE BECOMES QUICKLY AGGITATED AND VERBALLY ABUSIVE. HE'S MADE THREATS TO "HAVE STAFF FIRED", CALLED THE BRIM PRESSER "A SPOILED BRAT" AND SAID HE "IS THE PATIENT SO IS ALWAYS RIGHT". STAFF ATTEMPTED TO PROVIDE EXPLANATIONS, RATIONALIZE W/PT AND DEFUSE HIS ESCALATED BEHAVIOR IT OCCURED BUT HE IS VERY CONTAKEROUS AND UNREASONABLE AT TIMES. PT WAS MEDICATED W/ ZYPREXA PRN X1 FOR AGGITATION/SLEEP AND TYLENOL PRN FOR TOLERABLE CONTROL OF LEG PAIN. LEGS CONTINUE SWOLLEN, RED AND DISCOLORED W/DRY FLAKEY SKIN. HE'S A 1P ASSIST W/FWW FROM BED TO RECLINER AND MOVES BETWEEN THEM OFTEN. URINAL ASSIST IS REQUIRED AND PT VOIDS OFTEN. HE REMAINS ON 4L O2 VIA NC [place] OR 9L O2 BLEED IN VIA CPAP WHILE SLEEPING. MOIST COUGH PERSISTS AND LS ARE COARSE AND WHEEZEY AT TIMES. RT PROVIDED BX MEDS. PICC TO NATALIE IS SL AND WOULDN'T DRAW AM LABS. NO ACUTE CHANGES, VSS/AFEBRILE. WCTM AND REPORT TO DAY RN.
[2019-05-27 06:06] LABS: Anion Gap 2 mmol/L (6-16); Blood Urea Nitrogen 17 mg/dL (8-24); Bun/Creatinine Ratio 21.5 (12.0-20.0); CO2, Blood 41 mmol/L (21-32); Calcium, Blood 8.7 mg/dL (8.5-10.1); Chloride, Blood 99 mmol/L (98-108); Creatinine, Blood 0.79 mg/dL (0.60-1.20); Glomerular Filtration Rate >60 (60-); Glucose, Blood 106 mg/dL (70-99); Magnesium, Blood 1.7 mg/dL (1.6-2.4); Potassium, Blood 3.8 mmol/L (3.5-5.5); Sodium, Blood 142 mmol/L (136-145)
--- NOTE | 2019-05-27 17:47 | NUR ---
SHIFT SUMMARY: PT IS A/O AT BASELINE TODAY WITH NO C/O PAIN. HE IS PLEASANT AND COOPERATIVE WITH CARE WITH NO BEHVAIORS OBSERVED ALL SHIFT. PT WAS UP TO CHAIR FOR MEALS AND CONTINUES TO HAVE A GOOD APPETITE. PT WAS ASSISTED TO SHOWER AND BED LINENS WERE CHANGED. PT CONTINUES TO USE THE CPAP WHILE SLEEPING AND NC WHILE AWAKE. PICC LINE DRESSING WAS CHANGED THE PREVIOUS ONE HAD COME OFF. IV ABO INFUSED WITH NO ISSUES NOTED AND PT REPORTS HE FEELS MUCH BETTER TODAY. PT CALLS FOR HELP APPROPRIATELY AND REMAINS CONTINENT OF BOWEL AND BLADDER.
--- NOTE | 2019-05-28 05:27 | NUR ---
SHIFT SUMMARY: DEBBIE HAS BEEN COOPERATIVE MOST OF THE SHIFT. THERE WAS A PERIOD OF TIME WHERE HE WAS IRRITABLE ABOUT HIS SITUATION AND HOW THERE WAS A HURRICAINE NEAR HIS HOME TOWN WHERE HE GREW UP. THIS HAS STRESSED HIM OUT SO HE WAS VERY IRRITABLE AND STARTED TO COMPLAIN ABOUT EVERYTHING. EVENTUALLY HE APPLOGIZED ABOUT IT ALL STATING HE WAS JUST STRESSED OUT. OVER ALL HE HAS BEEN DOING WELL ALL NIGHT. HE DID HAVE A PERIOD OF DECREASE OXYGEN PER JAKE RN COVERING FOR ME AT LUNCH. SHE HAD TO TURN HIS OXYGEN UP TO 9 LITERS THROUGH THE CPAP, AND CALL RT. HE WAS NOT SUSTAINING ON THE LOW 80'S BUT KEPT DROPPING TO 84% THEN BACK UP LIKE A ROLLER COASTER. ONCE BACK HE FROM LUNCH HE WAS STILL DOING THIS BUT WOULD ONLY DROP A TIME OR TWO. HE THEN GOT UP AND WENT TO THE BATHROOM HAVING A BOWEL MOVMENT AND URINATED, SITTING BACK IN THE RECLEINER INSTEAD OF THE BED. CPAP ON AND HE STAYED ABOVE LEVELS SLEEPING REALLY WELL THE REST OF THE NIGHT. WILL REPORT TO DAY SHIFT RN.
--- NOTE | 2019-05-28 18:31 | NUR ---
SHIFT SUMMARY PT TITRATED TO 4L VIA NC THIS AM, AT START OF SHIFT PT WAS ONL 9L VIA CPAP. O2 SATS HAVE REMAINED >93%, CONT PULSE OX IN PLACE. PT IS A&O X 4, COOPERATIVE WITH CARE. PT IS MOSTLY APPROPRIATE TOWARDS STAFF UNLESS HE HAS TO URINATE, THEN HE BECOMES VERBALLY ABUSIVE AND DEMANDING TOWARDS STAFF. HANGAR REP BY TODAY TO EVAL PT FOR BILATERAL KNEE BRACES -- TO ARRIVE SUNDAY. NO OTHER CHANGES TO REPORT. WILL CONT TO MONITOR AND PROVIDE CARE UNTIL PRESUMED BY ONCOMING RN.
--- NOTE | 2019-05-29 04:48 | NUR ---
SHIFT SUMMARY PT WAS SHOWERED THIS SHIFT. PT IS COOPERATIVE WITH CARE. PT HAD DID WAKE UP FROM SLEEP AGITATED. PT WAS GIVEN ZYPREXA PER EMAR. PT WAS ABLE TO SLEEP IN CHAIR. PT DOES BECOME SOB WITH EXERTION. PT CURRENTLY SLEEPING IN CHAIR WITH CPAP IN NO DISTRESS. PT CALLS OUT INTO HALLWAY FOR ASSISTANCE INSTEAD USING CALL LIGHT. CALL LIGHT IN REACH.
--- NOTE | 2019-05-29 17:41 | NUR ---
PT AOX4 AND COOPERATIVE OF CARE. PT IS A ONE PERSON ASSIST WITH FRONT WHEEL WALKER. PT CALLING APPROPRIATELY AND WAS ABLE TO TRIM FACIAL HAIR UP ON HIS OWN TODAY. WILL CONTINUE TO MONITOR AT THIS TIME NO DISTRESS NOTED.
--- NOTE | 2019-05-30 05:33 | NUR ---
05/30/19 0535 PT SLEEPING WELL THIS SHIFT. RN HAD APPLIED CPAP AT 2215 BUT PT REMOVED IT AFTER A COUPLE OF HOURS PER INSPECTOR PROCESS. STOOD TO VOID SEVERAL TIMES THIS SHIFT. PT INSISTED TO REMAIN IN LOUNGE CHAIR WITH LEGS ELEVATED THIS SHIFT. OFFERED TO ASSIST HIM TO BED BUT DECLINED. STATES HE SLEEPS BETTER IN THE CHAIR. LOUNGE CHAIR RECLINES TO ELEVATE HIS LEGS. STABLE VITALS AND HEART MONITOR.
[2019-05-30] MEDS ORDERED: OLAN5A MM (11:35)
[2019-05-30] MEDS ORDERED: ALBU90OI INH (11:44)
--- NOTE | 2019-05-30 19:18 | NUR ---
PT DISCHARGED AT 1845. PT RECIEVED KNEE BRACES BILATERALLY WHICH WERE FITTED TODAY AND HAD A FOUR WHEEL WALKER FOR AMBULATION BROUGHT TO HIM PRIOR TO DISCHARGE. PT HAS BEEN VERY LOUD AND VOCAL ALL DAY AT TIMES JOKING OR ACTING IRRITATED WITH HIS NURSING STAFF. PT HAS WANTED TO LEAVE MOST OF THE DAY. PERSONAL BELONGINGS WERE COLLECTED AND HAD TO MAKE SURE PT DID NOT TAKE THINGS WHICH DID NOT BELONG TO HIM. PT REQUESTED TO BE TAKEN BY TAX[place] TO THE [place] ER TO GET HIS CAR. TAXI WAS ARRANGED THROUGH HOSPITAL. PAPERS WERE REVIEWED AND EDUCATIONAL MATERIAL SENT WITH PT. PICC LINE REMOVED PRIOR TO DISCHARGE. PT WAS ESCORTED VIA WHEEL CHAIR TO [facility] WITH ALL BELONGINGS.
== END 2019-05-30 18:51 | disposition home or self-care (01) | DRG 207 ==
LOC: ER 14:33 → PCU 14:34 → ICUE 05-15 11:50 → MEDS 05-15 12:20 → ICUE 05-15 12:20 → MEDS 05-23 16:45 → ENPENDDIS 05-30 08:31 → MEDS 05-30 18:51
PROVIDERS: Emergency Medicine; Internal Medicine; Internal Medicine Critical Care Medicine; Internal Medicine Pulmonary Disease; ADMIT Internal Medicine
PROC: 5A09357 Assistance with Respiratory Ventilation, Less than 24 Consecutive Hours, Continuous Positive Airway Pressure (ICD-10-PCS; principal; 2019-05-15)
PROC: 5A1955Z Respiratory Ventilation, Greater than 96 Consecutive Hours (ICD-10-PCS; 2019-05-15)
PROC: 0BH18EZ Insertion of Endotracheal Airway into Trachea, Via Natural or Artificial Opening Endoscopic (ICD-10-PCS; 2019-05-15)
DX: J96.22 Acute and chronic respiratory failure with hypercapnia (principal); G92 Toxic encephalopathy; I50.43 Acute on chronic combined systolic (congestive) and diastolic (congestive) heart failure; E66.2 Morbid (severe) obesity with alveolar hypoventilation; Z68.42 Body mass index [BMI] 45.0-49.9, adult; J95.830 Postprocedural hemorrhage of a respiratory system organ or structure following a respiratory system procedure; I11.0 Hypertensive heart disease with heart failure; J96.21 Acute and chronic respiratory failure with hypoxia; Z79.4 Long term (current) use of insulin; Z79.82 Long term (current) use of aspirin; K21.9 Gastro-esophageal reflux disease without esophagitis; J44.9 Chronic obstructive pulmonary disease, unspecified; F43.10 Post-traumatic stress disorder, unspecified; E11.40 Type 2 diabetes mellitus with diabetic neuropathy, unspecified; E78.5 Hyperlipidemia, unspecified; F15.10 Other stimulant abuse, uncomplicated; E11.649 Type 2 diabetes mellitus with hypoglycemia without coma; E11.65 Type 2 diabetes mellitus with hyperglycemia; E87.70 Fluid overload, unspecified; E87.6 Hypokalemia; R45.1 Restlessness and agitation; Z88.0 Allergy status to penicillin; M17.9 Osteoarthritis of knee, unspecified; J20.2 Acute bronchitis due to streptococcus; Z91.19 Patient's noncompliance with other medical treatment and regimen
CPT/HCPCS: 31500; 31720; 36415; 36569; 36600; 51702; 71045; 71046; 73562-LT; 73562-RT; 80048; 80053; 80069; 81001; 82803; 82947; 83605; 83735; 83880; 84100; 84132; 84145; 84443; 84478; 84484; 85014; 85018; 85025; 87040; 87070; 87077; 87147; 87186; 87205; 92526; 92610; 93005; 93010; 94002; 94003; 94640; 94660; 94760; 94761; 94762; 96361; 96361-59; 96365-59; 96372; 96375; 96376; 97110; 97116; 97162; 97167; 97530; 97535; 99285-25; C1751; C9113; G0378; G0480; J0696; J1265; J1650; J1940; J2060; J2704; J3010; J3480; J7030; J7040; J7042; J7050; J7120

== ENCOUNTER 2019-06-02 14:29 | Emergency (ER) | payer MEDICARE ==
[~2019-06-02] VITALS: Ht 154.9 cm; Wt 133.8 kg
[~2019-06-02 14:29] MED LIST changes: +ATOR40TA PO; +Aspirin EC81 MG PO; +Docusate S50 MG/5 ML PT; +Ferrous Sulfat325 MG PO; +K-Dur20 MEQ PO; +OLAN5A MM; +OMEPRAZOLE MAGN20 MG PO; +Vitamin D2000 UNIT PO
[2019-06-02 15:15] LABS: BASOPHILS ABSOLUTE AUTO 0.04 K/mm3 (0.00-0.23); BASOPHILS PERCENT AUTO 1 % (0-2); EOSINOPHILS ABSOLUTE AUTO 0.43 K/mm3 (0.00-0.68); EOSINOPHILS PERCENT AUTO 5 % (0-6); Hematocrit 35.6 % (37.0-53.0); Hemoglobin 10.5 g/dL (13.5-17.5); IMMATURE GRAN ABSOLUTE AUTO 0.02 K/mm3 (0.00-0.10); IMMATURE GRAN PERCENT AUTO 0 % (0-1); LYMPHOCYTES ABSOLUTE AUTO 1.44 K/mm3 (0.84-5.20); LYMPHOCYTES PERCENT AUTO 17 % (21-46); MONOCYTES ABSOLUTE AUTO 1.06 K/mm3 (0.16-1.47); MONOCYTES PERCENT AUTO 13 % (4-13); Mean Corpuscular HGB 23.2 pg (26.0-34.0); Mean Corpuscular HGB Conc 29.5 g/dL (31.5-36.5); Mean Corpuscular Volume 79 fL (80-100); NEUTROPHILS ABSOLUTE AUTO 5.37 K/mm3 (1.96-9.15); NEUTROPHILS PERCENT AUTO 64 % (41-73); RDW Coefficient Variation 21.6 % (11.7-14.2); RDW Standard Deviation 62.5 fL (35.1-46.3); Red Blood Cell Count 4.53 M/mm3 (4.30-5.90); White Blood Cell Count 8.36 K/mm3 (4.00-11.30)
[2019-06-02 15:31] LABS: Alanine Aminotransfer (ALT/SGP 44 U/L (12-78); Albumin/Globulin Ratio 0.5 (0.8-1.8); Alk Phos 66 U/L (50-136); Anion Gap 4 mmol/L (6-16); Aspartate Aminotrans (AST/SGOT 37 U/L (12-37); Bilirubin, Total 0.3 mg/dL (0.1-1.0); Blood Urea Nitrogen 26 mg/dL (8-24); Bun/Creatinine Ratio 26.3 (12.0-20.0); CO2, Blood 31 mmol/L (21-32); Calcium, Blood 8.6 mg/dL (8.5-10.1); Chloride, Blood 100 mmol/L (98-108); Creatinine, Blood 0.99 mg/dL (0.60-1.20); Ethanol (Alcohol), Blood, Med <3 mg/dL; Globulin, Blood 5.6 g/dL (2.2-4.0); Glomerular Filtration Rate >60 (60-); Glucose, Blood 129 mg/dL (70-99); Potassium, Blood 3.2 mmol/L (3.5-5.5); Sodium, Blood 135 mmol/L (136-145); Total Protein, Blood 8.6 g/dL (6.4-8.2)
[2019-06-02 15:33] LABS: Mean Platelet Volume 10.2 fL (9.1-12.4); Platelet Count 241 K/mm3 (150-400)
[2019-06-02 15:35] LABS: U Amphetamine Screen DETECTED; U Barbituate Screen Not Detected; U Benzodiazapine Screen Not Detected; U Buprenorphine Screen Not Detected; U Cannabinoids Screen Not Detected; U Cocaine Screen Not Detected; U Methadone Screen Not Detected; U Methamphetamine Screen DETECTED; U Opiates Screen Not Detected; U Oxycodone Screen Not Detected; U Phencyclidine Screen Not Detected; U Propoxyphene Screen Not Detected
[2019-06-02 15:57] LABS: Source, Urine Catheter
[2019-06-02 15:59] LABS: Bilirubin, Urine Neg (Neg); Blood, Urine 5+ (Neg); Glucose Qualitative, Urine Neg (Neg); Ketones, Urine Neg (Neg); Leukocyte Esterase, Urine Neg (Neg); Nitrite, Urine Neg (Neg); Protein, Urine 3+ (Neg); Specific Gravity, Urine 1.015 (1.003-1.022); Urobilinogen, Urine NORM (Normal)
[2019-06-02 16:12] LABS: Appearance, Urine Clear (Clear); Color, Urine Yellow (P-Yellow)
[2019-06-02 16:14] LABS: Bacteria Mod /hpf; Red Blood Cells, Urine TNTC /hpf (0-2); Squamous Epithelial Cells Not Seen /hpf (Few)
[2019-06-02] MEDS ORDERED: Bactrim Ds Tab1 EACH PO (16:45)
== END 2019-06-02 18:35 | disposition home or self-care (01) ==
LOC: ER 14:29
PROVIDERS: Physician Assistant
DX: N39.0 Urinary tract infection, site not specified (principal); F15.10 Other stimulant abuse, uncomplicated; I11.0 Hypertensive heart disease with heart failure; I50.9 Heart failure, unspecified; E11.40 Type 2 diabetes mellitus with diabetic neuropathy, unspecified; Z88.0 Allergy status to penicillin; Z88.8 Allergy status to other drugs, medicaments and biological substances; Z88.5 Allergy status to narcotic agent; Z88.1 Allergy status to other antibiotic agents; Z79.82 Long term (current) use of aspirin; Z79.899 Other long term (current) drug therapy
CPT/HCPCS: 36415; 51701; 71045; 80053; 81001; 83880; 84484; 85025; 87086; 93005; 93010; 99285-25; G0480

== ENCOUNTER 2019-06-05 01:04 | Emergency (ER) | payer MEDICARE ==
[~2019-06-05] VITALS: Ht 157.5 cm; Wt 133.8 kg
[~2019-06-05 01:04] MED LIST changes: +Bactrim Ds Tab1 EACH PO
== END 2019-06-05 03:49 | disposition home or self-care (01) ==
LOC: ER 01:04
DX: M54.5 Low back pain (principal); G89.29 Other chronic pain; F10.129 Alcohol abuse with intoxication, unspecified; I11.0 Hypertensive heart disease with heart failure; I50.9 Heart failure, unspecified; E11.40 Type 2 diabetes mellitus with diabetic neuropathy, unspecified; J44.9 Chronic obstructive pulmonary disease, unspecified; Z88.0 Allergy status to penicillin; Z88.6 Allergy status to analgesic agent; Z88.8 Allergy status to other drugs, medicaments and biological substances; Z88.5 Allergy status to narcotic agent; Z88.1 Allergy status to other antibiotic agents; Z79.899 Other long term (current) drug therapy; Z79.82 Long term (current) use of aspirin
CPT/HCPCS: 99283

== ENCOUNTER 2019-06-15 11:18 | Inpatient (IN) | payer OTHER ==
[~2019-06-15] VITALS: Ht 160 cm; Wt 139.9 kg
[2019-06-15 11:40] LABS: Calcium, Ionized (POC) 1.02 mmol/L (1.10-1.46); Chloride (POC) 94 mmol/L (98-108); Creatinine (POC) 0.9 mg/dL (0.8-1.3); Glucose (ISTAT POC) 124 mg/dL (70-99); Hemoglobin (POC) 11.6 g/dL (13.5-17.5); Potassium (POC) 3.1 mmol/L (3.5-5.5); Sodium (POC) 139 mmol/L (135-148); Total CO2 (POC) 36 mmol/L (21-32)
[2019-06-15 11:41] LABS: BASOPHILS ABSOLUTE AUTO 0.02 K/mm3 (0.00-0.23); BASOPHILS PERCENT AUTO 0 % (0-2); EOSINOPHILS ABSOLUTE AUTO 0.01 K/mm3 (0.00-0.68); EOSINOPHILS PERCENT AUTO 0 % (0-6); Hematocrit 34.9 % (37.0-53.0); Hemoglobin 10.3 g/dL (13.5-17.5); IMMATURE GRAN PERCENT AUTO 1 % (0-1); LYMPHOCYTES ABSOLUTE AUTO 0.94 K/mm3 (0.84-5.20); LYMPHOCYTES PERCENT AUTO 11 % (21-46); MONOCYTES ABSOLUTE AUTO 0.94 K/mm3 (0.16-1.47); MONOCYTES PERCENT AUTO 11 % (4-13); Mean Corpuscular HGB 23.5 pg (26.0-34.0); Mean Corpuscular HGB Conc 29.5 g/dL (31.5-36.5); Mean Corpuscular Volume 80 fL (80-100); Mean Platelet Volume 9.8 fL (9.1-12.4); NEUTROPHILS ABSOLUTE AUTO 6.57 K/mm3 (1.96-9.15); NEUTROPHILS PERCENT AUTO 77 % (41-73); NRBC ABSOLUTE 0.03 K/mm3 (0.00-0.02); NRBC Auto 0.3 /100 WBC (0.0-0.2); Platelet Count 185 K/mm3 (150-400); RDW Coefficient Variation 21.7 % (11.7-14.2); RDW Standard Deviation 63.1 fL (35.1-46.3); Red Blood Cell Count 4.39 M/mm3 (4.30-5.90); White Blood Cell Count 8.58 K/mm3 (4.00-11.30)
[2019-06-15] MEDS ORDERED: FERSU300 PO (11:52)
[2019-06-15] MEDS ORDERED: ASCO500 PO (11:53)
[2019-06-15] MEDS ORDERED: ATOR40TA PO (11:53)
[2019-06-15] MEDS ORDERED: Vitamin D2000 UNIT PO (11:53)
[2019-06-15] MEDS ORDERED: FURO40 PO (11:53)
[2019-06-15] MEDS ORDERED: Klor-Con 1010 MEQ PO (11:55)
[2019-06-15] MEDS ORDERED: DOCU100 PO (11:56)
[2019-06-15 12:02] LABS: Alanine Aminotransfer (ALT/SGP 61 U/L (12-78); Albumin, Blood 2.8 g/dL (3.4-5.0); Albumin/Globulin Ratio 0.5 (0.8-1.8); Alk Phos 82 U/L (50-136); Anion Gap 4 mmol/L (6-16); Aspartate Aminotrans (AST/SGOT 47 U/L (12-37); Bilirubin, Total 0.5 mg/dL (0.1-1.0); Blood Urea Nitrogen 12 mg/dL (8-24); Bun/Creatinine Ratio 15.5 (12.0-20.0); CO2, Blood 35 mmol/L (21-32); Calcium, Blood 7.8 mg/dL (8.5-10.1); Chloride, Blood 99 mmol/L (98-108); Creatinine, Blood 0.78 mg/dL (0.60-1.20); Globulin, Blood 5.4 g/dL (2.2-4.0); Glomerular Filtration Rate >60 (60-); Glucose, Blood 122 mg/dL (70-99); Potassium, Blood 3.2 mmol/L (3.5-5.5); Sodium, Blood 138 mmol/L (136-145); Total Protein, Blood 8.2 g/dL (6.4-8.2); Troponin I 0.074 ng/mL (0.000-0.040)
[2019-06-15 12:28] LABS: Base Excess Venous 11.2 mmol/L; Bicarbonate Venous 33.2 mmol/L (24.0-30.0); PCO2 Venous 60.2 mmHg (38-42); PO2 Venous 179 mmHg (38-42); pH Blood Venous 7.39 (7.34-7.37)
--- NOTE | 2019-06-15 15:36 | NUR ---
ADMIT FROM ER REPORT RECEIVED FROM JILLIAN EDGAR. PT ARRIVED OFF BIPAP ON N/C ACCOMPANIED BY RN AND RT. PT AWAKE. YELLING HE WAS THIRSTY. HE WAS HUNGRY. HE WAS COLD. SLIDE TO NEW BED WITH 4 ASSIST AND SLIDER SHEET. PT REPLACED BACK ON BIPAP 13/04 AT 40%. UNTILL IMMEDIATE CARE PROVIDED. PT IMMEDIATELTY DRIFTED TO SLEEP. UPON AWAKENING TO START THE ADMIT QUESTIONAIRE PT REFUSED TO ANSWER QUESTIONS. BP ELEVATED. GIVEN HYDRALAZINE PER ORDER. NITROPASTE PLACED ON ABD. KRIDER CONTINUING TO INFUSE AT 5 MEQ/HR.CONTINUE POT.
[2019-06-15] MEDS ORDERED: NARCAN4 MG (16:47)
[2019-06-15 18:30] LABS: Source, Urine Catheter
[2019-06-15 18:33] LABS: Bilirubin, Urine Neg (Neg); Blood, Urine 5+ (Neg); Glucose Qualitative, Urine Neg (Neg); Ketones, Urine Neg (Neg); Leukocyte Esterase, Urine 1+ (Neg); Nitrite, Urine Neg (Neg); Protein, Urine 3+ (Neg); Specific Gravity, Urine 1.015 (1.003-1.022); Urobilinogen, Urine NORM (Normal)
[2019-06-15 18:42] LABS: Appearance, Urine Hazy (Clear); Color, Urine Yellow (P-Yellow)
[2019-06-15 18:46] LABS: Red Blood Cells, Urine TNTC /hpf (0-2); Squamous Epithelial Cells Few /hpf (Few)
[2019-06-15 18:47] LABS: Amorphous Mod (0-Heavy); Bacteria Mod /hpf
[2019-06-15 18:48] LABS: Yeast/Fungi Urine Rare /hpf
[2019-06-15 20:09] LABS: U Amphetamine Screen Not Detected; U Barbituate Screen Not Detected; U Benzodiazapine Screen Not Detected; U Buprenorphine Screen Not Detected; U Cannabinoids Screen Not Detected; U Cocaine Screen Not Detected; U Methadone Screen Not Detected; U Methamphetamine Screen Not Detected; U Opiates Screen Not Detected; U Oxycodone Screen Not Detected; U Phencyclidine Screen Not Detected; U Propoxyphene Screen Not Detected
[2019-06-16 05:59] LABS: BASOPHILS ABSOLUTE AUTO 0.03 K/mm3 (0.00-0.23); BASOPHILS PERCENT AUTO 0 % (0-2); EOSINOPHILS ABSOLUTE AUTO 0.09 K/mm3 (0.00-0.68); EOSINOPHILS PERCENT AUTO 1 % (0-6); Hematocrit 33.7 % (37.0-53.0); Hemoglobin 9.7 g/dL (13.5-17.5); IMMATURE GRAN ABSOLUTE AUTO 0.05 K/mm3 (0.00-0.10); IMMATURE GRAN PERCENT AUTO 1 % (0-1); LYMPHOCYTES PERCENT AUTO 18 % (21-46); MONOCYTES ABSOLUTE AUTO 1.54 K/mm3 (0.16-1.47); MONOCYTES PERCENT AUTO 18 % (4-13); Mean Corpuscular HGB Conc 28.8 g/dL (31.5-36.5); Mean Corpuscular Volume 80 fL (80-100); Mean Platelet Volume 9.6 fL (9.1-12.4); NEUTROPHILS ABSOLUTE AUTO 5.28 K/mm3 (1.96-9.15); NEUTROPHILS PERCENT AUTO 62 % (41-73); NRBC ABSOLUTE 0.02 K/mm3 (0.00-0.02); NRBC Auto 0.2 /100 WBC (0.0-0.2); Platelet Count 159 K/mm3 (150-400); RDW Coefficient Variation 22.5 % (11.7-14.2); RDW Standard Deviation 64.6 fL (35.1-46.3); Red Blood Cell Count 4.22 M/mm3 (4.30-5.90); White Blood Cell Count 8.49 K/mm3 (4.00-11.30)
[2019-06-16 06:20] LABS: Alanine Aminotransfer (ALT/SGP 52 U/L (12-78); Albumin, Blood 2.5 g/dL (3.4-5.0); Albumin/Globulin Ratio 0.5 (0.8-1.8); Alk Phos 72 U/L (50-136); Anion Gap 4 mmol/L (6-16); Aspartate Aminotrans (AST/SGOT 40 U/L (12-37); Bilirubin, Total 0.6 mg/dL (0.1-1.0); Blood Urea Nitrogen 17 mg/dL (8-24); Bun/Creatinine Ratio 17.4 (12.0-20.0); CO2, Blood 37 mmol/L (21-32); Calcium, Blood 7.8 mg/dL (8.5-10.1); Chloride, Blood 99 mmol/L (98-108); Creatinine, Blood 0.98 mg/dL (0.60-1.20); Globulin, Blood 4.9 g/dL (2.2-4.0); Glomerular Filtration Rate >60 (60-); Glucose, Blood 94 mg/dL (70-99); Magnesium, Blood 1.8 mg/dL (1.6-2.4); Potassium, Blood 3.5 mmol/L (3.5-5.5); Sodium, Blood 140 mmol/L (136-145); Total Protein, Blood 7.4 g/dL (6.4-8.2)
--- NOTE | 2019-06-16 06:39 | NUR ---
SHIFT SUMMARY PT HAS REMAINED AOX4 THROUGHOUT SHIFT. VSS. PT CONTINUES TO CALL OUT AND YELL INTO HALLWAY OPPOSED TO USING CALL LIGHT FOR ASSISTANCE. WHEN STAFF ATTEMPTS TO ASSIST, PT WILL TALK OVER STAFF MEMBERS AND YELL INNAPROPRIATELY. PT EDUCATED MULTIPLE TIMES ON APPROPRIATE BEHAVIOR AND ENCOURAGED TO EXPRESS NEEDS IN A PRODUCTIVE WAY. UPON INSTRUCTION, PT WILL OCASSIONALLY EXPRESS NEEDS APPROPRIATELY AND STATE APPRECIATION FOR STAFF ASSISTANCE, BUT REQUIRES FREQUENT RE-ORIENTATION TO THIS PROCESS. O2 SATS HAVE REMAINED >90% ON 1L VIA NASAL CANNULA OR ON BIPAP WITH FIO2 OF 30%. PT AMBULATES WITH STANDBY ASSIST TO BEDSIDE COMMODE AND TO CHAIR. REQUIRES MOTIVATION AND ENCOURAGEMENT TO PERFORM SELF-CARE TASKS. PT MEDICATED ONCE FOR PAIN THAT DECREASED WITH ORDERED MEDICATION AND PROVIDED WITH ICE PACK FOR PAIN IN ARM THAT DECREASED AFTER APPLICATION. NO OTHER CHANGES NOTED FROM INITIAL ASSESSMENT. WILL CONTINUE TO MONITOR AND REPORT TO ONCOMING SHIFT RN. BED IN LOW POSITION, CALL LIGHT IN REACH.
--- NOTE | 2019-06-16 12:41 | NUR ---
Echocardiogram completed.
--- NOTE | 2019-06-16 17:33 | NUR ---
SHIFT SUMMARY PT ALERT AND ORIENTED. VS STABLE. O2 SATS REMAIN ABOVE 90% ON 2L NC. PT USES BIPAP NEEDED FOR RESTING. PT CALLING OUT FREQUENTLY AND YELLING AT STAFF. PT ENCOURAGED TO USE CALL LIGHT AND EXPRESS NEEDS INSTEAD OF YELLING AT STAFF. PT ANXIOUS AT TIMES. PT ABLE TO TRANSFER TO BSC WITH SBA, BUT NEEDS ENCOURAGEMENT TO PROVIDE CARE FOR HIMSELF. PT STATES HE WORRIES ABOUT WHAT WILL HAPPEN TO HIM WHEN HE LEAVES THE HOSPITAL BECAUSE HE CAN'T TAKE CARE OF HIMSELF. SOCIAL SERVICE CONSULT HAS BEEN PLACED. WILL CONTINUE TO MONITOR AND REPORT TO ONCOMING RN. CALL LIGHT IN REACH.
[2019-06-17 03:53] LABS: BASOPHILS ABSOLUTE AUTO 0.03 K/mm3 (0.00-0.23); BASOPHILS PERCENT AUTO 0 % (0-2); EOSINOPHILS ABSOLUTE AUTO 0.17 K/mm3 (0.00-0.68); EOSINOPHILS PERCENT AUTO 2 % (0-6); Hematocrit 29.8 % (37.0-53.0); Hemoglobin 8.6 g/dL (13.5-17.5); IMMATURE GRAN ABSOLUTE AUTO 0.03 K/mm3 (0.00-0.10); IMMATURE GRAN PERCENT AUTO 0 % (0-1); LYMPHOCYTES ABSOLUTE AUTO 1.62 K/mm3 (0.84-5.20); LYMPHOCYTES PERCENT AUTO 22 % (21-46); MONOCYTES ABSOLUTE AUTO 1.15 K/mm3 (0.16-1.47); MONOCYTES PERCENT AUTO 15 % (4-13); Mean Corpuscular HGB 23.3 pg (26.0-34.0); Mean Corpuscular HGB Conc 28.9 g/dL (31.5-36.5); Mean Corpuscular Volume 81 fL (80-100); Mean Platelet Volume 9.6 fL (9.1-12.4); NEUTROPHILS ABSOLUTE AUTO 4.48 K/mm3 (1.96-9.15); NEUTROPHILS PERCENT AUTO 60 % (41-73); Platelet Count 176 K/mm3 (150-400); RDW Coefficient Variation 22.1 % (11.7-14.2); RDW Standard Deviation 65.4 fL (35.1-46.3); Red Blood Cell Count 3.69 M/mm3 (4.30-5.90); White Blood Cell Count 7.48 K/mm3 (4.00-11.30)
[2019-06-17 04:12] LABS: Percent Saturation 13.2 % (20.0-50.0)
[2019-06-17 04:18] LABS: Alanine Aminotransfer (ALT/SGP 41 U/L (12-78); Albumin, Blood 2.3 g/dL (3.4-5.0); Albumin/Globulin Ratio 0.5 (0.8-1.8); Alk Phos 63 U/L (50-136); Anion Gap 4 mmol/L (6-16); Aspartate Aminotrans (AST/SGOT 22 U/L (12-37); Bilirubin, Total 0.5 mg/dL (0.1-1.0); Blood Urea Nitrogen 25 mg/dL (8-24); Bun/Creatinine Ratio 23.8 (12.0-20.0); CO2, Blood 37 mmol/L (21-32); Calcium, Blood 7.8 mg/dL (8.5-10.1); Chloride, Blood 98 mmol/L (98-108); Creatinine, Blood 1.05 mg/dL (0.60-1.20); Globulin, Blood 4.6 g/dL (2.2-4.0); Glomerular Filtration Rate >60 (60-); Glucose, Blood 95 mg/dL (70-99); Potassium, Blood 3.4 mmol/L (3.5-5.5); Sodium, Blood 139 mmol/L (136-145); Total Protein, Blood 6.9 g/dL (6.4-8.2)
--- NOTE | 2019-06-17 05:16 | NUR ---
Shift Summary Pt with no acute changes this shift. Vitals remain stable, pt with no changes in oxygen demand, BIPAP compliant, tolerating NC when not sleeping. Pt remains alert and oriented. Continues to yell out instead of using call light to make needs known. Pt redirected regarding appropriate behavior. Throughout shift, pt progressingly becoming more appropriate in interactions with staff. Pt is in no apparent sign of distress. States "I am depressed. I don't know how to take care of myself when I leave the hosptial" SS consulted and following care. Villa patent and draining. Cath care provided. Stat lock moved to a more comfortable location of thigh, per pt. Pt able to sleep throughout much of this shift. See shift assessment for detailed systems assessment. Will continue to monitor and provide care until day RN assumes care.
--- NOTE | 2019-06-17 17:50 | NUR ---
SHIFT SUMMARY PT ALERT AND ORIENTED. VS STABLE. O2 SATS REMAIN ABOVE 90% ON 2L NC. PT USES BIPAP FOR SLEEPING. BP STABLE. PT ABLE TO TRANSFER TO BSC NEEDED WITH SBA. PT REPEATEDLY YELLING OUT. PT ENCOURAGED TO USE CALL LIGHT AND TREAT STAFF APPROPRIATELY. PT GIVEN A BED BATH TODAY. HIDALGO CATHETER PATENT AND DRAINING. REPORT CALLED TO MEDICAL FLOOR RN.
--- NOTE | 2019-06-17 18:15 | NUR ---
PT. ARRIVED TO FLOOR VIA RECLINER FROM PCU-9. A&O. MEDS AND MEALS GIVEN IN PCU BEFORE PT. TRANSFERREED TO ROOM. SETTLED PT IN BED AND WILL REPORT OFF TO NEXT SHIFT.
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
[2019-06-18 08:15] LABS: Hematocrit 29.5 % (37.0-53.0); Hemoglobin 8.7 g/dL (13.5-17.5); Mean Corpuscular HGB 23.6 pg (26.0-34.0); Mean Corpuscular HGB Conc 29.5 g/dL (31.5-36.5); Mean Corpuscular Volume 80 fL (80-100); Mean Platelet Volume 9.6 fL (9.1-12.4); Platelet Count 183 K/mm3 (150-400); RDW Coefficient Variation 22.2 % (11.7-14.2); RDW Standard Deviation 65.2 fL (35.1-46.3); Red Blood Cell Count 3.68 M/mm3 (4.30-5.90); White Blood Cell Count 7.58 K/mm3 (4.00-11.30)
[2019-06-18 08:49] LABS: Anion Gap -1 mmol/L (6-16); Blood Urea Nitrogen 19 mg/dL (8-24); Bun/Creatinine Ratio 19.9 (12.0-20.0); CO2, Blood 40 mmol/L (21-32); Calcium, Blood 8.3 mg/dL (8.5-10.1); Chloride, Blood 100 mmol/L (98-108); Creatinine, Blood 0.96 mg/dL (0.60-1.20); Glomerular Filtration Rate >60 (60-); Glucose, Blood 97 mg/dL (70-99); Potassium, Blood 3.7 mmol/L (3.5-5.5); Sodium, Blood 139 mmol/L (136-145)
[2019-06-18] MEDS ORDERED: ANTI-ITCH LOTI222 ML TOP (16:24)
[2019-06-18] MEDS ORDERED: Bactrim Ds Tab1 EACH PO (16:27)
--- NOTE | 2019-06-18 17:56 | NUR ---
PT. UP IN RECLINER EATING DINNER. NO NOTEABLE CHANGES THIS SHIFT. CALLS ABOUT EVERY 15 MINUTES FOR WATER, SNACKS, TO TURN HEAT UP OR TURN IT DOWN, WARM BLANKETS. TAKES MEDS WELL AND HAS DENIED PAIN T/O SHIFT. BLOOD SUGARS ARE IN THE LOW RANGE.
--- NOTE | 2019-06-19 03:50 | NUR ---
SHIFT SUMMARY PT IS ALERT AND ORIENTED. HE CONTINUES TO BE ANXIOUS AT TIMES AND EXHIBITS ATTENTION SEEKING BEHAVIOR. PT HAS HAD NO CLINICAL CHANGE THIS SHIFT. PT COMPOLIANT WITH BIPAP AND NC. CATHETER CARE WAS DONE THIS SHIFT, TO GOOD EFFECT. NO OTHER COMPLAINTS AT THIS TIME. WILL CONTINUE TO MONITOR.
--- NOTE | 2019-06-19 12:59 | NUR ---
NURSE IN TO FIX CALL LIGHT DISCONNECT IN PT'S ROOM. PT BECAME TEARY STATING THAT HE FEELS DEPRESSED AND CAN'T HANDLE TAKING CARE OF HIMSELF. STATES HE HAS NO MOTIVATION AND DOESNT WANT TO DO ANYTHING. NURSE QUESTIONED PT SUICIDE IDEATION, SEE PROCESS INTERVENTION. PT STATES THAT HE DOES NOT WISH TO HARM HIMSELF BUT THAT HE IS FEELING OVERWHELMED AND DEPRESSED. NURSE PROIDED THERAPEUTIC COMMINICATION AND ACTIVE LISTENING TO CALM PT AND HEAR CONCERS.
--- NOTE | 2019-06-19 17:06 | NUR ---
SHIFT SUMMARY PT AXO, COOPERATIVE WITH CARE THOUGH EMOTIONAL AT TIMES. PT CALLING VERY FREQUETLY ON THE CALL LIGHT FOR A LOT OF SMALL NEEDS. THIS NURSE EDUCATED PT ABOUT HOURLY ROUNDING AND USING THE CALL LIGHT FOR EMERGENT NEEDS AND THE CALLS HAVE SLOWED SIGNIFICANTLY. SEE NOTE ABOUT PT STAING THAT HE IS DEPRESSED. O2 SAT 96% ON 3L VIA NC. PT REMOVED NC AT TIMES THOUGH. VSS. NO CHANGES THIS SHIFT. BED IN LOW POSITION, CALL LIGHT WITHIN REACH THOUGH PT PREFERS TO SLEEP IN RECLINDER. UP TO WHEELCHAIR ONCE THIS SHIFT TO COME OUT TO HALLWAY FOR SOCIAL INTERACTION.
--- NOTE | 2019-06-20 03:42 | NUR ---
SHIFT SUMMARY PT IS ALERT, ORIENTED AND A STANDBY ASSIST. PT HAS HAD NO CLINICAL CHANGE AND CONTINUES TO URINATE WELL POST HIDALGO REMOVAL. PT CONTINUES TO BE ANXIOUS AND ATTENTION SEEKING. PT COMPLAINS OF BASELINE SOB. OXYGEN SATS HAVE BEEN ABOVE 90%. PT RECIEVED TYLENOL ONCE FOR GENERALIZED ACHES. NO OTHER COMPLAINTS AT THIS TIME. WILL CONTINUE TO MONITOR.
--- NOTE | 2019-06-20 06:18 | NUR ---
PT HAD RITA RED SMUDGES ON THE GILL PAD. PT'S STOOL FROM EARLIER TODAY WAS BROWN WITH NO TRACE OF BLOOD. THE HOSPITALIST WAS MADE AWARE. NO NEW ORDERS.
--- NOTE | 2019-06-20 18:01 | NUR ---
SUMMARY PT SITTING UP IN THE CHAIR AT THE BEDSIDE EATING HIS DINNER, PT HAS BEEN TO THE BED AND TO THE CHAIR SEVERAL TIMES TODAY, PT HAS BEEN PLEASANT AND COOPERATIVE T/O THE DAY, HAS BEEN USING HIS CALL LIGHT APPROPRIATELY, SPEECH HAS BEEN MANIC AND RAMBLING AT TIMES, VSS, NO ACUTE CHANGES, WILL CONT TO MONITOR
--- NOTE | 2019-06-21 04:15 | NUR ---
SHIFT SUMMARY AOX3. LS CLEAR, REPORTS SOB. PT HAS HX OF COPD, DOES NOT WEAR O2 AT HOME. PT IS ON 3L NC, SATS 96%. CONT PULSE OX. NO C/O NAUSEA. PAIN RATED 8/10 IN LEGS, "BURNING PAIN". IMPROVED WITH COLD WASHCLOTHS AROUND ANKLES AND ELEVATION. PT IS ECCHYMOTIC AND EDEMATOUS IN BLE, 3+. AC AND HS CHECKS, BG 130 AT HS. PT HAS PT ORDERED. VSS. REPORTS HX OF METH USE AND STATES HE IS HOMELESS LIVING OUT OF HIS VAN. [place]IBLE [place] IN [place].
--- NOTE | 2019-06-21 18:10 | NUR ---
PT HAS BEEN PLEASANT AND COOPERATIVE WITH CARE TODAY. NO ACUTE CHANGES NOTED THIS SHIFT, AWAITING PLACEMENT. WILL CONTINUE TO MONITOR AND REPORT TO ONCOMING RN.
--- NOTE | 2019-06-22 04:20 | NUR ---
SHIFT SUMMARY AOX3. PT REMAINS SOB W/ACTIVITY. 93-95 ON 3L O2. CONTINUOUS PULSE OX STILL ON. STILL RATING PAIN 8/10 IN LEGS, IMPROVES W/COLD RAGS OR ICE PACKS. NEW 22G IV IN L HAND. BG 130, NO INSULIN. VSS. PLAN TO GO TO [facility] THIS WEEK.
[2019-06-22 08:33] LABS: Hematocrit 32.5 % (37.0-53.0); Hemoglobin 9.5 g/dL (13.5-17.5); Mean Corpuscular HGB 23.4 pg (26.0-34.0); Mean Corpuscular HGB Conc 29.2 g/dL (31.5-36.5); Mean Corpuscular Volume 80 fL (80-100); Mean Platelet Volume 10.2 fL (9.1-12.4); Platelet Count 223 K/mm3 (150-400); RDW Standard Deviation 63.6 fL (35.1-46.3); Red Blood Cell Count 4.06 M/mm3 (4.30-5.90); White Blood Cell Count 9.38 K/mm3 (4.00-11.30)
[2019-06-22 08:46] LABS: Anion Gap 2 mmol/L (6-16); Blood Urea Nitrogen 23 mg/dL (8-24); Bun/Creatinine Ratio 24.4 (12.0-20.0); CO2, Blood 38 mmol/L (21-32); Calcium, Blood 8.7 mg/dL (8.5-10.1); Chloride, Blood 98 mmol/L (98-108); Creatinine, Blood 0.94 mg/dL (0.60-1.20); Glomerular Filtration Rate >60 (60-); Glucose, Blood 97 mg/dL (70-99); Potassium, Blood 4.7 mmol/L (3.5-5.5); Sodium, Blood 138 mmol/L (136-145)
--- NOTE | 2019-06-23 05:13 | NUR ---
SHIFT SUMMARY NO ASSESSMENT CHANGES. BG 107 SO NO INSULIN GIVEN. PAIN RATED 8/10 IN BLE'S, TYLENOL GIVEN @ 2300. C/O SOB, PT REFUSES TO KEEP NC AND CPAP ON DURING THE NIGHT. AWAITING PLACEMENT FOR DISCHARGE.
--- NOTE | 2019-06-23 18:23 | NUR ---
SHIFT SUMMARY PT HAS HAD ABDOMINAL PAIN THIS SHIFT. MAALOX ORDERED AND PT REPORTS DID NOT HELP. PT HAD AN INCONTINENT LOOSE STOOL THIS AFTERNOON AND TOOK A SHOWER AFTER. PT BURPING A LOT AND REPORTS FEELING BETTER WHEN HE DOES. PT DECLINED LUNCH AND EATING SOUP AND CRACKERS FOR DINNER. NO ACUTE CHANGES THIS SHIFT. PT HAS BEEN WEARING OXYGEN AND CONTINUOUS OXIMETER. WILL CONTINUE TO MONITOR AND REPORT TO ONCOMING RN. CALL LIGHT IN [place].
--- NOTE | 2019-06-24 05:40 | NUR ---
SUMMARY: PT A/OX4, SPECIFIES NEEDS AND CALLS APPROPRIATELY. UP W/ASSIST TO TOILET T/O NOCTE AND HE REFUSED BOWEL MEDS D/T DIARRHEA. ATTENDS CHANGED PRN. PT TOLERATED BIPAP MOST OF NOCTE W/3L O2 BLEED IN AND CONT BIOX INTACT BUT OFTEN REMOVES MASK BY SELF AND NOTICED TO DESAT TO SPO2 85%. LEGS REMAIN SWOLLEN, CALLOUSED, RED AND SCALEY. HE SLEEPS IN RECLINER W/LEGS ELEVATED. PT DENIED ANY CONT'D ABDO PAIN AND ONLY HAD NON-ACUTE NEEDS. VSS/AFEBRILE. NO ACUTE CHANGES. WCTM AND REPORT TO DAY RN.
--- NOTE | 2019-06-24 16:37 | NUR ---
SHIFT SUMMARY PT HAS HAD NO COMPLAINTS THIS SHIFT. PT REPORTS STOMACH HAS NOT HURT HIM AFTER LAST NIGHT WITH MULTIPLE BOWEL MOVEMENTS. PT AMBULATED IN GUILLORY TODAY AND TOLERATED IT WELL. NO ACUTE CHANGES THIS SHIFT. CALL LIGHT IN REACH. WILL CONTINUE TO MONITOR AND REPORT TO ONCOMING RN.
--- NOTE | 2019-06-25 05:24 | NUR ---
SHIFT SUMMARY: Pt t/f to room 356 around 9pm. Has been consistent about making needs known throughout the night. Has slept minimally through the night. Remained up in recliner entire night. Wore CPAP only the first part of the night and has since removed it and remained awake. 02 sat 93-94% on 3L via NC. SOB with exertion. BP 94/52- Metoprolol held. 100/75 upon recheck. Stool softeners held due to day time loose stools. 1 episode of urinary incontinence during noc. No c/o pain. No acute changes during the night. Call button within reach.
--- NOTE | 2019-06-25 18:54 | NUR ---
SHIFT SUMMARY NO ACUTE CHANGES. PATIENT DENIES PAIN, NAUSEA, AND SHORTNESS OF BREATH. PATIENT UP ONE ASSIST WITH TWO CANES OR FWW. PATIENT WORKED WITH PT TODAY. PATIETN BECAME AGITATED SOME POINTS DURING SHIFT BUT WAS ABLE TO BE REDIRECTED. CALL LIGHT IN REACH.
--- NOTE | 2019-06-25 21:06 | NUR ---
Pt was not being polite, started with c/o not knowing his weight, not getting help for michael care, feeling itchy. I offered him to have michael care done, then i told him lets get in the shower, like he stated he wanted, he was in the shower when he was brushing his teeth, i told him, lets wrap your IV, and he couldn't hear me say, lets wrap your IV 5+ times. "I wasn't meeting needs" is all i remember the moral was, something triggered him and he was using profanity and intimidating me by saying i put him in restraints, and was his enemy, he was yelling very loud name calling and the nurses showed up with security.
--- NOTE | 2019-06-25 21:39 | NUR ---
2105 THIS NURSE ENTERED ROOM AFTER PATIENT WAS HEARD YELLING AND CURSING LOUDLY FROM BATHROOM SHOWER, PT CONTINUED TO PHYSICALLY THREATEN THIS NURSE WITH HITTING, SPITING AND GRABING AT MOBILE SHOWER WHILE STATING, "YOU ARE ALL NAZI'S AND I SERVED IN [place] IN THE [employer] [facility]ARD". NOTE: [place] WAS OVER AND PATIENT TOO YOUNG TO HAVE EVER SERVED IN THIS ERA. THIS NURSE CALLED SECURITY FOR ASSISTANCE AND PATIENT WAS THEN ESCORTED OUT FROM SHOWER UNDER HIS OWN POWER TO BED. PATIENT WAS THEN TALKED TO UP CLOSE BY THIS NURSE AND ADVISED THAT I HAD NEVER MEANT HIM BEFORE AND TOO CALM DOWN OR RESTRAINTS WOULD BE APPLIED RIGHT NOW WITH PATIENT IN AGREEMENT TO QUIT YELLING AND COOPERATE. THIS NURSE CONFERENCED WITH GURMEET BALL RN, CHARGE NURSE AND PATIENT WAS THEN MOVED TO ROOM 352 VIA BED WITH ALL PERSONAL BELONGINGS, CHART. REPORT WAS GIVEN TO SIOMARA BAE RN.
[2019-06-26 05:14] LABS: Anion Gap 2 mmol/L (6-16); Blood Urea Nitrogen 29 mg/dL (8-24); Bun/Creatinine Ratio 26.9 (12.0-20.0); CO2, Blood 37 mmol/L (21-32); Calcium, Blood 8.9 mg/dL (8.5-10.1); Chloride, Blood 98 mmol/L (98-108); Creatinine, Blood 1.08 mg/dL (0.60-1.20); Glomerular Filtration Rate >60 (60-); Glucose, Blood 115 mg/dL (70-99); Potassium, Blood 4.6 mmol/L (3.5-5.5); Sodium, Blood 137 mmol/L (136-145)
--- NOTE | 2019-06-26 05:45 | NUR ---
SHIFT SUMMARY PATIENT TRANSFERRED FROM ROOM 356. PATIENT WAS VERY AGITATED AFTER BEING TRANSFERRED AND YELLING AT STAFF AND ABOUT STAFF. PATIENT SLEPT IN CHAIR ALL NIGHT REFUSING TO GET IN BED. PATIENT UP SBA WITH FWW. CONTINENT WITH USE OF URINAL. NO ACUTE EVENTS OVERNIGHT AFTER PATIENT CALMED AFTER TRANSFERRING FROM 356. WILL CONTINUE TO MONITOR.
--- NOTE | 2019-06-26 17:24 | NUR ---
ALERT. VERY TALKATIVE. COOPERATIVE. USES URINAL, BUT SOMETIMES MISSES. AMBULATORY IN HALLWAY ON OXYGEN. SPEAKS IN COMPLETE SENTENCES. LUNGS DIM T/O. PLEASANT.WCTM.
--- NOTE | 2019-06-27 05:29 | NUR ---
SHIFT SUMMARY PATIENT SLEPT IN CHAIR ALL NIGHT. VERY COOPERATIVE WITH STAFF. NO ACUTE EVENTS OVERNIGHT. TAKES MEDS WHOLE. FSBS WITH NO NEED FOR INSULIN COVERAGE. NO COMPLAINTS FOR THIS RN. WILL CONTINUE TO MONITOR AND REPORT TO ONCOMING RN.
--- NOTE | 2019-06-27 18:42 | NUR ---
ALERT. ORIENTED. COOPERATIVE. DENIES PAIN. PLEASANT. UNLABORED RESPIRATIONS. DOES NOT USE CALL LIGHT. DOES NOT WISH TO USE BED, PREFERRING RECLINER CHAIR. IV PATENT. WCTM.
--- NOTE | 2019-06-28 06:08 | NUR ---
SHIFT SUMMARY: Pt alert and making needs known using call buttong and calling out. Refusing to leave recliner. Slept sitting up. Used CPAP during noc. Smaller mask placed by RT decreased frequency of low 02 alarm. Sats documented at 94-96% on 3L. Legs remained down. Cont with BLE edema from mid thigh to toes. BP 97/69, lopressor held. C/O pain in abdomen- states post BM soreness. Tylenol administered with good effect. Call button in reach. No acute changes to condition.
--- NOTE | 2019-06-29 05:49 | NUR ---
SHIFT SUMMARY: Alert. Making needs known. VSS- resps 24, non-labored. Continous oximetry in place, 02 via NC at 3l. Wore CPAP only intermittently. Remained in recliner all night, intermittetnly elevated lower extremities. Amb with 2 canes and stand by assist. Tylenol administered for RLE pain with good effect. No acute changes in condition. Call button in reach.
--- NOTE | 2019-06-29 16:58 | NUR ---
PATIENTS PERSONAL CLOTHES NEEDED TO BE WASHED AND HE WAS TALKING ABOUT WASHING THEM IN THE SINK, I OFFERED TO WASH THEM IN THE LAUNDRY, HE WAS SO HAPPY THAT I OFFERED AND AGREED, I LET HIM KNOW TO GATHER THEM UP INTO THE BAG AND THEN I WOULD WASH THEM, SO HIS PERSONAL CLOTHES ARE BEING WASHED IN THE LAUNDRY RIGHT NOW AND THEN I WILL DRY THEM AND RETURN THEM. RN NOTIFIED.
--- NOTE | 2019-06-29 17:00 | NUR ---
PATIENT GAVE ME HIS PERSONAL MEDICATION ALONG WITH TWO INHALERS THAT HE HAD FOUND IN HIS PERSONAL BELONGINGS, I GAVE THEM TO THE RN.
--- NOTE | 2019-06-29 17:23 | NUR ---
SUMMARY PT IS A/O X4, PLEASANT AFFECT. @ X'S MAKES BIZZARE STATEMENTS, SOMEWHAT GRANDIOSE. HE IS VERY OBESE, ABLE TO STAND w MINIMAL ASSIST & AMBULATE w FWW & CANES TO BR X 1 TODAY. HE PREFERS TO STAY IN RECLINER T/O DAY, NAPPING INTERMITTANTLY. BLE EDEMATOUS 3+, SKIN DRY, LOTION APPLIED. HE STATE CONTINUOUS O2 USE 3L, VSS. CONTINUE TO AWAIT PLACEMENT.
--- NOTE | 2019-06-29 17:34 | NUR ---
BAG OF HOME MEDS IN ROOM SENT TO PHARMACY FOR KEEPING, RECIEPT TO CHART.
--- NOTE | 2019-06-30 05:18 | NUR ---
SHIFT SUMMARY: A/O, making needs known. Up amb with Assist and 2 canes. Continent. Remained sitting up in recliner all night, elevated LE for short intervals. Cont with +4 non-pitting edema in BLE from mid thigh to toes. No acute changes to condition. Call button with in reach.
--- NOTE | 2019-06-30 18:21 | NUR ---
SHIFT SUMMARY NO CHANGES IN ASSESSMENT AT THIS TIME. PT GIVEN ONE PREPERATION H THIS SHIFT PER REQUEST. VSS. WILL CONTINUE TO MONITOR UNTIL TURNOVER IS COMPLETE.
--- NOTE | 2019-07-01 16:56 | NUR ---
SHIFT SUMMARY NO CHANGES IN ASSESSMENT AT THIS TIME. VSS. PT POSSIBLE DC TOMORROW PER DC PLANNING. PT UP IN CHAIR ALL SHIFT. PT REFUSES TO LAY IN BED. PT WORKED WITH PT THIS SHIFT. AMBULATED IN THE HALLWAY. WILL CONTINUE TO MONITOR UNTIL TURNOVER IS COMPLETE.
[2019-07-02 05:47] LABS: Anion Gap 5 mmol/L (6-16); Blood Urea Nitrogen 30 mg/dL (8-24); Bun/Creatinine Ratio 26.8 (12.0-20.0); CO2, Blood 37 mmol/L (21-32); Chloride, Blood 95 mmol/L (98-108); Creatinine, Blood 1.12 mg/dL (0.60-1.20); Glomerular Filtration Rate >60 (60-); Glucose, Blood 109 mg/dL (70-99); Potassium, Blood 3.9 mmol/L (3.5-5.5); Sodium, Blood 137 mmol/L (136-145)
--- NOTE | 2019-07-02 06:26 | NUR ---
SHIFT SUMMARY NO ACUTE CHANGES THIS SHIFT. PT CALLS FREQUENTLY, REQUESTS SNACKS, BLANKETS ETC. NO COMPLAINTS OF PAIN. SOB W/ EXERTION AT BASELINE. AMBULATES WELL TO THE RESTROOM SBA WITH 2 CANES. CPAP ON WHILE SLEEPING WITH 3 L O2 BLEED IN. OTHERWISE PT ON 3 L O3 NC. VSS. POSSIBLE PLACEMENT? WILL CONTINUE TO MONITOR.
[2019-07-02] MEDS ORDERED: GABA300 PO (12:22)
[2019-07-02] MEDS ORDERED: Preparation H1 EAC1 (12:23)
[2019-07-02] MEDS ORDERED: METO25 PO (12:26)
[2019-07-02] MEDS ORDERED: ANTACID PLUS A355 M1 (12:26)
--- NOTE | 2019-07-02 14:40 | NUR ---
THIS RN PROVIDED PATIENT WITH DISCHARGE PAPERWORK, PREPARED BY TALA SCHUSTER. [facility]. PATIENT STATED HE WOULD TAKE HIS OWN VEHICLE TO [place] FOR APPOINTMENT AT 1445. PATIENT ESCORTED OUT BY SECURITY. NO ACUTE ISSUES NOTED. BELONGINGS LEFT WITH PATIENT.
== END 2019-07-02 12:55 | disposition home or self-care (01) | DRG 291 ==
LOC: ER 11:18 → MEDS 13:03 → PCU 13:03 → MEDS 06-17 18:08
PROVIDERS: Emergency Medicine; Hospitalist; Internal Medicine; ADMIT Internal Medicine
PROC: 5A09357 Assistance with Respiratory Ventilation, Less than 24 Consecutive Hours, Continuous Positive Airway Pressure (ICD-10-PCS; principal; 2019-06-15)
DX: I11.0 Hypertensive heart disease with heart failure (principal); J96.21 Acute and chronic respiratory failure with hypoxia; J96.22 Acute and chronic respiratory failure with hypercapnia; G92 Toxic encephalopathy; E66.2 Morbid (severe) obesity with alveolar hypoventilation; Z68.43 Body mass index [BMI] 50.0-59.9, adult; R45.851 Suicidal ideations; I50.33 Acute on chronic diastolic (congestive) heart failure; F32.9 Major depressive disorder, single episode, unspecified; E87.6 Hypokalemia; F19.10 Other psychoactive substance abuse, uncomplicated; D63.8 Anemia in other chronic diseases classified elsewhere; Z74.09 Other reduced mobility; J42 Unspecified chronic bronchitis; E11.40 Type 2 diabetes mellitus with diabetic neuropathy, unspecified; F43.10 Post-traumatic stress disorder, unspecified; K21.9 Gastro-esophageal reflux disease without esophagitis; D50.9 Iron deficiency anemia, unspecified; I95.9 Hypotension, unspecified; Z59.0 Homelessness; Z99.81 Dependence on supplemental oxygen; Z88.6 Allergy status to analgesic agent; Z88.5 Allergy status to narcotic agent; Z88.0 Allergy status to penicillin; Z88.8 Allergy status to other drugs, medicaments and biological substances; Z86.14 Personal history of Methicillin resistant Staphylococcus aureus infection
CPT/HCPCS: 36415; 71045; 80047; 80048; 80053; 81001; 82728; 82803; 82947; 83036; 83540; 83550; 83735; 83880; 84484; 85014; 85025; 85027; 87070; 87081; 93005; 93010; 93308; 93321; 94640; 94660; 94760; 94761; 94762; 96365; 96366; 96368; 96375; 97110; 97116; 97162; 97530; 99285-25; A9270; J0360; J0610; J1650; J1940; J3480

== ENCOUNTER 2019-08-13 12:30 | Inpatient (IN) | payer OTHER, MEDICARE ==
[~2019-08-13] VITALS: Ht 154.9 cm; Wt 136.5 kg
[~2019-08-13 12:30] MED LIST changes: +ANTACID PLUS A355 M1; +ANTI-ITCH LOTI222 ML TOP; +DOCU100 PO; +FERSU300 PO; +Klor-Con 1010 MEQ PO; +METO25 PO; +NARCAN4 MG; +Preparation H1 EAC1
[2019-08-13 13:40] LABS: PO2 Arterial 94.4 mmHg (80-100)
[2019-08-13 13:41] LABS: PCO2 Arterial 74 mmHg (35-45); pH Blood Arterial 7.29 (7.35-7.45)
[2019-08-13 13:49] LABS: BASOPHILS ABSOLUTE AUTO 0.04 K/mm3 (0.00-0.23); BASOPHILS PERCENT AUTO 1 % (0-2); EOSINOPHILS ABSOLUTE AUTO 0.17 K/mm3 (0.00-0.68); EOSINOPHILS PERCENT AUTO 2 % (0-6); Hematocrit 35.3 % (37.0-53.0); Hemoglobin 10.4 g/dL (13.5-17.5); IMMATURE GRAN ABSOLUTE AUTO 0.04 K/mm3 (0.00-0.10); IMMATURE GRAN PERCENT AUTO 1 % (0-1); LYMPHOCYTES ABSOLUTE AUTO 1.46 K/mm3 (0.84-5.20); LYMPHOCYTES PERCENT AUTO 21 % (21-46); MONOCYTES ABSOLUTE AUTO 1.23 K/mm3 (0.16-1.47); MONOCYTES PERCENT AUTO 18 % (4-13); Mean Corpuscular HGB 25.4 pg (26.0-34.0); Mean Corpuscular HGB Conc 29.5 g/dL (31.5-36.5); Mean Corpuscular Volume 86 fL (80-100); Mean Platelet Volume 9.6 fL (9.1-12.4); NEUTROPHILS ABSOLUTE AUTO 4.09 K/mm3 (1.96-9.15); NEUTROPHILS PERCENT AUTO 58 % (41-73); Platelet Count 207 K/mm3 (150-400); RDW Coefficient Variation 21.1 % (11.7-14.2); RDW Standard Deviation 66.9 fL (35.1-46.3); Red Blood Cell Count 4.09 M/mm3 (4.30-5.90); White Blood Cell Count 7.03 K/mm3 (4.00-11.30)
[2019-08-13 14:03] LABS: Albumin, Blood 2.8 g/dL (3.4-5.0); Albumin/Globulin Ratio 0.5 (0.8-1.8); Bilirubin, Total 0.2 mg/dL (0.1-1.0); Bun/Creatinine Ratio 13.1 (12.0-20.0); Calcium, Blood 8.3 mg/dL (8.5-10.1); Creatinine, Blood 1.37 mg/dL (0.60-1.20); Globulin, Blood 5.2 g/dL (2.2-4.0); Potassium, Blood 3.9 mmol/L (3.5-5.5)
[2019-08-13 14:22] LABS: Influenza A Negative (NEGATIVE); Influenza B Negative (NEGATIVE)
[2019-08-13 15:07] LABS: Source, Urine Catheter
[2019-08-13] MEDS ORDERED: MELA3 PO (15:44)
[2019-08-13] MEDS ORDERED: Prazosin HCl2 MG PO (15:45)
[2019-08-13 16:09] LABS: U Amphetamine Screen DETECTED; U Barbituate Screen Not Detected; U Benzodiazapine Screen Not Detected; U Buprenorphine Screen Not Detected; U Cannabinoids Screen Not Detected; U Cocaine Screen Not Detected; U Methadone Screen Not Detected; U Methamphetamine Screen DETECTED; U Opiates Screen Not Detected; U Oxycodone Screen Not Detected; U Phencyclidine Screen Not Detected; U Propoxyphene Screen Not Detected
[2019-08-13 16:32] LABS: Bilirubin, Urine Neg (Neg); Blood, Urine 5+ (Neg); Glucose Qualitative, Urine Neg (Neg); Ketones, Urine Neg (Neg); Leukocyte Esterase, Urine Neg (Neg); Nitrite, Urine Neg (Neg); Protein, Urine 3+ (Neg); Urobilinogen, Urine NORM (Normal)
--- NOTE | 2019-08-13 16:33 | NUR ---
PT ARRIVED TO UNIT BY WHEELCHAIR; STOOD AND TRANSFERED TO RECLINER; STATES HE CANNOT LAY IN BED; PT MUMBLES AND IS DIFFICULT TO UNDERSTAND AT TIMES; PT HAS WALLET AND CHOPRA IN HIS HAND AND WAS ADVISED TO HAVE SECURITY LOCK UP HIS CHOPRA AND BELONGINGS; PT REFUSES; PT REFUSES CARE; PT STARTED STARTED ON OXYGEN AT 3L NC AND EDUCATED ON HIS LOW O2 SATURATION OF 88%; REFUSES TO LEAVE BIPAP ON; PT IN SR W/BBB HR IN 80'S PER NUMERICAL CONTROL ROUTER OPERATOR; CALL LIGHT IN REACH; CHAIR IN LOCKED POSITION; WILL CONTINUE TO MONITOR CLOSELY
[2019-08-13 16:47] LABS: Appearance, Urine Clear (Clear); Color, Urine Yellow (P-Yellow)
[2019-08-13 16:49] LABS: Bacteria Few /hpf; Granular Casts Rare /lpf (0); Red Blood Cells, Urine 50-100 /hpf (0-2); Squamous Epithelial Cells Rare /hpf (Few)
--- NOTE | 2019-08-13 18:29 | NUR ---
PT IN CHAIR; A&O X3; DIFFICULT TO UNDERSTAND AT TIMES; PT FRUSTRATED W/ CONDITION AND STARTED TO CRY; PT USES URINAL IN CHAIR; PT ASKED AGAIN TO HAVE SECURITY PLACE CHOPRA AND BELONGINGS IN SAFE; PT REFUSED; REITERATED STAFF IS NOT RESPONSIBLE; PT VERBALIZED UNDERSTANDING; PT EDUCATED ON NEED FOR BIPAP AND ENCOURAGED TO PUT IT ON AND TRY TO LEAVE IT ON; PT AGREED AND BIPAP PLACE; CALL LIGHT IN REACH; WILL CONTINUE TO MONITOR AND ASSESS UNTIL HAND OFF TO NOC RN.
--- NOTE | 2019-08-14 00:09 | NUR ---
2044. PATIENT SLEEPING SITTING IN THE RECLINER, OB BIPAP V 60. PATIENT WOKE WITH LOUD VERBAL STIMULI AND TOUCH TO HIS SHOULDER. UPON WAKING PATIENT BECAME TO MAKE LOUD MOANING SOUNDS AND YELLING THAT HE NEEDED TO VOID. UNFORTUNATELY IN HIS EFFORTS TO COMMUNICATE HIS NEEDS AND HIS HASTE, HE BEGAN TO VOID PRIOR TO THE URINAL BEING PLACED IN THE CORRECT PLACE. PATIENT WAS VERY UPSET. HE WAS CLEANED UP. HE WOULD NOT ALLOW ME TO DO AN ASSESSMENT ON HIM OTHER THAN A VISUAL ASSESSMENT. hE WOULD NOT TAKE ANY WATER, OR HIS ORAL MEDICATIONS. PATIENT HAS HIS WALLET WITH HIM ON THE OVERBED TABLE. 2329. PATIENT REMAINS SLEEPING IN RECLINER ON BIPAP. i WOKE THE PATIENT TO ATTEMPT TO HAVE HIM TAKE HIS ORAL MEDICATION. HE INITIALLY NODDED IN AGREEMENT TO BOTH WATER TO DRINK AND TAKING HIS MEDICATIONS. HOWEVER, HE DID NOT TAKE EITHER AFTER I ROMOVED HIS BIPAP MASK. BIPAP MASK REPLACED. PATIENT BACK TO SLEEP. TAB ALARM ON, CALL LIGHT AT RT SIDE ON RECLINER.
[2019-08-14 03:47] LABS: BASOPHILS ABSOLUTE AUTO 0.01 K/mm3 (0.00-0.23); BASOPHILS PERCENT AUTO 0 % (0-2); EOSINOPHILS PERCENT AUTO 0 % (0-6); Hematocrit 36.5 % (37.0-53.0); Hemoglobin 10.3 g/dL (13.5-17.5); IMMATURE GRAN ABSOLUTE AUTO 0.05 K/mm3 (0.00-0.10); IMMATURE GRAN PERCENT AUTO 1 % (0-1); LYMPHOCYTES ABSOLUTE AUTO 0.78 K/mm3 (0.84-5.20); LYMPHOCYTES PERCENT AUTO 13 % (21-46); MONOCYTES ABSOLUTE AUTO 0.07 K/mm3 (0.16-1.47); MONOCYTES PERCENT AUTO 1 % (4-13); Mean Corpuscular HGB 24.9 pg (26.0-34.0); Mean Corpuscular HGB Conc 28.2 g/dL (31.5-36.5); Mean Corpuscular Volume 88 fL (80-100); Mean Platelet Volume 9.4 fL (9.1-12.4); NEUTROPHILS ABSOLUTE AUTO 5.05 K/mm3 (1.96-9.15); NEUTROPHILS PERCENT AUTO 85 % (41-73); Platelet Count 185 K/mm3 (150-400); RDW Coefficient Variation 20.9 % (11.7-14.2); RDW Standard Deviation 67.3 fL (35.1-46.3); Red Blood Cell Count 4.14 M/mm3 (4.30-5.90); White Blood Cell Count 5.96 K/mm3 (4.00-11.30)
[2019-08-14 04:20] LABS: Alanine Aminotransfer (ALT/SGP 29 U/L (12-78); Albumin, Blood 2.8 g/dL (3.4-5.0); Albumin/Globulin Ratio 0.5 (0.8-1.8); Alk Phos 66 U/L (50-136); Anion Gap 6 mmol/L (6-16); Aspartate Aminotrans (AST/SGOT 27 U/L (12-37); Bilirubin, Total 0.2 mg/dL (0.1-1.0); Blood Urea Nitrogen 20 mg/dL (8-24); Bun/Creatinine Ratio 16.3 (12.0-20.0); CO2, Blood 30 mmol/L (21-32); Calcium, Blood 8.5 mg/dL (8.5-10.1); Chloride, Blood 104 mmol/L (98-108); Creatinine, Blood 1.23 mg/dL (0.60-1.20); Globulin, Blood 5.6 g/dL (2.2-4.0); Glomerular Filtration Rate >60 (60-); Glucose, Blood 197 mg/dL (70-99); Potassium, Blood 3.9 mmol/L (3.5-5.5); Sodium, Blood 140 mmol/L (136-145); Total Protein, Blood 8.4 g/dL (6.4-8.2)
--- NOTE | 2019-08-14 06:31 | NUR ---
PATIENT BEGAN WAKING UP AND TALKING AROUNG 0230 THIS AM. HE DID NOT KNOW WHERE HE WAS OR WHETHER OR NOT HE HAD DONE SOMETHING TERRIBLE AND WAS AT CUSTODIAL. HE WAS AWAKE FOR LONG ENOUGH TO HAVE A SANDWICH. NO OTHER ACUTE CHANGES THIS SHIFT.
[2019-08-14 13:20] LABS: Base Excess Venous 9.4 mmol/L; Bicarbonate Venous 31.6 mmol/L (24.0-30.0); PCO2 Venous 53 mmHg (38-42); PO2 Venous 47 mmHg (38-42); pH Blood Venous 7.41 (7.34-7.37)
--- NOTE | 2019-08-14 16:16 | NUR ---
Pt visit this afternoon. Pt sitting in recliner chair wearing BIPAP. Bedside nurse Jessica present to adminster medication and take Pt off BIBPAP for a short period. Pt initial startles when he awakes and starts cursing. Pt calms slightly after a few minutes but is still loud and inapropriate with much of his conversation throughout the visit. Listened as Pt complains about the care he receives. His speach is difficult to understand and appears to engage in multiple conversations begining with a few words for each topic. At one point Pt discusses condieration of hospice and placement then several minutes later states he does not want hospice. He states "As long as I can orgasm and as long as my penis still works, I don't want hospice". Pt is agitated throughout visit. This RN ended visit to allow Pt to rest. Spoke with bedside nurses Jessica Peck, and discussed case. Spoke with rn progressive care unit Phyllis and discussed case. Palliative Care will remain available.
--- NOTE | 2019-08-14 16:44 | NUR ---
PT ANGRY TODAY AND YELLED AT STAFF THROUGHOUT DAY; PT DOES NOT HELP W/ CARE; ARGUES W/ STAFF AND TALKS OVER STAFF MAKING CONVERSATION DIFFICULT; SPUTUM CULTURE COLLECTED; PT AMBULATES TO BATHROOM W/FWW; PT ON 3L O2 NC W/ O2 SATS >94; BLE 4+ WEEPING EDEMA; RT IN FOR TX AND BROUGHT PT COLORING BOOKS TO PASS TIME; PALLIATIVE CARE TO BEDSIDE, PT INAPPROPRIATE AND DISGRUNTLED; PT ENCOURAGED TO USE BIPAP WHEN SLEEPING; TYLENOL GIVEN PER EMAR FOR JOINT PAIN;PT CURRENTLY SLEEPING IN CHAIR W/ BIPAP ON; CALL LIGHT IN REACH; TAB ALARM ON; WILL CONTINUE TO MONITOR CLOSELY UNTIL HAND OFF TO NOC RN.
--- NOTE | 2019-08-15 05:23 | NUR ---
PCU NOC NOC SHIFT SUMMARY PATIENT ALERT AND ORIENTED TO SELF AND LOCATION T/O SHIFT. PATIENT LABILE - YELLING AND NURSING STAFF AT TIMES, PATIENT GENTLY ENCOURAGED TO PROVIDE SELF CARE, PATIENT COOPERATED WITH VERBAL FRUSTRATION GIVEN "IF YOU AREN'T GOING TO HELP ME GET THE F OUT OF MY ROOM". PATIEN TREMAINED IN NSR T/O THE NIGHT IN THE 60'S WITH NO CARDIAC EVENTS NOTED PER LEGAL RESEARCH ANALYST. PATIENT REMAINED ON BIPAP FOR THE MAJORITY OF THE NIGHT AND TOLERATED IT WELL WHILE SLEEPING IN RECLINER. PATIENT ON 2 LPM NC WHEN NOT ON BIPAP. PATIENT REPORTS ONGOING CHRONIC PAIN T/O SHIFT BUT STATES IT IS MANAGABLE WITH SNACKS T/O THE SHIFT. CALL LIGHT W/I REACH AND TAB ALARM IN PLACE. WILL CONTINUE TO MONITOR AND GIVE REPORT TO DAYSHIFT RN.
[2019-08-15 06:34] LABS: BASOPHILS PERCENT AUTO 0 % (0-2); EOSINOPHILS PERCENT AUTO 0 % (0-6); Hematocrit 33.1 % (37.0-53.0); Hemoglobin 9.7 g/dL (13.5-17.5); IMMATURE GRAN ABSOLUTE AUTO 0.11 K/mm3 (0.00-0.10); IMMATURE GRAN PERCENT AUTO 1 % (0-1); LYMPHOCYTES ABSOLUTE AUTO 0.81 K/mm3 (0.84-5.20); LYMPHOCYTES PERCENT AUTO 7 % (21-46); MONOCYTES ABSOLUTE AUTO 0.34 K/mm3 (0.16-1.47); MONOCYTES PERCENT AUTO 3 % (4-13); Mean Corpuscular HGB 24.6 pg (26.0-34.0); Mean Corpuscular HGB Conc 29.3 g/dL (31.5-36.5); Mean Platelet Volume 9.8 fL (9.1-12.4); NEUTROPHILS ABSOLUTE AUTO 10.92 K/mm3 (1.96-9.15); NEUTROPHILS PERCENT AUTO 90 % (41-73); Platelet Count 208 K/mm3 (150-400); RDW Coefficient Variation 20.9 % (11.7-14.2); RDW Standard Deviation 63.8 fL (35.1-46.3); Red Blood Cell Count 3.94 M/mm3 (4.30-5.90); White Blood Cell Count 12.18 K/mm3 (4.00-11.30)
[2019-08-15 06:48] LABS: Mean Corpuscular Volume 84 fL (80-100)
[2019-08-15 06:51] LABS: Albumin, Blood 2.7 g/dL (3.4-5.0); Anion Gap 5 mmol/L (6-16); Blood Urea Nitrogen 32 mg/dL (8-24); Bun/Creatinine Ratio 29.6 (12.0-20.0); CO2, Blood 35 mmol/L (21-32); Calcium, Blood 8.3 mg/dL (8.5-10.1); Chloride, Blood 98 mmol/L (98-108); Creatinine, Blood 1.08 mg/dL (0.60-1.20); Glomerular Filtration Rate >60 (60-); Glucose, Blood 247 mg/dL (70-99); Phosphorus, Blood 2.7 mg/dL (2.5-4.9); Sodium, Blood 138 mmol/L (136-145)
--- NOTE | 2019-08-15 11:51 | NUR ---
Spiritual care visit conducted. Patient is resting on the bedside chair. Patient is easily awakened and the first words out of his mouth were that he has demons in his room and that the staff are the most incompetent people he has ever met. Patient talks himself into an angry rage within minutes. I ask patient if he would be interested in talking to Rimma our Patient Advocate and he affirms that he would like to because she listened to him. This led him on another rant about a previous visit. He paused long enough between swear words to tell me that he wanted a Bible and a Rosary. Respiratory Therapsit, Scott came in and began a breathing treatment. I then went downstairs and acquired a Bible and Rosary for the patient and spoke with Rimma. Rimma came immediately to the room. I had her give the Bible and Rosary to the patient. I will continue to remain available to patient and family.
--- NOTE | 2019-08-15 17:53 | NUR ---
SUMMARY PT SITTING UP IN THE RECLINER AT THE BEDSIDE, PT HAD A SHOWER THIS EVENING, PT HAS BEEN OFF AND ON THE BIPAP T/O THE DAY, PT LOUD AND ABRASIVE WITH STAFF AND IN HIS MANNERISMS, VSS, NO ACUTE CHANGES, WILL CONT TO MONITOR
--- NOTE | 2019-08-15 22:30 | NUR ---
states he is in pain but that nothing helps it, tylenol was tried but he said it was ineffective and did not help him "sleep" will continue to monitor and attempt other non pharmalogical interventions
--- NOTE | 2019-08-15 23:27 | NUR ---
TRANFER: REPORT WAS RECIEVED FROM FILIPPO EDGAR FROM PCU AAND PATIENT WAS RECIEVED VIA WHEEL CHAIR. PATIENT IS ORIENTED TO ROOM AND CALL PANG. VS ARE STABLE. RT IS IN ROOM TO SET UP RESPIRATORY EQUIPMENT.
--- NOTE | 2019-08-15 23:49 | NUR ---
INSOMNIA: PATIENT IS REQUESTING SLEEP AIDE FOR INSOMNIA. ORDERS ARE OBTAINED FOR HS HOME MEDS, MINIPRESS AND MELATONIN.
[2019-08-16 04:52] LABS: BASOPHILS ABSOLUTE AUTO 0.01 K/mm3 (0.00-0.23); BASOPHILS PERCENT AUTO 0 % (0-2); EOSINOPHILS PERCENT AUTO 0 % (0-6); Hematocrit 32.7 % (37.0-53.0); Hemoglobin 9.7 g/dL (13.5-17.5); IMMATURE GRAN ABSOLUTE AUTO 0.29 K/mm3 (0.00-0.10); IMMATURE GRAN PERCENT AUTO 2 % (0-1); LYMPHOCYTES ABSOLUTE AUTO 0.88 K/mm3 (0.84-5.20); LYMPHOCYTES PERCENT AUTO 7 % (21-46); MONOCYTES ABSOLUTE AUTO 0.44 K/mm3 (0.16-1.47); MONOCYTES PERCENT AUTO 3 % (4-13); Mean Corpuscular HGB 24.7 pg (26.0-34.0); Mean Corpuscular HGB Conc 29.7 g/dL (31.5-36.5); Mean Corpuscular Volume 83 fL (80-100); Mean Platelet Volume 10.2 fL (9.1-12.4); NEUTROPHILS PERCENT AUTO 88 % (41-73); Platelet Count 204 K/mm3 (150-400); RDW Coefficient Variation 20.9 % (11.7-14.2); RDW Standard Deviation 63.8 fL (35.1-46.3); Red Blood Cell Count 3.93 M/mm3 (4.30-5.90); White Blood Cell Count 13.22 K/mm3 (4.00-11.30)
[2019-08-16 05:07] LABS: Anion Gap 1 mmol/L (6-16); Blood Urea Nitrogen 35 mg/dL (8-24); Bun/Creatinine Ratio 29.7 (12.0-20.0); CO2, Blood 37 mmol/L (21-32); Calcium, Blood 8.3 mg/dL (8.5-10.1); Chloride, Blood 98 mmol/L (98-108); Creatinine, Blood 1.18 mg/dL (0.60-1.20); Glomerular Filtration Rate >60 (60-); Glucose, Blood 310 mg/dL (70-99); Potassium, Blood 4.4 mmol/L (3.5-5.5); Sodium, Blood 136 mmol/L (136-145)
--- NOTE | 2019-08-16 06:16 | NUR ---
SHIFT SUMMARY: PATIENT WAS GIVEN PRN BENADRYL FOR INSOMNIA WITH GOOD EFFECT. ALL HOME MEDICATIONS HAVE NOW BEEN ADDRESSED. PATIENT WAS ASSISTED TO THE BATHROOM WITH WALKER AND STAND BY ASSIST. PATIENT WOKE IN THE MIDDLE OF THE NIGHT AND ATE 100% OF A WHOLE SANDWICH, ICE CREAM, HOT CHOCOLATE AND COKE. NO COMPLIANTS OF PAIN. PATIENT SLEEPS IN RECLINER AND IS USING CPAP DURING HOURS OF SLEEP.
--- NOTE | 2019-08-16 12:16 | NUR ---
PT C/O CHEST PAIN; PT COMPLAINING OF SUBSTERNAL CHEST PAIN THAT DOES NOT RADIATE; WORSE WITH DEEP BREATHING; TONSORIAL ARTIST REPORTS SR c BBB @ 74. DR NOTIFIED; FAMILIAR WITH PATIENT HX; NEW ORDERS EXPECTED FOR TUMS. WCTM.
--- NOTE | 2019-08-16 15:33 | NUR ---
PATIENT SENT TO [facility] FOR CXR PER ORDER. PATIENT EATING PRIOR TO LEAVING, CBG 273, SLIDING SCALE INSULIN ADMINISTERED PER ORDER.
--- NOTE | 2019-08-16 17:46 | NUR ---
CBG AT APROXIMATELY 1515 273 PT REQUESTING SNACK, HUMOLOG GIVEN PER MEDIUM SLIDING SCALE 7 UNITS. CBG AT 2568 240, DR. HUNTER NOTIFIED RECIEVED ORDER FOR HUMOLOG 5 UNITS SC TIDAC, AND TO GIVE SLIDING SCALE IN ADDITION FOR DINNER.
--- NOTE | 2019-08-16 18:23 | NUR ---
SHIFT SUMMARY: 1500 ASSUMED CARE OF PATIENT, REPORT GIVEN BY DIPTI EDGAR. PRIOR TO CARE. PATIENT AO TO PERSON, PLACE, TIME, AND SITUATION. COOPERATIVE WITH CARE ABLE TO MAKE NEEDS KNOWN. PATIENT SHOWING SOME AGITATION TO CARE PROVIDED. DROPLET PRECAUTIONS IN PLACE PER ORDERS. IND. IN ROOM NEEDING MINIMAL ASSISTANCE. IV ABO INFUSED WITHOUT OBSERVABLE OR REPORTED ASE. IV PATENT TO RUE. DRSGS TO BLE CHANGED. NON PITTING EDEMA. PEDAL PULSES +2 BILATERALLY. NO OPEN WOUNDS TO BLE.
--- NOTE | 2019-08-17 03:18 | NUR ---
PT SCREAMING AND YELLING AT INTERVALS MOST OF SHIFT UNTIL 0000, THREATENED STAFF, BELITTLED OTHERS, YELLED AT THEM. PULLED OFF GOWN, BANDAGES OF LOWER EXTREMITIES AND REFUSED TO ALLOW NURSE RE BANDAGE LEGS. IV ANTIBIOTICS ADMINISTERED PER NOV. CALL LIGHT IN REACH. RT TREATENTS GIVEN - SEE NOV. DROPLET PRECAUTIONS CONTINUE. RESTING QUIETLY AT THIS TIME.
[2019-08-17 05:25] LABS: BASOPHILS ABSOLUTE AUTO 0.02 K/mm3 (0.00-0.23); BASOPHILS PERCENT AUTO 0 % (0-2); EOSINOPHILS ABSOLUTE AUTO 0.01 K/mm3 (0.00-0.68); EOSINOPHILS PERCENT AUTO 0 % (0-6); Hematocrit 33.9 % (37.0-53.0); IMMATURE GRAN PERCENT AUTO 2 % (0-1); LYMPHOCYTES PERCENT AUTO 9 % (21-46); MONOCYTES ABSOLUTE AUTO 0.92 K/mm3 (0.16-1.47); MONOCYTES PERCENT AUTO 7 % (4-13); Mean Corpuscular HGB 24.6 pg (26.0-34.0); Mean Corpuscular HGB Conc 29.5 g/dL (31.5-36.5); Mean Corpuscular Volume 83 fL (80-100); Mean Platelet Volume 9.7 fL (9.1-12.4); NEUTROPHILS ABSOLUTE AUTO 10.69 K/mm3 (1.96-9.15); NEUTROPHILS PERCENT AUTO 81 % (41-73); NRBC ABSOLUTE 0.02 K/mm3 (0.00-0.02); NRBC Auto 0.2 /100 WBC (0.0-0.2); Platelet Count 187 K/mm3 (150-400); RDW Coefficient Variation 20.9 % (11.7-14.2); RDW Standard Deviation 63.5 fL (35.1-46.3); Red Blood Cell Count 4.07 M/mm3 (4.30-5.90); White Blood Cell Count 13.14 K/mm3 (4.00-11.30)
[2019-08-17 05:41] LABS: Anion Gap 2 mmol/L (6-16); Blood Urea Nitrogen 38 mg/dL (8-24); Bun/Creatinine Ratio 34.9 (12.0-20.0); CO2, Blood 36 mmol/L (21-32); Calcium, Blood 8.4 mg/dL (8.5-10.1); Chloride, Blood 99 mmol/L (98-108); Creatinine, Blood 1.09 mg/dL (0.60-1.20); Glomerular Filtration Rate >60 (60-); Glucose, Blood 212 mg/dL (70-99); Potassium, Blood 4.3 mmol/L (3.5-5.5); Sodium, Blood 137 mmol/L (136-145)
--- NOTE | 2019-08-17 17:49 | NUR ---
SHIFT SUMMARY. A&OX3, SBA IN ROOM, PT SHOWERED TODAY MOSTLY INDEPENDENTLY PER CONSUMER SERVICES CONSULTANT. CONTINUES WITH 3L O2 NC, CPAP WITH SLEEP. PT DENIES PAIN, N/V, SOB. CBG STILL TRENDING HIGH, INSULIN GIVEN PER ORDERS, PT REQUESTS HIGH CARBOHYDRATE SNACKS, PT EDUCATED ON BENEFIT OF REDUCING HIGH CARB FOODS. PT REPORTS THAT HE IS FEELIN GMUCH BETTER TODAY COMPARED TO YESTERDAY. PT WITH INTERMITTENT AGITATION, REDIRECTIBLE AT TIMES. PT REPORTS THAT HE DOES NOT WANT CAREGIVERS THAT ARE "TALL AND HAVE BALD HEADS" THEY INVOKE ANXIETY. CN AWARE. NO NEW CHANGES OR CONCERNS.
--- NOTE | 2019-08-18 05:17 | NUR ---
MEDICAL OFFICE RECEPTIONIST SUMMARY NO ACUTE CHANGES THIS SHIFT. PT AAOX3 AND COOPERATIVE WITH CARE. IRRITABLE AT TIMES BUT HAS BEEN MOSTLY PLEASANT TONIGHT. PT WAS ABLE TO SLEEP MAJORITY OF THE NIGHT WITH HIS CPAP. LUNGS STILL A LITTLE COARSE IN BASES. PT CONTINUES TO COUGH UP SMALL-MODERATE AMOUNTS OF THICK SPUTUM. CONTINUING IV ABX AND SOLU MEDROL. VSS, WILL CONTINUE TO MONITOR.
[2019-08-18 08:10] LABS: BASOPHILS ABSOLUTE AUTO 0.02 K/mm3 (0.00-0.23); BASOPHILS PERCENT AUTO 0 % (0-2); EOSINOPHILS PERCENT AUTO 0 % (0-6); Hematocrit 34.2 % (37.0-53.0); Hemoglobin 10.2 g/dL (13.5-17.5); IMMATURE GRAN ABSOLUTE AUTO 0.53 K/mm3 (0.00-0.10); IMMATURE GRAN PERCENT AUTO 4 % (0-1); LYMPHOCYTES ABSOLUTE AUTO 1.04 K/mm3 (0.84-5.20); LYMPHOCYTES PERCENT AUTO 9 % (21-46); MONOCYTES ABSOLUTE AUTO 0.54 K/mm3 (0.16-1.47); MONOCYTES PERCENT AUTO 4 % (4-13); Mean Corpuscular HGB 24.8 pg (26.0-34.0); Mean Corpuscular HGB Conc 29.8 g/dL (31.5-36.5); Mean Corpuscular Volume 83 fL (80-100); Mean Platelet Volume 9.4 fL (9.1-12.4); NEUTROPHILS ABSOLUTE AUTO 10.06 K/mm3 (1.96-9.15); NEUTROPHILS PERCENT AUTO 83 % (41-73); NRBC ABSOLUTE 0.03 K/mm3 (0.00-0.02); NRBC Auto 0.2 /100 WBC (0.0-0.2); Platelet Count 196 K/mm3 (150-400); RDW Coefficient Variation 20.9 % (11.7-14.2); RDW Standard Deviation 62.8 fL (35.1-46.3); Red Blood Cell Count 4.11 M/mm3 (4.30-5.90); White Blood Cell Count 12.19 K/mm3 (4.00-11.30)
[2019-08-18 08:28] LABS: Anion Gap 4 mmol/L (6-16); Blood Urea Nitrogen 44 mg/dL (8-24); Bun/Creatinine Ratio 43.1 (12.0-20.0); CO2, Blood 36 mmol/L (21-32); Calcium, Blood 8.3 mg/dL (8.5-10.1); Chloride, Blood 97 mmol/L (98-108); Creatinine, Blood 1.02 mg/dL (0.60-1.20); Glomerular Filtration Rate >60 (60-); Glucose, Blood 199 mg/dL (70-99); Potassium, Blood 4.6 mmol/L (3.5-5.5); Sodium, Blood 137 mmol/L (136-145)
--- NOTE | 2019-08-18 10:59 | NUR ---
PT ALERT, AWAKE, DEMANDING, CONDESCENDING. ANGRY. DISCUSSED HIS INAPPROPRIATENESS OF LANGUAGE. ADVISED PT I WILL LEAVE ROOM, DID RT FOR HIS ABUSIVE LANGUAGE. HE CONTINUES TO YELL. LEFT ROOM TWICE. TRIED ASSESSMENT AGAIN SHORTLY. HE MORE CALM AT THIS TIME. A/O X3. DEMANDING, ANGRY. H/R REG, NO MURMER NOTED, PER TELE NSR AT 63 W/ BBB. LUNGS CLEAR, BUT WHEEZY T/O. ON 3L O2. RESP EASY, UNLABORED, WHEN NOT YELLING. BT X4 LAST BM YEST. PT STATES SOFT. NORMAL. VOIDS PER URINAL. PT SITTING IN RECLINER CHAIR. CALL LITE IN REACH, CALLS APPROP. HE REQUESTED PATIENT ADVOCATE. CALLED FOR HIM.
--- NOTE | 2019-08-18 17:16 | NUR ---
PT WAS DISAGREEABLE, IRRITABLE, DEMEANING THIS MORNING. THEATRICAL TROUPER OBSERVED, I DISCUSSED WITH HIM, BUT HE CONTINUED TO YELL. PATIENT ADVOCATE CAME TO VISIT. DISCUSSED. PT HAS BEEN BETTER THIS AFTERNOON. CONTINUE TO MONITOR. PT STATES SOME IMPROVEMENT TODAY. BED IN LOW POSITION, CALL LITE IN REACH, CALLS APPROP. OFTEN CALLS OUT INSTEAD
--- NOTE | 2019-08-19 03:57 | NUR ---
SHIFT SUMMARY AOX4. LS DIM, DENIES SOB. CPAP @ NIGHT, 3L DURING THE DAY. NO C/O NAUSEA. PAIN RATED 8/10 IN FEET. SBA. URINAL. REDDENED BUTTOCKS AND BLE'S. NO OPEN AREAS. DROPLET PRECAUTIONS FOR MRSA. TELE READS SR 60 WITH BBB AND PAC'S. SALINE LOCKED. HS BLOOD GLUCOSE WAS 167. CONT PULSE OX. TUMS AND TYLENOL @ 1999. POSSIBLE DC TODAY.
[2019-08-19] MEDS ORDERED: PRED20 PO (11:12)
[2019-08-19] MEDS ORDERED: METO25 PO (11:14)
[2019-08-19] MEDS ORDERED: Preparation H1 EAC1 PR (11:15)
--- NOTE | 2019-08-19 13:32 | NUR ---
ADIA'D WITH HIS BELONGINGS AND INSTRUCTIONS [facility] BY W/[place]. HE TOOK HIS CPAP MASK WITH HIM. MD DISCHARGE [facility].
== END 2019-08-19 13:00 | disposition home or self-care (01) | DRG 291 ==
LOC: ER 12:30 → PCU 15:12 → MEDS 08-15 23:05 → ENPENDDIS 08-19 12:43 → MEDS 08-19 13:00
PROVIDERS: Internal Medicine; Nurse Practitioner Acute Care; Physician Assistant; ADMIT Internal Medicine
DX: I11.0 Hypertensive heart disease with heart failure (principal); J96.21 Acute and chronic respiratory failure with hypoxia; J96.22 Acute and chronic respiratory failure with hypercapnia; E66.2 Morbid (severe) obesity with alveolar hypoventilation; J44.1 Chronic obstructive pulmonary disease with (acute) exacerbation; E87.2 Acidosis; N17.9 Acute kidney failure, unspecified; I50.43 Acute on chronic combined systolic (congestive) and diastolic (congestive) heart failure; E11.9 Type 2 diabetes mellitus without complications; B95.1 Streptococcus, group B, as the cause of diseases classified elsewhere; F43.10 Post-traumatic stress disorder, unspecified; N40.0 Benign prostatic hyperplasia without lower urinary tract symptoms; E78.5 Hyperlipidemia, unspecified; K21.9 Gastro-esophageal reflux disease without esophagitis; D63.8 Anemia in other chronic diseases classified elsewhere; Z59.0 Homelessness; Z88.6 Allergy status to analgesic agent; Z88.5 Allergy status to narcotic agent; Z88.0 Allergy status to penicillin; Z88.8 Allergy status to other drugs, medicaments and biological substances
CPT/HCPCS: 36415; 36600; 71045; 71046; 80048; 80053; 80069; 81001; 82803; 82947; 83735; 83880; 84145; 85025; 87070; 87147; 87205; 87804; 94640; 94645; 94660; 94761; 94762; 96374; 96375; 99285-25; A9270; J0456; J0696; J1644; J1940; J2920; J2930; J3475; J7050; Q0163

== ENCOUNTER 2019-09-24 14:36 | Emergency (ER) | payer OTHER, MEDICARE ==
[~2019-09-24] VITALS: Ht 157.5 cm; Wt 136.5 kg
[~2019-09-24 14:36] MED LIST changes: +MELA3 PO; +PRED20 PO; +Prazosin HCl2 MG PO; +Preparation H1 EAC1 PR
[2019-09-24 15:26] LABS: BASOPHILS ABSOLUTE AUTO 0.06 K/mm3 (0.00-0.23); BASOPHILS PERCENT AUTO 0 % (0-2); EOSINOPHILS PERCENT AUTO 1 % (0-6); Hematocrit 40.2 % (37.0-53.0); Hemoglobin 12.3 g/dL (13.5-17.5); IMMATURE GRAN ABSOLUTE AUTO 0.08 K/mm3 (0.00-0.10); IMMATURE GRAN PERCENT AUTO 1 % (0-1); LYMPHOCYTES PERCENT AUTO 8 % (21-46); MONOCYTES ABSOLUTE AUTO 1.16 K/mm3 (0.16-1.47); MONOCYTES PERCENT AUTO 7 % (4-13); Mean Corpuscular HGB 25.8 pg (26.0-34.0); Mean Corpuscular HGB Conc 30.6 g/dL (31.5-36.5); Mean Corpuscular Volume 85 fL (80-100); Mean Platelet Volume 9.7 fL (9.1-12.4); NEUTROPHILS ABSOLUTE AUTO 13.97 K/mm3 (1.96-9.15); NEUTROPHILS PERCENT AUTO 84 % (41-73); Platelet Count 282 K/mm3 (150-400); RDW Coefficient Variation 19.3 % (11.7-14.2); RDW Standard Deviation 59.7 fL (35.1-46.3); Red Blood Cell Count 4.76 M/mm3 (4.30-5.90); White Blood Cell Count 16.67 K/mm3 (4.00-11.30)
[2019-09-24 15:44] LABS: Alanine Aminotransfer (ALT/SGP 40 U/L (12-78); Albumin, Blood 3.4 g/dL (3.4-5.0); Albumin/Globulin Ratio 0.7 (0.8-1.8); Alk Phos 70 U/L (50-136); Anion Gap 4 mmol/L (6-16); Aspartate Aminotrans (AST/SGOT 25 U/L (12-37); Bilirubin, Total 0.4 mg/dL (0.1-1.0); Blood Urea Nitrogen 15 mg/dL (8-24); Bun/Creatinine Ratio 10.6 (12.0-20.0); CO2, Blood 31 mmol/L (21-32); Calcium, Blood 8.8 mg/dL (8.5-10.1); Chloride, Blood 106 mmol/L (98-108); Creatinine, Blood 1.42 mg/dL (0.60-1.20); Globulin, Blood 4.7 g/dL (2.2-4.0); Glomerular Filtration Rate 54 (60-); Glucose, Blood 89 mg/dL (70-99); Sodium, Blood 141 mmol/L (136-145); Total Protein, Blood 8.1 g/dL (6.4-8.2)
[2019-09-24] MEDS ORDERED: CENTRUM SILVER1 EAC2 PO (15:54)
[2019-09-24] MEDS ORDERED: NARCAN4 MG (15:54)
[2019-09-24] MEDS ORDERED: POTA20PAC (15:55)
[2019-09-24] MEDS ORDERED: SERT100 PO (15:55)
[2019-09-24] MEDS ORDERED: HYDCOR2.5C PR (15:56)
[2019-09-24] MEDS ORDERED: HYDR25SUP PR (15:56)
[2019-09-24] MEDS ORDERED: MAGNESIUM OXID500 MG PO (15:57)
[2019-09-24] MEDS ORDERED: HYDHCL25 (15:57)
[2019-09-24 16:05] LABS: Troponin I <0.015 ng/mL (0.000-0.040)
[2019-09-24 16:18] LABS: Base Excess Venous 7.3 mmol/L; Bicarbonate Venous 29.9 mmol/L (24.0-30.0); PCO2 Venous 52.5 mmHg (38-42); PO2 Venous 110 mmHg (38-42)
[2019-09-24 16:46] LABS: Source, Urine Voided
[2019-09-24 16:49] LABS: Bilirubin, Urine Neg (Neg); Blood, Urine 5+ (Neg); Glucose Qualitative, Urine Neg (Neg); Ketones, Urine Neg (Neg); Leukocyte Esterase, Urine Neg (Neg); Nitrite, Urine Neg (Neg); Protein, Urine 2+ (Neg); Urobilinogen, Urine NORM (Normal)
[2019-09-24 17:02] LABS: U Amphetamine Screen Not Detected; U Barbituate Screen Not Detected; U Benzodiazapine Screen Not Detected; U Buprenorphine Screen Not Detected; U Cannabinoids Screen Not Detected; U Cocaine Screen Not Detected; U Methadone Screen Not Detected; U Methamphetamine Screen Not Detected; U Opiates Screen Not Detected; U Oxycodone Screen Not Detected; U Phencyclidine Screen Not Detected; U Propoxyphene Screen Not Detected
[2019-09-24 17:05] LABS: Appearance, Urine Clear (Clear); Color, Urine Yellow (P-Yellow)
[2019-09-24 17:06] LABS: Red Blood Cells, Urine 50-100 /hpf (0-2)
[2019-09-24 17:07] LABS: Bacteria Few /hpf; Squamous Epithelial Cells Not Seen /hpf (Few)
[2019-09-24 17:08] LABS: White Blood Cells, Urine Rare /hpf (0-5)
== END 2019-09-24 17:56 | disposition home or self-care (01) ==
LOC: ER 14:36
PROVIDERS: Emergency Medicine; Physician Assistant
DX: J40 Bronchitis, not specified as acute or chronic (principal); E87.2 Acidosis; L30.9 Dermatitis, unspecified; I89.0 Lymphedema, not elsewhere classified; G47.33 Obstructive sleep apnea (adult) (pediatric); I11.0 Hypertensive heart disease with heart failure; I50.32 Chronic diastolic (congestive) heart failure; E11.9 Type 2 diabetes mellitus without complications; J44.9 Chronic obstructive pulmonary disease, unspecified; E78.5 Hyperlipidemia, unspecified; N40.0 Benign prostatic hyperplasia without lower urinary tract symptoms; K21.9 Gastro-esophageal reflux disease without esophagitis; E66.01 Morbid (severe) obesity due to excess calories; Z68.43 Body mass index [BMI] 50.0-59.9, adult; Z88.6 Allergy status to analgesic agent; Z88.0 Allergy status to penicillin; Z88.8 Allergy status to other drugs, medicaments and biological substances; Z88.5 Allergy status to narcotic agent; Z88.1 Allergy status to other antibiotic agents; Z79.899 Other long term (current) drug therapy; Z79.51 Long term (current) use of inhaled steroids
CPT/HCPCS: 36415; 71046; 80053; 81001; 82803; 83880; 84484; 85025; 93005; 93010; 96360; 99284-25; J7030

== ENCOUNTER 2020-03-09 11:19 | Emergency (ER) | payer OTHER, MEDICARE ==
[~2020-03-09] VITALS: Ht 162.6 cm; Wt 145.2 kg
[~2020-03-09 11:19] MED LIST changes: +CENTRUM SILVER1 EAC2 PO; +HYDCOR2.5C PR; +HYDHCL25; +HYDR25SUP PR; +MAGNESIUM OXID500 MG PO; +POTA20PAC; +SERT100 PO
[2020-03-09 13:56] LABS: BASOPHILS ABSOLUTE AUTO 0.07 K/mm3 (0.00-0.23); BASOPHILS PERCENT AUTO 1 % (0-2); EOSINOPHILS ABSOLUTE AUTO 0.32 K/mm3 (0.00-0.68); EOSINOPHILS PERCENT AUTO 4 % (0-6); Hematocrit 41.6 % (37.0-53.0); Hemoglobin 12.3 g/dL (13.5-17.5); IMMATURE GRAN ABSOLUTE AUTO 0.06 K/mm3 (0.00-0.10); IMMATURE GRAN PERCENT AUTO 1 % (0-1); LYMPHOCYTES ABSOLUTE AUTO 1.43 K/mm3 (0.84-5.20); LYMPHOCYTES PERCENT AUTO 16 % (21-46); MONOCYTES ABSOLUTE AUTO 0.78 K/mm3 (0.16-1.47); MONOCYTES PERCENT AUTO 9 % (4-13); Mean Corpuscular HGB 25.1 pg (26.0-34.0); Mean Corpuscular HGB Conc 29.6 g/dL (31.5-36.5); Mean Corpuscular Volume 85 fL (80-100); NEUTROPHILS ABSOLUTE AUTO 6.41 K/mm3 (1.96-9.15); NEUTROPHILS PERCENT AUTO 71 % (41-73); RDW Coefficient Variation 18.6 % (11.7-14.2); RDW Standard Deviation 57.8 fL (35.1-46.3); White Blood Cell Count 9.07 K/mm3 (4.00-11.30)
[2020-03-09 13:57] LABS: Mean Platelet Volume 10.6 fL (9.1-12.4); Platelet Count 179 K/mm3 (150-400)
[2020-03-09 14:10] LABS: International Normalized Ratio 0.97; Prothrombin Time Results 10.4 Sec (9.7-11.5)
[2020-03-09 14:21] LABS: Alanine Aminotransfer (ALT/SGP 37 U/L (12-78); Albumin, Blood 3.4 g/dL (3.4-5.0); Albumin/Globulin Ratio 0.7 (0.8-1.8); Alk Phos 73 U/L (50-136); Anion Gap 6 mmol/L (6-16); Aspartate Aminotrans (AST/SGOT 31 U/L (12-37); Bilirubin, Total 0.4 mg/dL (0.1-1.0); Blood Urea Nitrogen 19 mg/dL (8-24); Bun/Creatinine Ratio 23.2 (12.0-20.0); CO2, Blood 30 mmol/L (21-32); Calcium, Blood 8.6 mg/dL (8.5-10.1); Chloride, Blood 103 mmol/L (98-108); Creatinine, Blood 0.82 mg/dL (0.60-1.20); Glomerular Filtration Rate >60 (60-); Glucose, Blood 103 mg/dL (70-99); Sodium, Blood 139 mmol/L (136-145); Total Protein, Blood 8.4 g/dL (6.4-8.2); Troponin I <0.015 ng/mL (0.000-0.040)
[2020-03-09] MEDS ORDERED: TRAM50 PO (16:24)
== END 2020-03-09 16:54 | disposition home or self-care (01) ==
LOC: ER 11:19
PROVIDERS: Emergency Medicine
DX: M25.562 Pain in left knee (principal); M54.5 Low back pain; Z88.0 Allergy status to penicillin; Z88.6 Allergy status to analgesic agent; Z88.5 Allergy status to narcotic agent; Z88.1 Allergy status to other antibiotic agents; Z88.8 Allergy status to other drugs, medicaments and biological substances; Z79.899 Other long term (current) drug therapy; I11.0 Hypertensive heart disease with heart failure; I50.9 Heart failure, unspecified; J44.9 Chronic obstructive pulmonary disease, unspecified; E11.40 Type 2 diabetes mellitus with diabetic neuropathy, unspecified; F43.10 Post-traumatic stress disorder, unspecified; E78.5 Hyperlipidemia, unspecified; G47.30 Sleep apnea, unspecified; N40.0 Benign prostatic hyperplasia without lower urinary tract symptoms; K21.9 Gastro-esophageal reflux disease without esophagitis; F32.9 Major depressive disorder, single episode, unspecified; Z87.891 Personal history of nicotine dependence; W18.30XA Fall on same level, unspecified, initial encounter
CPT/HCPCS: 36415; 70450; 71045; 72100; 73562-LT; 80053; 83880; 84484; 85025; 85610; 93005; 93010; 99285-25

== ENCOUNTER 2020-03-15 22:59 | Observation (INO) | payer OTHER, MEDICARE ==
[~2020-03-15] VITALS: Ht 154.9 cm; Wt 147.9 kg
[~2020-03-15 22:59] MED LIST changes: +ATOR20 PO; -POTA20PAC; +POTA20PAC PO; +TRAM50 PO
[2020-03-15 23:11] LABS: PCO2 Arterial 58.4 mmHg (35-45); PO2 Arterial 60.1 mmHg (80-100); pH Blood Arterial 7.38 (7.35-7.45)
[2020-03-15 23:25] LABS: BASOPHILS ABSOLUTE AUTO 0.04 K/mm3 (0.00-0.23); BASOPHILS PERCENT AUTO 0 % (0-2); EOSINOPHILS ABSOLUTE AUTO 0.29 K/mm3 (0.00-0.68); EOSINOPHILS PERCENT AUTO 3 % (0-6); Hematocrit 34.2 % (37.0-53.0); Hemoglobin 10.2 g/dL (13.5-17.5); IMMATURE GRAN ABSOLUTE AUTO 0.07 K/mm3 (0.00-0.10); IMMATURE GRAN PERCENT AUTO 1 % (0-1); LYMPHOCYTES ABSOLUTE AUTO 1.64 K/mm3 (0.84-5.20); LYMPHOCYTES PERCENT AUTO 17 % (21-46); MONOCYTES ABSOLUTE AUTO 1.02 K/mm3 (0.16-1.47); MONOCYTES PERCENT AUTO 10 % (4-13); Mean Corpuscular HGB 25.5 pg (26.0-34.0); Mean Corpuscular HGB Conc 29.8 g/dL (31.5-36.5); Mean Corpuscular Volume 86 fL (80-100); Mean Platelet Volume 10.1 fL (9.1-12.4); NEUTROPHILS ABSOLUTE AUTO 6.87 K/mm3 (1.96-9.15); NEUTROPHILS PERCENT AUTO 69 % (41-73); Platelet Count 215 K/mm3 (150-400); RDW Coefficient Variation 18.7 % (11.7-14.2); RDW Standard Deviation 58.9 fL (35.1-46.3); White Blood Cell Count 9.93 K/mm3 (4.00-11.30)
[2020-03-15 23:37] LABS: Source, Urine Catheter
[2020-03-15 23:44] LABS: Appearance, Urine Clear (Clear); Color, Urine Yellow (P-Yellow); Leukocyte Esterase, Urine Neg (Neg); Nitrite, Urine Neg (Neg); Protein, Urine Trace (Neg)
[2020-03-15 23:45] LABS: Bilirubin, Urine Neg (Neg); Blood, Urine 4+ (Neg); Glucose Qualitative, Urine Neg (Neg); Ketones, Urine Neg (Neg); Urobilinogen, Urine NORM (Normal)
[2020-03-15 23:46] LABS: Alanine Aminotransfer (ALT/SGP 31 U/L (12-78); Albumin/Globulin Ratio 0.7 (0.8-1.8); Alk Phos 63 U/L (50-136); Anion Gap 1 mmol/L (6-16); Aspartate Aminotrans (AST/SGOT 25 U/L (12-37); Bilirubin, Total 0.3 mg/dL (0.1-1.0); Blood Urea Nitrogen 19 mg/dL (8-24); CO2, Blood 35 mmol/L (21-32); Calcium, Blood 8.3 mg/dL (8.5-10.1); Chloride, Blood 105 mmol/L (98-108); Creatinine, Blood 0.91 mg/dL (0.60-1.20); Globulin, Blood 4.5 g/dL (2.2-4.0); Glomerular Filtration Rate >60 (60-); Glucose, Blood 158 mg/dL (70-99); Potassium, Blood 3.9 mmol/L (3.5-5.5); Sodium, Blood 141 mmol/L (136-145); Total Protein, Blood 7.5 g/dL (6.4-8.2); Troponin I <0.015 ng/mL (0.000-0.040)
[2020-03-15 23:50] LABS: Bacteria Few /hpf
[2020-03-15 23:51] LABS: Squamous Epithelial Cells Rare /hpf (Few)
--- NOTE | 2020-03-16 01:16 | NUR ---
ED ADMIT AT 0040 . VIA GUERNEY AND SLID OVER PER STAFF OF 5. ESCATATING W/ YELLING LOUDLY. SNORTING, BRUNTING, ESCALATING HE BOLTS UP IN THE BED AND FLINGS OUT OF BED TO STAND AND GRUNT MORE TURNING DUSKY W/ SUCH FORCE OF GRUNT TO MOAN AND YELL. STANDS AND LOOKS IF HE WILL FALL OVER DUE TO THE WAY HE IS STANDING. SATS 94 %. , SLIGHT DOZING POST VALIUM GIVEN FOR 5 MINUTES. WHEN RESP THERAPY TRIES TO GET PT ON CPAP, BOLTS OUT OF BED, FOR GRUNTING AND YELLING. FENTENYL GIVEN AT THIS TIME, WITH CONSTSANT YELLING
[2020-03-16] MEDS ORDERED: ELIQUIS5 MG PO (01:18)
[2020-03-16] MEDS ORDERED: LOPE2C PO (01:37)
[2020-03-16] MEDS ORDERED: PRAZ1 PO (01:37)
[2020-03-16 01:59] LABS: U Amphetamine Screen Not Detected; U Barbituate Screen Not Detected; U Benzodiazapine Screen Not Detected; U Buprenorphine Screen Not Detected; U Cannabinoids Screen Not Detected; U Cocaine Screen Not Detected; U Methadone Screen Not Detected; U Methamphetamine Screen DETECTED; U Opiates Screen Not Detected; U Oxycodone Screen Not Detected; U Phencyclidine Screen Not Detected; U Propoxyphene Screen Not Detected
--- NOTE | 2020-03-16 06:14 | NUR ---
SHIFT SUMMAARY. ALLOWED TO SLEEP FOR 3 HR AND THEN YELLS OUT AND RIPS OFF CPAP WHILE APPEARING TO BE ASLEEP . AROUSED FOR VS AND BLOOD DRAW AND NON STOP YELLING AND CONFUSED STATEMENTS AND ALOT OF FOUL LANGUAGE. UNABLE TO EVALUATE SKIN OF TARAN AREA DUE TO NEED TO BE HIGH FOWLERS FOR BRATHING COMMFORT. 4 L NC IS WNL SAT SINCE CPAP REMOVED IN FRUSTRATION OR DREAMING CONFUSION. MINIMAL C/O BACK PAIN AND IF LEFT ALONE SEEMS TO DOZE OFF OVER LAST 15 MIN.
[2020-03-16 06:30] LABS: BASOPHILS ABSOLUTE AUTO 0.07 K/mm3 (0.00-0.23); BASOPHILS PERCENT AUTO 1 % (0-2); EOSINOPHILS ABSOLUTE AUTO 0.36 K/mm3 (0.00-0.68); EOSINOPHILS PERCENT AUTO 3 % (0-6); Hematocrit 35.9 % (37.0-53.0); Hemoglobin 10.6 g/dL (13.5-17.5); IMMATURE GRAN ABSOLUTE AUTO 0.07 K/mm3 (0.00-0.10); IMMATURE GRAN PERCENT AUTO 1 % (0-1); LYMPHOCYTES ABSOLUTE AUTO 1.59 K/mm3 (0.84-5.20); LYMPHOCYTES PERCENT AUTO 14 % (21-46); MONOCYTES PERCENT AUTO 11 % (4-13); Mean Corpuscular HGB 25.4 pg (26.0-34.0); Mean Corpuscular HGB Conc 29.5 g/dL (31.5-36.5); Mean Corpuscular Volume 86 fL (80-100); Mean Platelet Volume 10.4 fL (9.1-12.4); NEUTROPHILS PERCENT AUTO 70 % (41-73); Platelet Count 211 K/mm3 (150-400); RDW Coefficient Variation 18.9 % (11.7-14.2); RDW Standard Deviation 59.3 fL (35.1-46.3); Red Blood Cell Count 4.18 M/mm3 (4.30-5.90); White Blood Cell Count 11.39 K/mm3 (4.00-11.30)
[2020-03-16 06:49] LABS: Alanine Aminotransfer (ALT/SGP 31 U/L (12-78); Albumin/Globulin Ratio 0.6 (0.8-1.8); Alk Phos 64 U/L (50-136); Anion Gap 1 mmol/L (6-16); Aspartate Aminotrans (AST/SGOT 25 U/L (12-37); Bilirubin, Total 0.5 mg/dL (0.1-1.0); Blood Urea Nitrogen 17 mg/dL (8-24); Bun/Creatinine Ratio 17.8 (12.0-20.0); CO2, Blood 35 mmol/L (21-32); Calcium, Blood 8.2 mg/dL (8.5-10.1); Chloride, Blood 102 mmol/L (98-108); Creatinine, Blood 0.96 mg/dL (0.60-1.20); Globulin, Blood 4.7 g/dL (2.2-4.0); Glomerular Filtration Rate >60 (60-); Glucose, Blood 127 mg/dL (70-99); Sodium, Blood 138 mmol/L (136-145); Total Protein, Blood 7.7 g/dL (6.4-8.2)
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
--- NOTE | 2020-03-16 12:44 | NUR ---
PT CONTINUES TO AWAKE UP YELLING, GRUNTING AND ATTEMPING TO GET OUT OF BED; CURRENTLY APPEARS TO BE SLEEPING. 3L O2 VIA NC IN PLACE, PT CONTINUES TO PULLING OFF.
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
--- NOTE | 2020-03-17 04:01 | NUR ---
SHIFT SUMMARY: APPROX 1999 PATIENT LUNGED AT RN WHILE REPEATING 'BITCH'. SECURITY CALLED, PRINT INSPECTOR AND NURSING CLINICAL LEADER CAME TO ROOM. PATIENT CONTINUED TO CALL EVERYONE IN THE ROOM A VARIETY OF NAMES. PATIENT DID NOT ATTEMPT TO LUNG AT NURSE AGAIN. PATIENT GIVEN FENTANYL X1 FOR PAIN. ALL OTHER VSS, PATIENT SLEEPING IN CHAIR WITH PRESSURE ALARM ON AND INCREASED STAFF MONITORING.
[2020-03-17 09:10] LABS: Anion Gap 4 mmol/L (6-16); Blood Urea Nitrogen 18 mg/dL (8-24); Bun/Creatinine Ratio 16.4 (12.0-20.0); CO2, Blood 37 mmol/L (21-32); Calcium, Blood 8.4 mg/dL (8.5-10.1); Chloride, Blood 97 mmol/L (98-108); Glomerular Filtration Rate >60 (60-); Glucose, Blood 123 mg/dL (70-99); Magnesium, Blood 2.1 mg/dL (1.6-2.4); Potassium, Blood 3.5 mmol/L (3.5-5.5); Sodium, Blood 138 mmol/L (136-145)
[2020-03-17] MEDS ORDERED: TORSEMIDE PO (11:03)
--- NOTE | 2020-03-17 15:17 | NUR ---
DISCHARGE SUMMARY PT A&Ox3; FORGETFUL. PT ANGRY AT TIMES, YELLING AND CUSSING AT STAFF. PT UNCOOPERATIVE AT TIMES AND NON COMPLIANT. PULLING AT LINE. REFUSING PULSE OX. PT REPORTS PAIN IN BACK AND NECK, REPOSITIIONED FOR COMFORT. SBA IN ROOM. PT REPORTS SOB; ABLE TO SPEAK IN FULL SENTENCES AND YELL AT STAFF. SPO2 >90 % ON RA; MID MORNING PT REQUEST CPAP; WORE FOR AN HOUR OR SO. PT DENIES NASUEA, DIZZINESS AND CHEST PAIN/PRESSURE. VSS. NO OTHER ACUTE CHANGES NOTED DURING SHIFT. [facility]. PT EDUCATED ON DISCHARGE INSTRUCTIONS, FOLLOW UP APPOINTMENTS AND MEDICATION. PT LEFT ROOM VIA WHEELCHAIR AT 1225; GOVERNMENT AFFAIRS RESEARCHER TOOK PT TO SECURITY TO RETREIVE BELONGINGS.
== END 2020-03-17 12:25 | disposition home or self-care (01) ==
LOC: ER 22:59 → PCU 23:00 → EDBEDREQSVC 03-16 00:45 → PCU 03-16 00:46 → ER 03-16 00:46 → PCU 03-16 00:46
PROVIDERS: Emergency Medicine; Hospitalist; ADMIT Internal Medicine
DX: J96.01 Acute respiratory failure with hypoxia (principal); I11.0 Hypertensive heart disease with heart failure; I50.33 Acute on chronic diastolic (congestive) heart failure; E66.01 Morbid (severe) obesity due to excess calories; G47.30 Sleep apnea, unspecified; J44.9 Chronic obstructive pulmonary disease, unspecified; F32.9 Major depressive disorder, single episode, unspecified; F15.10 Other stimulant abuse, uncomplicated; Z88.5 Allergy status to narcotic agent; Z88.8 Allergy status to other drugs, medicaments and biological substances; Z88.6 Allergy status to analgesic agent; Z88.0 Allergy status to penicillin; Z79.01 Long term (current) use of anticoagulants; Z79.899 Other long term (current) drug therapy; E11.40 Type 2 diabetes mellitus with diabetic neuropathy, unspecified; Z87.891 Personal history of nicotine dependence
CPT/HCPCS: 36415; 36600; 51702; 71045; 80048; 80053; 81001; 82803; 83735; 83880; 84484; 85025; 93005; 93010; 94660; 94667; 94760; 94761; 94762; 96374; 96375; 96376; 98960; 99285-25; G0378; J1940; J3010; J3360; U0002

== ENCOUNTER 2020-03-22 01:57 | Emergency (ER) | payer OTHER, MEDICARE ==
[~2020-03-22] VITALS: Ht 157.5 cm; Wt 145.2 kg
[~2020-03-22 01:57] MED LIST changes: +ELIQUIS5 MG PO; +LOPE2C PO; +PRAZ1 PO; +TORSEMIDE PO
== END 2020-03-22 02:57 | disposition home or self-care (01) ==
LOC: ER 01:57
DX: I87.2 Venous insufficiency (chronic) (peripheral) (principal); Z88.6 Allergy status to analgesic agent; Z88.0 Allergy status to penicillin; Z88.8 Allergy status to other drugs, medicaments and biological substances; Z88.5 Allergy status to narcotic agent; Z88.1 Allergy status to other antibiotic agents; Z79.899 Other long term (current) drug therapy; I11.0 Hypertensive heart disease with heart failure; I50.32 Chronic diastolic (congestive) heart failure; J44.9 Chronic obstructive pulmonary disease, unspecified; E11.9 Type 2 diabetes mellitus without complications; F43.10 Post-traumatic stress disorder, unspecified; G47.30 Sleep apnea, unspecified; E78.5 Hyperlipidemia, unspecified; K21.9 Gastro-esophageal reflux disease without esophagitis; D64.9 Anemia, unspecified; F32.9 Major depressive disorder, single episode, unspecified; Z87.891 Personal history of nicotine dependence
CPT/HCPCS: 99283

== ENCOUNTER 2020-03-23 22:39 | Emergency (ER) | payer OTHER, MEDICARE | END 2020-03-23 23:15 | disposition left against medical advice (07) | LOC: ER 22:39 | DX: Z53.21 Procedure and treatment not carried out due to patient leaving prior to being seen by health care provider (principal) ==

== ENCOUNTER 2020-05-19 12:35 | Inpatient (IN) | payer OTHER, MEDICARE ==
[~2020-05-19] VITALS: Ht 154.9 cm; Wt 160.1 kg
[2020-05-19 13:45] LABS: PO2 Arterial 120 mmHg (80-100)
[2020-05-19 13:46] LABS: PCO2 Arterial 80 mmHg (35-45); pH Blood Arterial 7.26 (7.35-7.45)
[2020-05-19 14:18] LABS: BASOPHILS ABSOLUTE AUTO 0.05 K/mm3 (0.00-0.23); BASOPHILS PERCENT AUTO 1 % (0-2); EOSINOPHILS ABSOLUTE AUTO 0.25 K/mm3 (0.00-0.68); EOSINOPHILS PERCENT AUTO 3 % (0-6); Hematocrit 40.7 % (37.0-53.0); Hemoglobin 11.8 g/dL (13.5-17.5); IMMATURE GRAN ABSOLUTE AUTO 0.04 K/mm3 (0.00-0.10); IMMATURE GRAN PERCENT AUTO 1 % (0-1); LYMPHOCYTES ABSOLUTE AUTO 1.24 K/mm3 (0.84-5.20); LYMPHOCYTES PERCENT AUTO 14 % (21-46); MONOCYTES ABSOLUTE AUTO 0.91 K/mm3 (0.16-1.47); MONOCYTES PERCENT AUTO 10 % (4-13); Mean Corpuscular HGB 25.4 pg (26.0-34.0); Mean Corpuscular Volume 88 fL (80-100); Mean Platelet Volume 10.2 fL (9.1-12.4); NEUTROPHILS ABSOLUTE AUTO 6.33 K/mm3 (1.96-9.15); NEUTROPHILS PERCENT AUTO 72 % (41-73); Platelet Count 239 K/mm3 (150-400); RDW Coefficient Variation 21.2 % (11.7-14.2); RDW Standard Deviation 66.7 fL (35.1-46.3); Red Blood Cell Count 4.64 M/mm3 (4.30-5.90); White Blood Cell Count 8.82 K/mm3 (4.00-11.30)
[2020-05-19 14:39] LABS: Alanine Aminotransfer (ALT/SGP 56 U/L (12-78); Albumin, Blood 3.1 g/dL (3.4-5.0); Albumin/Globulin Ratio 0.5 (0.8-1.8); Alk Phos 79 U/L (50-136); Anion Gap 2 mmol/L (6-16); Aspartate Aminotrans (AST/SGOT 43 U/L (12-37); Bilirubin, Total 0.5 mg/dL (0.1-1.0); Blood Urea Nitrogen 12 mg/dL (8-24); Bun/Creatinine Ratio 13.1 (12.0-20.0); CO2, Blood 35 mmol/L (21-32); Calcium, Blood 8.6 mg/dL (8.5-10.1); Chloride, Blood 104 mmol/L (98-108); Creatinine, Blood 0.91 mg/dL (0.60-1.20); Ethanol (Alcohol), Blood, Med <3 mg/dL; Globulin, Blood 5.7 g/dL (2.2-4.0); Glomerular Filtration Rate >60 (60-); Glucose, Blood 91 mg/dL (70-99); Potassium, Blood 4.3 mmol/L (3.5-5.5); Sodium, Blood 141 mmol/L (136-145); Total Protein, Blood 8.8 g/dL (6.4-8.2); Troponin I <0.015 ng/mL (0.000-0.040)
[2020-05-19 16:59] LABS: Base Excess Venous 8.5 mmol/L; Bicarbonate Venous 29.7 mmol/L (24.0-30.0); PCO2 Venous 81.1 mmHg (38-42); PO2 Venous 88.9 mmHg (38-42)
[2020-05-19 17:00] LABS: pH Blood Venous 7.25 (7.34-7.37)
--- NOTE | 2020-05-19 18:47 | NUR ---
ASSUMED PATIENT CARE. PATIENT ARRIVED FROM ED VIA GURNEY, BIPAP APPLIED. PATIENT IN LOW 90S O2 SAT. PATIENT HYPERTENSIVE AT 240/121, CRISTIANATING TOOL GRINDER NOTIFIED, ORDERS FOR HYDRALAZINE GIVEN. PATIENT BP IMPROVED TO 172/118. PATIENT HAS BECOME LESS AGITATED, PATIENT NO LONGER CALLING OUT AFTER HYDRALAZINE GIVEN. WCTM.
--- NOTE | 2020-05-19 19:33 | NUR ---
CARE ASSUMPTION PT LETHARGIC, DIFFICULT TO WAKE, AGITATED & CALLING OUT WHEN WOKEN. BP ELEVATED. MONITOR SHOWS SR, HR 80's-90's. SPO2 > 92% ON BIPAP: 18/10, FIO2 30%. RR 20's. BLE HOT TO TOUCH. WILL CONTINUE TO MONITOR & PROVIDE CARE.
[2020-05-20 02:01] LABS: U Amphetamine Screen DETECTED; U Barbituate Screen Not Detected; U Benzodiazapine Screen Not Detected; U Buprenorphine Screen Not Detected; U Cannabinoids Screen Not Detected; U Cocaine Screen Not Detected; U Methadone Screen Not Detected; U Methamphetamine Screen DETECTED; U Opiates Screen Not Detected; U Oxycodone Screen Not Detected; U Phencyclidine Screen Not Detected; U Propoxyphene Screen Not Detected
[2020-05-20 03:59] LABS: BASOPHILS ABSOLUTE AUTO 0.06 K/mm3 (0.00-0.23); BASOPHILS PERCENT AUTO 1 % (0-2); EOSINOPHILS ABSOLUTE AUTO 0.19 K/mm3 (0.00-0.68); EOSINOPHILS PERCENT AUTO 2 % (0-6); Hematocrit 35.6 % (37.0-53.0); Hemoglobin 10.4 g/dL (13.5-17.5); IMMATURE GRAN ABSOLUTE AUTO 0.05 K/mm3 (0.00-0.10); IMMATURE GRAN PERCENT AUTO 1 % (0-1); LYMPHOCYTES ABSOLUTE AUTO 1.28 K/mm3 (0.84-5.20); LYMPHOCYTES PERCENT AUTO 12 % (21-46); MONOCYTES ABSOLUTE AUTO 1.14 K/mm3 (0.16-1.47); MONOCYTES PERCENT AUTO 11 % (4-13); Mean Corpuscular HGB 25.3 pg (26.0-34.0); Mean Corpuscular HGB Conc 29.2 g/dL (31.5-36.5); Mean Corpuscular Volume 87 fL (80-100); Mean Platelet Volume 9.4 fL (9.1-12.4); NEUTROPHILS ABSOLUTE AUTO 7.94 K/mm3 (1.96-9.15); NEUTROPHILS PERCENT AUTO 74 % (41-73); Platelet Count 219 K/mm3 (150-400); RDW Coefficient Variation 21.2 % (11.7-14.2); RDW Standard Deviation 67.2 fL (35.1-46.3); Red Blood Cell Count 4.11 M/mm3 (4.30-5.90); White Blood Cell Count 10.66 K/mm3 (4.00-11.30)
[2020-05-20 04:27] LABS: Anion Gap 1 mmol/L (6-16); Blood Urea Nitrogen 13 mg/dL (8-24); Bun/Creatinine Ratio 13.1 (12.0-20.0); CO2, Blood 34 mmol/L (21-32); Calcium, Blood 8.4 mg/dL (8.5-10.1); Chloride, Blood 105 mmol/L (98-108); Creatinine, Blood 0.99 mg/dL (0.60-1.20); Glomerular Filtration Rate >60 (60-); Glucose, Blood 120 mg/dL (70-99); Potassium, Blood 4.2 mmol/L (3.5-5.5); Sodium, Blood 140 mmol/L (136-145)
--- NOTE | 2020-05-20 05:36 | NUR ---
SHIFT SUMMARY PT SLEEPING MAJORITY OF SHIFT, DIFFICULT TO WAKE. PT W/ 1 EPISODE OF ALERTNESS, ASKING "WHERE AM I? HAVE I BEEN IN A COMA? HOW LONG HAVE I BEEN HERE?" PT ABLE TO STATE NAME & , UNABLE TO STATE MONTH OR YEAR. PT ORIENTED TO PLACE, EVENT, DATE/TIME. ABLE TO STAND AT BEDSIDE FOR URINAL USE W/ 2 STAFF ASSIST & FWW. URINE SAMPLE SENT, (+) METH. PT L SIDE OF FACE/MOUTH & EYE TWITCHING INTERMITTENTLY WHILE PT AWAKE & TALKING W/ PT STATING "LET ME GET MY FACIAL STRUCTURE BACK TOGETHER." PT MAKING MULTIPLE FACIAL TIGHTENING EXPRESSIONS W/ LEFT SIDE OF FACE CONTINUING TO SPASM UNTIL PT RESTING BACK IN BED SLEEPING. BP ELEVATED THIS SHIFT, MEDICATED X1 PER EMAR, OTHERWISE VSS. MONITOR SHOWS SR, HR 80's-90's. SPO2 > 92% ON BIPAP: 18/07, FIO2 30%. RR 20's. WILL CONTINUE TO MONITOR & PROVIDE CARE UNTIL REPORT OFF TO DAY SHIFT RN.
--- NOTE | 2020-05-20 16:42 | NUR ---
SHIFT NOTE PT HAS REMAINED HOSTILE AND SHOUTING AT STAFF T/O THE DAY. PT HAS NOT BEEN VIOLENT WITH STAFF DURING THIS SHIFT, BUT HAS BEEN VERY DEMANDING AND CURSING. PT GOT UP TO BEDSIDE CHAIR W/O DIFFICULTY. VSS. PT IS TOLERATING BEING UP IN CHAIR VERY WELL. NO DISTRESS NOTED TODAY. PT IS REDIRECTABLE
--- NOTE | 2020-05-20 21:08 | NUR ---
CARE ASSUMPTION PT A&O TO SELF & LOCATION. PT VERY IRRITABLE, YELLING OUT AT STAFF. VSS. MONITOR SHOWS SR, HR 60's. SPO2 > 92% ON 2-4L NC. PT REQUIRING REMINDING TO TAKE DEEP BREATHS IN BETWEEN BITES WHILE EATING. PT NOW BACK ON BIPAP 18/10, FIO2 30%. PT RECLINING IN RECLINER CHAIR, SLEEPING AT THIS TIME. WILL CONTINUE TO MONITOR & PROVIDE CARE.
[2020-05-21 04:38] LABS: Anion Gap 1 mmol/L (6-16); Blood Urea Nitrogen 16 mg/dL (8-24); Bun/Creatinine Ratio 15.8 (12.0-20.0); CO2, Blood 35 mmol/L (21-32); Calcium, Blood 8.7 mg/dL (8.5-10.1); Chloride, Blood 102 mmol/L (98-108); Creatinine, Blood 1.01 mg/dL (0.60-1.20); Glomerular Filtration Rate >60 (60-); Glucose, Blood 153 mg/dL (70-99); Potassium, Blood 4.3 mmol/L (3.5-5.5); Sodium, Blood 138 mmol/L (136-145)
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
--- NOTE | 2020-05-21 14:12 | NUR ---
PT'S IV WENT BAD WHILE HE WAS SHOWERING. WHILE ATTEMPTING TO PLACE A NEW IV PT REFUSED A NEW IV STS "I DON'T NEED ONE" OLD IV SITE PRESSURE DRESSED, NO ACTIVE BLEEDING.
--- NOTE | 2020-05-21 18:38 | NUR ---
SHIFT NOTE PT HAS BEEN INTERMITTENTLY AGITATED T/O THE DAY, BUT COOPERATIVE. PT HAS BEEN ON BIPAP APPROX HALF OF THE SHIFT AND 4L O2 VIA NC WHEN OFF OF NC. PT REFUSED ADDITIONAL IV WHENHIS WAS REMOVED. LASIX WAS CHAGNED TO PO. PT IS RESTING WELL IN BED AT THIS TIME WATCHING TV. VSS T/O THE SHIFT. PT HAS BEEN SCREAMING OUT INTERMITTENTLY THIS SHIFT, BUT IS REDIRECTABLE
[2020-05-22 04:48] LABS: Anion Gap 2 mmol/L (6-16); Blood Urea Nitrogen 16 mg/dL (8-24); Bun/Creatinine Ratio 15.8 (12.0-20.0); CO2, Blood 38 mmol/L (21-32); Calcium, Blood 8.7 mg/dL (8.5-10.1); Chloride, Blood 98 mmol/L (98-108); Creatinine, Blood 1.01 mg/dL (0.60-1.20); Glomerular Filtration Rate >60 (60-); Glucose, Blood 122 mg/dL (70-99); Sodium, Blood 138 mmol/L (136-145)
--- NOTE | 2020-05-22 06:48 | NUR ---
SHIFT SUMMARY PT RESTING IN ROOM COMFORTABLY AT THIS TIME. NO ACUTE CHANGES IN STATUS T/O NIGHT. PT SLEPT OFF AND ON. YELLED OUT MULTIPLE TIMES TO STAFF. DID NOT USE CALL LIGHT APPROPRIATELY. PT WORE BIPAP FOR SHORT TIME PERID EARLY IN NIGHT THEN TOOK IT OFF AND REFUSED TO WEAR IT THE REST OF THE NIGHT. RESP UNEVEN AND TACHY ON 4L NC W/ SATS >92%. PT HAS CONGESTED COUGH, PRODUCTIVE. PT C/O PAIN ONCE DURING NIGHT AND WAS MEDICATED PER EMAR. PT IN CHAIR THIS AM. CALL LIGHT IN REACH.
--- NOTE | 2020-05-22 15:23 | NUR ---
SHIFT NOTE PT HAS BEEN BETWEEN BED AND CHAIR T/O THE DAY. PT REMAINS ALERT, WITH AGITATION, HE IS COOPERATIVE AND HAS BEEN PLEASANT WITH STAFF TODAY. PT WITH SPO2 94% OR GREATER ON BIPAP AND 4L O2 VIA NASAL CANNULA. PT DID REPORT SOME BACK PAIN THAT WAS RELIEVED WITH TYLENOL. PT HAS OTHERWISE HAD NO OTHER COMPLAINTS TODAY. SCALING OF LEG SKIN IS UNCHANGED T/O THE SHIFT.
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
--- NOTE | 2020-05-22 19:42 | NUR ---
PATIENT HAVING INCREASED AGITATION AND NOT REDIRECTABLE AT THIS TIME. PATIENT CURSING AT STAFF AND SWINGING ARMS AND LEGS. MULTIPLE BED EXIT ATTEMPTS. PATIENT NON-COMPLIANT. SECURITY PRESENT STAND BY ASSIST.
--- NOTE | 2020-05-22 21:06 | NUR ---
HOSPITALIST DR BELL ORDERED KATARZYNA VEST AND BILATERAL SOFT WRIST RESTRAINTS FOR INCREASE AGITATION, INJURY TO STAFF, INJURY TO SELF, AND NOT REDIRECTABLE AT THIS TIME. SECURITY PRESENT FOR VEST AND WRIST APPLICATION. PATIENT SWINGING ARMS, LEGS, AND CURSING. APPLICATION COMPLETE.
--- NOTE | 2020-05-23 01:13 | NUR ---
CAMERA MONITOR REPORTS PATIENT PULLED OFF ONE WRIST RESTRAINT. PATIENT NON-COMPLIANT IN PUTTING WRIST RESTRAINT BACK ON YELLING AND SCREAMING. PATIENT BECOMING VIOLENT AND SECOND RN REQUIRED TO REATTACH WRIST RESTRAINT. PATIENT CONTINUES TO YELL/SCREAM AT THIS TIME. PATIENT REMINDED OF TIME AND TO SLEEP. BLANKETS PULLED DOWN AND FAN REPOSITIONED FOR COMFORT. CALL LIGHT IN HAND.
--- NOTE | 2020-05-23 02:18 | NUR ---
THREE PERSON BED, LINEN, GOWN, AND KATARZYNA VEST CHANGE. PATIENT REPORTS HE IS URINATING IN BED AND NOT COMPLIANT USING URINAL. PATIENT CONTINUES TO YELL-SCREAM OUT INTO GUILLORY WHEN HE REPORTED MULTIPLE TIMES HE WOULD NOT CONTINUE. PATIENT PULLED CONTINUOUS PULSE OXIMETER PROBE OFF X FOUR.
--- NOTE | 2020-05-23 03:19 | NUR ---
STATING 94-95% ON 4L O2 NC CONTINUOUS PULSE OXIMETRY.
--- NOTE | 2020-05-23 03:44 | NUR ---
SHIFT SUMMARY PATIENT AGITATED AT SHIFT CHANGES YELLING/SCREAMING OUT INTO THE HALLS. MULTIPLE BED EXIT ATTEMPTS. SECURITY PRESENT SBA TO GET PATIENT BACK INTO BED. PATIENT CONTINUED TO ESCALATE IN AGITATION SWINGING ARMS AND LEGS AT STAFF. HOSPITALIST DR BELL ORDERED KATARZYNA VEST AND BILATERAL SOFT WRIST RESTRAINTS. FOUR PERSONS FOR VEST AND WRIST APPLICATION WITH SECURITY PRESENT SBA. PATIENT YELLED OUT INTO THE GUILLORY T/O THE SHIFT DEMANDING STAFF TO SEE HIM. AXOX 2-3 AND NOT ABLE TO REDIRECT AT TIMES. NO IV ACCESS. ON 4L O2 NC STATING 94-95% CONTINUOUS PULSE OXIMETRY. SOB W/EXERTION. CAMERA BRAILLE TYPIST REPORTED PATIENT PULLED OFF ONE WRIST RESTRAINT AND NON-COMPLIANT PUTTING IT BACK ON. TWO RN'S REQUIRED FOR APPLICATION WITH PATIENT CURSING. PATIENT REPORTED HE WOULD BE COMPLIANT AND IS NOT. ANXIOUS T/O THE SHIFT ASKING FOR MULTIPLE REPOSITIONING AND BLANKETS ON/OFF. PULLED PULSE OXIMETER OFF FINGER X FOUR. USED URINAL AT BEDSIDE TAKING A LONG TIME TO VOID. CALL LIGHT IN REACH. BED IN LOWEST POSITION AND ALARM ACTIVATED. WILL CONTINUE TO MONITOR UNTIL DAY SHIFT NURSE ASSUMES CARE.
--- NOTE | 2020-05-23 05:15 | NUR ---
PATIENT YELLING,"I NEED TO SEE A DOCTOR," FOR A FEW MINUTES. PATIENT REMINDED TO BE QUIET WHILE OTHER PATIENTS SLEPT. PATIENT NOT ABLE TO FOLLOW DIRECTIONS AT THIS TIME. PATIENT EVENTUALLY FELL BACK TO SLEEP. CALL LIGHT IN HAND.
--- NOTE | 2020-05-23 07:39 | NUR ---
PT YELLING AND SCREAMING DURING REPORT AND FOLLOWING. REPOSITIONED FOR COMFORT. REFUSING TO USE URINAL, VOIDING ALL OVER FLOOR AND RN ATTEMPTING TO ASSIST HIM. REFUSING RT TX'S AND VITAL SIGNS BY GOVERNMENT PROPERTY INSPECTOR. CALL LT IN REACH.
--- NOTE | 2020-05-23 08:35 | NUR ---
Initial palliative care consult: Farshad is a 64 year old gentleman who is well known to the palliative care nurses. He has a history of CHF, COPD, MASON, PTSD, GERD, morbid obesity and meth use. He is currently admitted to the hospital for encephalopathy. He is yelling out from his room when this leader writer entered his room. He is upset that he is in a nathaniel vest and bilat wrist restraints. He states "Take these off, I'm not going to hurt anyone." Attempted to de-escalate him and engage him in conversation. He is fixated on getting out of the restraints. He tells this leader writer "I'm better, I need to get out of these (restraints) so I can go home." Spoke with [employer] staff who are getting his breakfast tray ready to take into his room. Chart reviewed. He is currently homeless and living in his car. PC consult is for AD/POLST, advanced care planning and psych/social/moral distress. Will attempt to meet with pt again when he is not so anxious and aggitated and yelling.
[2020-05-23 10:53] LABS: Anion Gap 1 mmol/L (6-16); Blood Urea Nitrogen 16 mg/dL (8-24); Bun/Creatinine Ratio 17.5 (12.0-20.0); CO2, Blood 39 mmol/L (21-32); Calcium, Blood 8.7 mg/dL (8.5-10.1); Chloride, Blood 98 mmol/L (98-108); Creatinine, Blood 0.91 mg/dL (0.60-1.20); Glomerular Filtration Rate >60 (60-); Glucose, Blood 113 mg/dL (70-99); Potassium, Blood 4.3 mmol/L (3.5-5.5); Sodium, Blood 138 mmol/L (136-145)
--- NOTE | 2020-05-23 17:57 | NUR ---
SHIFT SUMMARY PT RESTING QUIETLY AT START OF SHIFT, DURING SHIFT REPORT. PT HAD BEEN YELLING, CURSING AND THREATENING STAFF FROM TX TO YESTERDAY AND LAST NIGHT. PT REFUSED ALL CARE THIS AM; RT TX'S, VITAL SIGNS, MEDS AND BREAKFAST. PT ALSO REFUSED TO USE CALL LT WHEN NEEDING TO VOID AND JUST VOIDED ON FLOOR AND BEDDING, REPEATEDLY. PT LATER ASSISTED UP IN BED, AGREED TO EAT BREAKFAST AND NOT BE VIOLENT. RESTRAINTS REMOVED AND BREAKFAST SET UP. PT THEN STARTED SHAKING AND BREATHING RAPIDLY AND APPEARED TO BE HAVING A SEIZURE EPISODE. CHEMICAL ENGINEERING INTERN CALLED. VSS, PT THEN REPORTING HE WAS HAVING A PANIC ATTACK FROM PTSD. DR JULIEN TO AND PT CALMED. PT REMAINED STABLE AND WAS MORE COMPLIANT WITH CARE OFFERED AND PROVIDED. PT ASSISTED TO CHAIR AND BED THRU OUT THE DAY, PER REQUEST, BUT FAILED TO USE CALL LT MOST OF DAY. [place] [facility] [place] VOIDING WELL USING URINAL EFFECTIVELY FOR THE MOST PART, THE REST OF THE DAY. PT WANTING TO GO HOME THIS AM, BUT DR JULIEN TOLD PT HE NEEDED TO STAY ONE MORE DAY. PT MOSTLY CO-OP THRU OUT THE DAY. BED BATH GIVEN, PT SHAVED PER REQUEST. LOTION APPLIED TO BLE'S. THIS EVENING, PT CALLED TO REQUEST AMA FORM, INSISTING ON LEAVING TONIGHT. ATTEMPTED SEVERAL TIMES TO EDU PT AND ENCOURAGE HIM TO WAIT UNTIL THE AM, BUT HE WAS ADAMANTLY OPPOSED TO STAYING. CHRG RN NOTIFIED, AND THEN DR JULIEN AND NRS PETROLEUM REFINERY WORKER. PT INFORMED OF RISKS OF LEAVING AMA, BUT INSISTED ON SIGNING FORM. AMA FORM GIVEN AND PT LEFT, PER HIS REQUEST.
== END 2020-05-23 17:10 | disposition left against medical advice (07) | DRG 291 ==
LOC: ER 12:35 → PCU 12:36 → MEDS 05-22 18:41
PROVIDERS: Emergency Medicine; Nurse Practitioner Acute Care; ADMIT Internal Medicine
PROC: 5A09357 Assistance with Respiratory Ventilation, Less than 24 Consecutive Hours, Continuous Positive Airway Pressure (ICD-10-PCS; principal; 2020-05-19)
DX: I11.0 Hypertensive heart disease with heart failure (principal); J96.21 Acute and chronic respiratory failure with hypoxia; G92 Toxic encephalopathy; J96.22 Acute and chronic respiratory failure with hypercapnia; E66.2 Morbid (severe) obesity with alveolar hypoventilation; Z68.43 Body mass index [BMI] 50.0-59.9, adult; E87.2 Acidosis; I50.33 Acute on chronic diastolic (congestive) heart failure; J44.9 Chronic obstructive pulmonary disease, unspecified; K21.9 Gastro-esophageal reflux disease without esophagitis; F43.10 Post-traumatic stress disorder, unspecified; E78.5 Hyperlipidemia, unspecified; F15.10 Other stimulant abuse, uncomplicated; E11.9 Type 2 diabetes mellitus without complications; N40.0 Benign prostatic hyperplasia without lower urinary tract symptoms; M19.90 Unspecified osteoarthritis, unspecified site; I27.20 Pulmonary hypertension, unspecified; Z59.0 Homelessness; Z86.14 Personal history of Methicillin resistant Staphylococcus aureus infection; Z86.718 Personal history of other venous thrombosis and embolism; Z87.891 Personal history of nicotine dependence; Z88.6 Allergy status to analgesic agent; Z88.5 Allergy status to narcotic agent; Z88.0 Allergy status to penicillin; Z88.8 Allergy status to other drugs, medicaments and biological substances
CPT/HCPCS: 36415; 36600; 71045; 80048; 80053; 82803; 83880; 84484; 85025; 86140; 93005; 93010; 94640; 94660; 94762; 96372; 96374; 99284-25; A9270; G0378; G0480; J0360; J1644; J1940